=== PATIENT | male | born 1960 | race Caucasian/White ===

== ENCOUNTER 2023-09-13 06:03 | Inpatient (IN) | payer OTHER, SELFPAY ==
[2023-09-03 08:04] VITALS: BMI 27.3
[2023-09-03 08:58] LABS: Hematocrit 42.4 % (39.0-52.0); Hemoglobin 14.2 g/dL (13.0-18.0); Mean Corp Hgb Conc. 33.5 g/dL (33.0-37.0); Mean Corpuscular Hgb 33.9 pg (27.0-31.0); Mean Corpuscular Volume 101.2 fL (80.0-94.0); Mean Platelet Volume 10.7 fL (7.4-10.4); Platelet Count 267 10^3/uL (130-400); Red Blood Cell Count 4.19 10^6/uL (4.70-6.10); Red Cell Dist. Width 15.8 % (11.5-14.5); White Blood Cell Count 8.8 10^3/uL (4.8-10.8)
[2023-09-03 09:13] LABS: INR 0.92; PT 12.6 Sec (11.4-14.6)
[2023-09-03 09:14] LABS: APTT 30.1 Sec (23.4-35.0)
[2023-09-03 09:36] LABS: Glycohemoglobin (HgbA1c) 5.2 % (4.0-5.6)
[2023-09-03 11:23] LABS: ALT (SGPT) 24 U/L (0-50); AST (SGOT) 30 U/L (17-59); Albumin 4.1 g/dl (3.5-5.0); Alkaline Phosphatase 67 U/L (38-126); Blood Urea Nitrogen 16 mg/dl (9-20); Calcium 9.1 mg/dl (8.4-10.2); Carbon Dioxide 30 mmol/L (22-30); Chloride 103 mmol/L (98-107); Estimated Creatinine Clearance 115 ml/min; Glucose 114 mg/dl (70-99); Potassium 4.7 mmol/L (3.5-5.1); Sodium 135 mmol/L (135-145); Total Protein 6.7 g/dl (6.3-8.2); eGFR > 60.00
[2023-09-13] VITALS (31 sets, daily range): BP systolic 0–477; BP diastolic 42–95; BMI 27.3
[2023-09-13] MEDS: NEURONTIN 600 MG PO (06:44)
[2023-09-13] MEDS: NORMOSOL-R 1000 IV ×2 (06:44→17:21)
[2023-09-13] MEDS: TYLENOL 1000 MG PO (06:44)
[2023-09-13] MEDS: ENTEREG 12 MG PO (06:44)
[2023-09-13] MEDS: HEPARIN 5000 UNITS SC (06:44)
--- NOTE | 2023-09-13 15:13 | W.IMMPOSTOP ---
Surgical Immed Post Op Note
-
Primary Surgeon: Patrice Ortiz MD
Assisting Surgeon: YANE Sarabia
Pre-op Diagnosis: colovesical fistula
Post-op Diagnosis: same
Procedure Performed: 1) robotic sigmoidectomy 2) takedown colovesical fistula 3) takedown splenic flexure 4) partial small bowel resection 5) flexible sigmoidoscopy
Anesthesia Type: general plus local
Specimen / Cultures: 1) sigmoid colon to include source of fistula 2) small portion of small bowel
Estimated Blood Loss: 200 cc
Complications: distal left ureteral injury (addressed by urology--Dr. Lorenz--via primary repair)
Operative Findings: 1) chronically inflamed sigmoid colon fused to pelvis/bladder 2) loop of small bowel adherent to bladder
Ricci/ureteral stents and ureteral ICG by urology (Dr. Camarillo)--stents and ricci to be managed by urology
#19 Blaine in pelvis
Will send to IMU.
Will continue antibiotics for a few days as had some intraabdominal spillage.
--- NOTE | 2023-09-13 16:08 | CON.HOSP ---
Consultation
-
Date/Time Consultation Requested: 09/13/23
Date/Time Consultation Performed: 09/13/23
Requesting Provider: Dr Ortiz
Performing Provider:
Reason for Consultation: Medical management
Family Physician
-
Family Physician: Dixon Donaldson
Chief Complaint
-
robotic sigmoidectomy and takedown colovesical fistula
History of Present Illness
62-year-old male with past medical history of essential hypertension, tobacco use, alcohol use, diverticulitis, colovesical fistula, chronic low back pain, rectal polyp came to the hospital for robotic sigmoidectomy with takedown of Colovesicle
fistula. Patient was taken to the surgery today by colorectal. Medicine is consulted for medical management. Patient does report drinking alcohol and also does report history of smoking. Per Spouse he drinks vodka and whiskey everyday. He does
withdraw from alcohol per . Went to the rehab 18years ago but relapsed within couple months later. Last drink was yesterday per . Currently he is post anesthesia and sedated. Denies chest pain
Medical History
Past Medical History
Past Medical History: Reports HTN
Past Surgical History: Reports Bowel Resection
Social History
Tobacco: Smoker
Alcohol: Daily
Family History
Family History: Reviewed & Not Pertinent
Allergies / Home Medications
Allergies reflects when Allergies were last updated in [employer]
Home Medications with original date entered in [employer]
Allergy/Medication List:
Allergies
Allergy/AdvReac Type Severity Reaction Status Date / Time
lisinopril Allergy Swelling/face Verified 09/13/23 06:16
swelling
Home Medications
hydrocodone 5 mg-acetaminophen 325 mg tablet 1 tab PO Q4H PRN moderate pain 04/13/23
oxycodone 5 mg tablet 5 mg PO Q6H PRN pain 09/07/23
Balance Of Nature 2 cap PO DAILY 09/13/23
sodium sul 1.479 gram-potas ch 0.188 gram-magnes sul 0.225 gram tablet (Sutab) 0 tab PO PER PKG DIR 09/13/23
Review of Systems
-
History Source: Patient
A 12 point Review of Systems was completed except as noted: Yes
Physical Exam
Vital Signs
Vital Signs
Temp Pulse Resp BP Pulse Ox
98.8 F 102 35 90/73 96
09/13/23 15:28 09/13/23 15:28 09/13/23 15:28 09/13/23 15:28 09/13/23 15:28
Physical Exam
General: Well Nourished and No Apparent Distress
HEENT: Anicteric and Moist Mucous Membranes
Cardiac: S1/S2 and Regular Rhythm
Breast: Deferred by me
GI: Soft, Non Tender and Non Distended
Genito-urinary: Morgan Catheter
Musculoskeletal: No Edema
Neuro: Awake
Psych: Calm
Laboratory Results
-
PT 12.6 Sec (11.4-14.6) 09/03/23 06:42
INR 0.92 09/03/23 06:42
APTT 30.1 Sec (23.4-35.0) 09/03/23 06:42
Total Bilirubin 1.0 mg/dl (0.2-1.3) 09/03/23 06:42
AST 30 U/L (17-59) 09/03/23 06:42
ALT 24 U/L (0-50) 09/03/23 06:42
Alkaline Phosphatase 67 U/L (38-126) 09/03/23 06:42
Impression / Plan
-
Elective robotic sigmoidectomy with takedown of colovesicular fistula.
Management per colorectal
DVT prophylaxis per colorectal
basic labs pending which are ordered by primary team
pain control
Also with Morgan catheter along with ureteral stent and ureteral ICG by urology
Management per urology
Alcohol use with abuse
MSAS; ativan prn
folic acid,thiamine
IVF
Currently not actively withdrawing, last drink per was yesterday. If does show signs of withdrawal or MSAS high then can be started on phenobarbital or Precedex
hx of smoking
start nicotine patch
DVTppx
per primary team
Full code
[2023-09-13] MEDS: DILAUDID 0.5 MG IV ×2 (16:12→20:01)
[2023-09-13 16:21] LABS: % Basophils 0.3 % (0-2); % Immature Granulocytes 0.3 % (0-0.5); % Lymphocytes 8.7 % (20.5-51.1); % Monocytes 9.5 % (1.7-9.3); % Neutrophils 81.2 % (42.2-75.2); Absolute Lymphocytes 0.6 10^3/uL (1.2-3.4); Absolute Monocytes 0.7 10^3/uL (0.1-0.6); Absolute Neutrophils 5.6 10^3/uL (1.4-6.5); Hematocrit 38.2 % (39.0-52.0); Mean Corpuscular Hgb 33.7 pg (27.0-31.0); Mean Platelet Volume 10.2 fL (7.4-10.4); Nucleated Red Blood Cells % 0 % (-); Platelet Count 248 10^3/uL (130-400); Red Blood Cell Count 3.86 10^6/uL (4.70-6.10); White Blood Cell Count 6.9 10^3/uL (4.8-10.8)
[2023-09-13] MEDS: ATIVAN 1 MG IV (16:39)
[2023-09-13 16:40] LABS: Blood Urea Nitrogen 21 mg/dl (9-20); Carbon Dioxide 18 mmol/L (22-30); Chloride 102 mmol/L (98-107); Estimated Creatinine Clearance > 125 ml/min; Glucose 213 mg/dl (70-99); Magnesium 2.3 mg/dl (1.6-2.3); Potassium 3.9 mmol/L (3.5-5.1); Sodium 133 mmol/L (135-145); eGFR > 60.00
[2023-09-13] MEDS: TORADOL 10 MG IV (17:23)
[2023-09-13] MEDS: TYLENOL PO ×2 (19:06→23:30)
[2023-09-13] MEDS: FOLVITE PO (19:07)
[2023-09-13] MEDS: NICODERM TRANSDERMAL TRANSDERM (19:07)
--- NOTE | 2023-09-13 19:19 | PTCARENOTE ---
pt arrived to imu from [facility] at 1820. pt drowsy but awakens to voice. sinus rythym on monitor. sats 98 on 2 liters occasional moist cough. bwel sounds hypoactive abd soft. maykel to right abd draining large amts bloody drainage. 230 mls emptied since
arrival to floor. dr judge notified via tiger text. spoke with pacu nurse who was able to contact surgeon in the or. will continue to monitor. reported to oncoming shift. ricci with stents in place draining radha urine. incisions approximated with
no drainage. no signs of alcohol withdrawal apparent at this time.
[2023-09-13 19:37] LABS: Hematocrit 35.5 % (39.0-52.0); Hemoglobin 12.6 g/dL (13.0-18.0)
--- NOTE | 2023-09-13 19:49 | W.PN.UPDATE ---
Update Note
Progress Note Update
Updated by nursing in IMU that patient put out a lot of bloody output into IDA. I evaluated patient at bedside recently. HR high 90s. BP 116/81. IDA output is dark blood. Abdomen not obviously distended. Patient groggy but appropriate. Holding
Toradol. Ordered a gram of Tranexemic Acid IV. Repeat Hg 12.6 from 13.0. Will recheck at [facility].
[2023-09-13] MEDS: TRANEXAMIC ACID 100 IV (19:51)
[2023-09-13] MEDS: THIAMINE INJECTION 200 MG IV (19:51)
[2023-09-13] MEDS: TYLENOL 650 MG PO (20:01)
[2023-09-13] MEDS: FLOMAX 0.400000000000000022 MG PO (20:42)
[2023-09-14] VITALS (47 sets, daily range): BP systolic 90–132; BP diastolic 60–87; BMI 26.6
[2023-09-14] MEDS: DILAUDID 0.5 MG IV ×8 (00:12→22:46)
[2023-09-14] MEDS: NORMOSOL-R 1000 IV ×2 (02:07→12:02)
[2023-09-14] MEDS: TYLENOL 650 MG PO ×5 (02:25→20:07)
[2023-09-14 04:03] LABS: % Basophils 0.6 % (0-2); % Immature Granulocytes 0.1 % (0-0.5); % Lymphocytes 10.4 % (20.5-51.1); % Monocytes 9.6 % (1.7-9.3); % Neutrophils 79.3 % (42.2-75.2); Absolute Lymphocytes 0.8 10^3/uL (1.2-3.4); Absolute Monocytes 0.7 10^3/uL (0.1-0.6); Absolute Neutrophils 5.7 10^3/uL (1.4-6.5); Hematocrit 34.2 % (39.0-52.0); Hemoglobin 11.6 g/dL (13.0-18.0); Mean Corp Hgb Conc. 33.9 g/dL (33.0-37.0); Mean Corpuscular Hgb 33.4 pg (27.0-31.0); Mean Corpuscular Volume 98.6 fL (80.0-94.0); Mean Platelet Volume 10.8 fL (7.4-10.4); Nucleated Red Blood Cells % 0 % (-); Platelet Count 226 10^3/uL (130-400); Red Blood Cell Count 3.47 10^6/uL (4.70-6.10); Red Cell Dist. Width 14.9 % (11.5-14.5); White Blood Cell Count 7.2 10^3/uL (4.8-10.8)
[2023-09-14 04:42] LABS: Blood Urea Nitrogen 26 mg/dl (9-20); Calcium 7.7 mg/dl (8.4-10.2); Carbon Dioxide 22 mmol/L (22-30); Chloride 100 mmol/L (98-107); Estimated Creatinine Clearance 115 ml/min; Glucose 197 mg/dl (70-99); Magnesium 2.5 mg/dl (1.6-2.3); Potassium 4.4 mmol/L (3.5-5.1); Sodium 132 mmol/L (135-145); eGFR > 60.00
--- NOTE | 2023-09-14 06:31 | PTCARENOTE ---
Patient with large amount of sanguinous drainage out of the right IDA tube. Surgeon made aware and ordered tranexamic acid. Total output of 470 from IDA drain overnight. Patient OOB to chair per request. Vital signs stable.
--- NOTE | 2023-09-14 06:33 | PTCARENOTE ---
Patient with 8/10 abd pain despite dilaudid being administered at 0445. Patient not due until 845 and requesting another dose. call center specialist provider made aware and ordered 1x dose.
[2023-09-14] MEDS: ENTEREG 12 MG PO ×2 (09:02→20:07)
[2023-09-14] MEDS: PROTONIX 40 MG PO (09:02)
[2023-09-14] MEDS: INVANZ 60 MG IV (09:02)
[2023-09-14] MEDS: NICODERM TRANSDERMAL TRANSDERM (09:03)
[2023-09-14] MEDS: FOLVITE 1 MG PO (09:03)
[2023-09-14] MEDS: THIAMINE INJECTION 200 MG IV ×2 (09:03→20:07)
--- NOTE | 2023-09-14 11:58 | W.PN.URO.CBU ---
Today's Communication / Plan
-
keep ricci and stents
check maykel fluid for cr level
eventual plan for stent exchange in OR next week
Assessment / Plan
-
s/p colectomy with takedown of colo-ves fistula and repair of left ureteral injury
pt has ricci and bilateral open ended stents in place
serum cr normal- with high maykel output will check for cr level
plan is to continue all urologic drains as it- with plan early next week in or to exchange left ureteral stent for internal JJ
Diagnosis
-
Date of Service: September 14, 2023
-
Patient Diagnosis:
s/p colectomy with repair of colo-ves fistula and repair of left ureteral injury
Post Op Day:
09/13/23
Subjective
-
pt awake
some mild abd pain
ricci and both ureteral stents in place
urine bloody but good output
high Maykel output
Objective
-
Vital Signs
Temp Pulse Resp BP Pulse Ox
98.0 F 95 22 103/70 93
09/14/23 11:10 09/14/23 06:00 09/14/23 06:00 09/14/23 06:00 09/14/23 06:00
Intake and Output
09/13/23 09/14/23 09/15/23
06:59 06:59 06:59
Intake Total 1550 / 1550
Output Total 2202 / 2202 90 / 90
Balance -652 / -652 -90 / -90
Intake:
IV fluids (Total) 1550 / 1550
normosol 350 / 350
Output:
Drain Output (Total) 1177 / 1177 90 / 90
Right Lower Abdomen Jose G- 1177 / 1177 90 / 90
Mcdaniel
Right Upper Abdomen Jose G- 0 / 0
Mcdaniel
Urine, Ricci 1025 / 1025
Laboratory Results
09/14/23 03:10
09/14/23 03:10
Physical Exam
-
General - no acute distress
Abdomen - soft, appropriately tender
Genitalia - normal- ricci and bilateral ureteral stents in place
Skin - warm & dry with no rash
Neuro - AOx3, no motor deficits
Extremities - no clubbing, no cyanosis, no edema
Incision - clean, dry
[2023-09-14 13:31] LABS: Body Fluid Creatinine 0.8 mg/dl
--- NOTE | 2023-09-14 13:51 | W.PN.CRS1 ---
Addendum entered and electronically signed by Rui Ortiz MD 09/14/23 17:33:
Of note, I updated the via a voicemail message to her cell phone this afternoon.
Addendum entered and electronically signed by Rui Ortiz MD 09/14/23 17:28:
I saw and examined the patient.
The PA's note was reviewed and I agree with the note.
Comment:
Patient seen with PA in the a.m.
Was sitting up in a chair. Was verbal and appropriate. A bit groggy. Some hiccups. Denied nausea. Admitted to discomfort particular at the drain site. Asked for stronger pain medication.
Afebrile with reasonable vital signs. White count normal at 7.2. Hemoglobin 11.6 from 12.6 preop.
Abdomen a bit distended. Incisions look good. MAYKEL with bloody drainage. Ricci and bilateral stents in place. Urine dark.
Continuing sips and chips for now.
Management of Ricci and stents per urology. Dr. Wu's note noted and appreciated. MAYKEL creatinine was sent off and was consistent with serum at 0.8.
Holding Toradol and Lovenox for now given bloody MAYKEL output.
Appreciate hospitalist help in medical management.
Keep in IMU for now.
Original Note:
Today's Communication / Plan
-
continue maykel drain/abx/imu status
continue ricci/stent per urology
increase dilaudid
Assessment/Plan
-
POD#1 robotic sigmoidectomy, takedown colovesical fistula, takedown splenic flexure, partial small bowel resection, flexible sigmoidoscopy
1. Vitals normal.
2. Hgb 11.6 - continue to trend.
3. OOB to chair as tolerated.
4. Continue ricci and stents per urology.
5. Continue MAYKEL drain.
6. Continue antibiotics for now.
7. OR pathology pending.
8. Increase IV Dilaudid to q2h PRN.
9. Continue NPO for now until bowel function returns.
10. Keep in IMU today.
Subjective Data
Procedure
09/14/2023- 1) robotic sigmoidectomy 2) takedown colovesical fistula 3) takedown splenic flexure 4) partial small bowel resection 5) flexible sigmoidoscopy
Subjective Data
Date of Service: September 14, 2023
Patient states he feels a little bloated. He has pain around his MAYKEL drain site. He has no nausea or vomiting. He has hiccups. He is sitting in a chair.
Objective Data
-
Vital Signs
Temp Pulse Resp BP Pulse Ox
98.0 F 88 20 104/68 95
09/14/23 11:10 09/14/23 12:30 09/14/23 12:30 09/14/23 12:30 09/14/23 12:30
Intake & Output
09/13/23 09/14/23 09/15/23
06:59 06:59 06:59
Intake Total 1550 / 1550
Output Total 2202 / 2202 135 / 135
Balance -652 / -652 -135 / -135
Intake:
IV fluids (Total) 1550 / 1550
normosol 350 / 350
Output:
Drain Output (Total) 1177 / 1177 135 / 135
Right Lower Abdomen Jose G- 1177 / 1177 135 / 135
Mcdaniel
Right Upper Abdomen Jose G- 0 / 0
Mcdaniel
Urine, Ricci 1025 / 1025
Lab Results
09/14/23 03:10
09/14/23 03:10
Physical Exam
-
General: No Acute Distress and AOx3
Abdomen: Soft, Non Distended, Tender (Right lower quadrant around MAYKEL drain site) and Other (MAYKEL drain with bloody output)
Skin: Warm and Dry
Incision: Clear, Dry, Intact
--- NOTE | 2023-09-14 15:06 | PTCARENOTE ---
Pt assisted back to bed. sat out in chair over 8 hours today. anxious to get up and walking. sample from IDA drain was sent to lab earlier for testing per Dr. Segundo orders. PT resting comfortably when undisturbed.
--- NOTE | 2023-09-14 16:53 | CM ---
Patient who is s/p robotic sigmoidectomy and takedown colovesical fistula, Morgan catheter along with ureteral stent and ureteral ICG. IDA drain. Reeiving IV ertapenum. MSAS 1 today. Plan stent exchange in OR next week.
Met with patient who resides with his in a 2 story house.
The patient was Independent for ADLs/ambulation.
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
No DME or prior VN.
PCP - Dixon Donaldson
[facility] - [facility]
CM Consult: Substance Abuse
Offered [facility] for substance abuse resources and patient declined.
CM continuing to follow for d/c needs.
Plan offer VN if patient goes home with IDA drain.
Plan home.
--- NOTE | 2023-09-14 18:34 | PTCARENOTE ---
Pt felt urge to move bowels, sat on bedpan but only passed flatus. PRN Dilaudid administered for 9/10 discomfort to right lower abd quadrant - see MAR for details. Pt's in to visit-updated by this RN and by Dr. Ortiz by phone, questions
answered, will continue to closely monitor.
--- NOTE | 2023-09-14 19:07 | W.PN.HOSP.TC ---
Today's Communication/Plan
-
follow labs
observe for risk of Etoh withdrawal
Assessment / Plan
Assessment / Plan
Elective robotic sigmoidectomy with takedown of colovesicular fistula
Morgan catheter to continue
Hx of alcohol use
Hx of cig smoking
reviewed importance of cessation
full code
Anticipated Discharge: > 48 hours
Subjective/Interval History
-
Date of Service: September 14, 2023
Awake, alert
Objective Data
-
Vital Signs:
Vital Signs
Temp Pulse Resp BP Pulse Ox
98.0 F 99 16 129/87 93
09/14/23 11:10 09/14/23 18:00 09/14/23 18:00 09/14/23 18:00 09/14/23 14:30
I&O
09/13/23 09/14/23 09/15/23
06:59 06:59 06:59
Intake Total 1550 / 1550 2160 / 2160
Output Total 2202 / 2202 765 / 765
Balance -652 / -652 1395 / 1395
Review of Systems
-
History Source: Patient and Family ( at bedside)
Constitutional: Denies Fever
EENT: Reports No Symptoms Reported
Respiratory: Reports No Symptoms; Denies Cough or Trouble Breathing
Cardiac: Reports No Symptoms; Denies Chest Pain
Abdomen/GI: Reports Abdominal Pain; Denies Nausea or Vomiting
Genitourinary: Reports No Symptoms
Neuro: Reports No Symptoms
Physical Exam
-
General: Well Developed, Well Nourished and No Apparent Distress
HEENT: Normocephalic, Atraumatic and Moist Mucous Membranes
Respiratory: Clear to Auscultation; Negative Wheezes, Rales or Rhonchi
Cardiac: Regular Rhythm and S1/S2
GI: Soft; Negative Normal Bowel Sounds (absent BS)
Genito-urinary: Morgan
Musculoskeletal: No Clubbing, No Cyanosis and No Edema
Neuro: Awake, Alert and Oriented
[2023-09-14] MEDS: FLOMAX 0.400000000000000022 MG PO (20:07)
[2023-09-14] MEDS: NORMOSOL-R IV (23:53)
[2023-09-14] MEDS: TYLENOL PO (23:55)
[2023-09-15] VITALS (26 sets, daily range): BP systolic 109–153; BP diastolic 70–94; BMI 27.1
[2023-09-15] MEDS: DILAUDID 0.5 MG IV ×7 (01:05→22:55)
[2023-09-15] MEDS: TYLENOL 650 MG PO ×5 (03:26→19:47)
[2023-09-15 03:50] LABS: Hematocrit 29.1 % (39.0-52.0); Mean Corp Hgb Conc. 34.4 g/dL (33.0-37.0); Mean Platelet Volume 10.3 fL (7.4-10.4); Platelet Count 201 10^3/uL (130-400); Red Blood Cell Count 2.94 10^6/uL (4.70-6.10); Red Cell Dist. Width 14.6 % (11.5-14.5); White Blood Cell Count 10.2 10^3/uL (4.8-10.8)
--- NOTE | 2023-09-15 03:57 | PTCARENOTE ---
Patient requiring prn dilaudid almost every 2 hours overnight. Right IDA drain still with sanguinous drainage, dressing clean dry and intact. Morgan draining blood tinged urine with stents intact.
[2023-09-15 04:13] LABS: Blood Urea Nitrogen 18 mg/dl (9-20); Calcium 7.9 mg/dl (8.4-10.2); Carbon Dioxide 28 mmol/L (22-30); Chloride 96 mmol/L (98-107); Estimated Creatinine Clearance > 125 ml/min; Glucose 125 mg/dl (70-99); Potassium 3.8 mmol/L (3.5-5.1); Sodium 127 mmol/L (135-145); eGFR > 60.00
[2023-09-15] MEDS: INVANZ 60 MG IV (07:28)
--- NOTE | 2023-09-15 07:31 | W.PN.URO.CBU ---
Today's Communication / Plan
-
continue ricci and external stents
Assessment / Plan
-
s/p colectomy with takedown of colo-ves fistula and repair of left ureteral injury
pt has ricci and bilateral open ended stents in place
serum cr normal- with high maykel output but no evid of urine leak
plan is to continue all urologic drains as it- with plan early next week in or (sunday or sun) to exchange left ureteral stent for internal JJ
reviewed plan with patient
Diagnosis
-
Date of Service: September 15, 2023
-
Patient Diagnosis:
s/p colectomy with repair of colo-ves fistula and repair of left ureteral injury
Post Op Day:
09/13/23
Subjective
-
pt somewhat anxious
c/o primaryily of right hip pain
some bloating
urine clearing
good output
maykel still with moderate drainage- cr check yesterday c/w serum
Objective
-
Vital Signs
Temp Pulse Resp BP Pulse Ox
98.4 F 87 19 112/70 97
09/15/23 03:15 09/15/23 06:05 09/15/23 06:05 09/15/23 06:05 09/14/23 20:50
Intake and Output
09/14/23 09/15/23 09/16/23
06:59 06:59 06:59
Intake Total 1550 / 1550 2160 / 2160
Output Total 2202 / 2202 925 / 925 1040 / 1040
Balance -652 / -652 1235 / 1235 -1040 / -1040
Intake:
Oral fluids 960 / 960
IV fluids (Total) 1550 / 1550 1200 / 1200
normosol 350 / 350
Output:
Drain Output (Total) 1177 / 1177 425 / 425 40 / 40
Right Lower Abdomen Jose G- 1177 / 1177 425 / 425 40 / 40
Mcdaniel
Right Upper Abdomen Jose G- 0 / 0
Mcdaniel
Urine, Ricci 1025 / 1025 500 / 500 1000 / 1000
Laboratory Results
09/15/23 03:32
09/15/23 03:32
Review of Systems
-
Constitutional: Fatigue
Respiratory: No Symptoms
Cardiac: No Symptoms
Abdomen/GI: Abdominal Pain
Musculoskeletal: Joint Pain
Physical Exam
-
General -, no acute distress
Abdomen - mild distension
Genitalia - ricci and external stents in place
Skin - warm & dry with no rash
Neuro - AOx3, no motor deficits
Extremities - no clubbing, no cyanosis, no edema
Incision - clean, dry
[2023-09-15] MEDS: ENTEREG 12 MG PO ×2 (08:28→19:47)
[2023-09-15] MEDS: PROTONIX 40 MG PO (08:28)
[2023-09-15] MEDS: NICODERM TRANSDERMAL 14 MG TRANSDERM (08:28)
[2023-09-15] MEDS: FOLVITE 1 MG PO (08:28)
[2023-09-15] MEDS: THIAMINE INJECTION 200 MG IV ×2 (08:29→19:47)
[2023-09-15] MEDS: DILAUDID 0.25 MG IV (11:36)
--- NOTE | 2023-09-15 12:20 | W.PN.CRS1 ---
Today's Communication / Plan
-
Clears.
Lovenox.
Assessment/Plan
-
POD 2.
1. trial clears.
2. vitals and labs reasonable.
3. ricci/stents per urology.
4. OOB.
5. start Lovenox this evening. Continue TEDs/SCDs.
6. continue IMU care.
7. appreciate hospitalist help.
Subjective Data
Procedure
09/14/2023- 1) robotic sigmoidectomy 2) takedown colovesical fistula 3) takedown splenic flexure 4) partial small bowel resection 5) flexible sigmoidoscopy
Subjective Data
Date of Service: September 15, 2023
No hiccoughs this am.
No nausea.
Sitting in chair.
Objective Data
-
Vital Signs
Temp Pulse Resp BP Pulse Ox
98.3 F 99 13 128/84 97
09/15/23 11:08 09/15/23 11:30 09/15/23 11:30 09/15/23 11:30 09/14/23 20:50
Intake & Output
09/14/23 09/15/23 09/16/23
06:59 06:59 06:59
Intake Total 1550 / 1550 2160 / 2160
Output Total 2202 / 2202 925 / 925 1085 / 1085
Balance -652 / -652 1235 / 1235 -1085 / -1085
Intake:
Oral fluids 960 / 960
IV fluids (Total) 1550 / 1550 1200 / 1200
normosol 350 / 350
Output:
Drain Output (Total) 1177 / 1177 425 / 425 85 / 85
Right Lower Abdomen Jose G- 1177 / 1177 425 / 425 85 / 85
Mcdaniel
Right Upper Abdomen Jose G- 0 / 0
Mcdaniel
Urine, Ricci 1025 / 1025 500 / 500 1000 / 1000
Lab Results
09/15/23 03:32
09/15/23 03:32
Physical Exam
-
General: No Acute Distress
Chest: Clear
Cardiovascular: Regular Rate & Rhythm
Abdomen: Distended (mild), Tender (incisional) and Other (IDA with bloody fluid)
Extremities: No Calf Tenderness
Incision: Clear, Dry, Intact and No Skin Erythema
[2023-09-15] MEDS: NORMOSOL-R 1000 IV (12:39)
[2023-09-15] MEDS: FLUSH (NSS) 2 FLUSH IV (14:54)
--- NOTE | 2023-09-15 15:04 | PTCARENOTE ---
Pt was rec'd from environmental field technician and assisted oob to chair, plan of care discussed with Dr. Moran and pt is ok to cautiously ambulate a few steps in room and sit in chair, however not cleared to walk in halls due to stents and ricci. Pt updated and in
agreement. Pt seen by GI and clear liq diet ordered, IVF resumed, pt resting when undisturbed. PRN Dilaudid administered see MAR for details. Pt calm and cooperative all shift, no s/s ETOH w/d, agreeable to Nicotine patch this am. WIll cont to
monitor.
--- NOTE | 2023-09-15 17:27 | W.PN.HOSP.TC ---
Today's Communication/Plan
-
started on clears, as per CRS
Assessment / Plan
Assessment / Plan
Elective robotic sigmoidectomy with takedown of colovesicular fistula
post op ileus slowly resolving
Morgan catheter to continue
Hx of alcohol use
pt states 2 Vodkas per day. Denies withdrawal symptoms, but drank regularly. No tremor or evidence of withdrawal currently
Hx of cig smoking
reviewed importance of cessation
full code
Anticipated Discharge: > 48 hours
Subjective/Interval History
-
Date of Service: September 15, 2023
awake, alert, no stool production, minimal flatus passed
Objective Data
-
Vital Signs:
Vital Signs
Temp Pulse Resp BP Pulse Ox
98.2 F 102 16 122/76 97
09/15/23 15:28 09/15/23 14:00 09/15/23 14:00 09/15/23 12:00 09/15/23 08:56
I&O
09/14/23 09/15/23 09/16/23
06:59 06:59 06:59
Intake Total 1550 / 1550 2160 / 2160 960 / 960
Output Total 2202 / 2202 925 / 925 1085 / 1085
Balance -652 / -652 1235 / 1235 -125 / -125
Review of Systems
-
History Source: Patient and Coordinated Provider
Constitutional: Reports No Symptoms; Denies Fever
EENT: Reports No Symptoms Reported
Respiratory: Reports No Symptoms
Cardiac: Reports No Symptoms; Denies Chest Pain
Abdomen/GI: Reports Abdominal Pain and Constipated
Musculoskeletal: Reports No Symptoms
Physical Exam
-
General: Well Developed, Well Nourished and No Apparent Distress
HEENT: Normocephalic, Atraumatic and Moist Mucous Membranes
Respiratory: Clear to Auscultation and Rhonchi (scattered upper airway rhonchi, clears with coughing); Negative Wheezes or Rales
Cardiac: Regular Rhythm and S1/S2
GI: Soft and Distended; Negative Normal Bowel Sounds (scatter, but reduced BS)
Genito-urinary: Morgan
Musculoskeletal: No Clubbing, No Cyanosis and No Edema
Neuro: Awake, Alert and Oriented
[2023-09-15] MEDS: LOVENOX 40 MG SC (17:45)
[2023-09-15] MEDS: FLOMAX 0.400000000000000022 MG PO (19:47)
[2023-09-16] VITALS (16 sets, daily range): BP systolic 122–173; BP diastolic 77–122; BMI 26.7
[2023-09-16] MEDS: TYLENOL PO ×2 (00:01→03:11)
[2023-09-16] MEDS: NORMOSOL-R 1000 IV ×2 (00:58→14:06)
[2023-09-16] MEDS: DILAUDID 0.5 MG IV ×3 (03:15→10:53)
[2023-09-16 06:24] LABS: % Basophils 0.2 % (0-2); % Eosinophils 0.4 % (0-6); % Immature Granulocytes 0.5 % (0-0.5); % Lymphocytes 7.8 % (20.5-51.1); % Monocytes 8.5 % (1.7-9.3); % Neutrophils 82.6 % (42.2-75.2); Absolute Immature Granulocytes 0.1 10^3/uL (0-0.05); Absolute Lymphocytes 0.8 10^3/uL (1.2-3.4); Absolute Monocytes 0.9 10^3/uL (0.1-0.6); Absolute Neutrophils 8.5 10^3/uL (1.4-6.5); Hematocrit 26.7 % (39.0-52.0); Hemoglobin 9.3 g/dL (13.0-18.0); Mean Corp Hgb Conc. 34.8 g/dL (33.0-37.0); Mean Corpuscular Hgb 33.9 pg (27.0-31.0); Mean Corpuscular Volume 97.4 fL (80.0-94.0); Mean Platelet Volume 10.2 fL (7.4-10.4); Nucleated Red Blood Cells % 0 % (-); Platelet Count 206 10^3/uL (130-400); Red Blood Cell Count 2.74 10^6/uL (4.70-6.10); Red Cell Dist. Width 13.9 % (11.5-14.5); White Blood Cell Count 10.2 10^3/uL (4.8-10.8)
[2023-09-16 06:37] LABS: Blood Urea Nitrogen 7 mg/dl (9-20); Calcium 8.1 mg/dl (8.4-10.2); Carbon Dioxide 26 mmol/L (22-30); Chloride 100 mmol/L (98-107); Estimated Creatinine Clearance > 125 ml/min; Glucose 96 mg/dl (70-99); Magnesium 2.4 mg/dl (1.6-2.3); Potassium 3.8 mmol/L (3.5-5.1); Sodium 131 mmol/L (135-145); eGFR > 60.00
--- NOTE | 2023-09-16 07:45 | W.PN.URO.CBU ---
Today's Communication / Plan
-
continue ricci and stents
OR /sun for internal stent placement
Assessment / Plan
-
s/p colectomy with takedown of colo-ves fistula and repair of left ureteral injury
pt has ricci and bilateral open ended stents in place
serum cr normal
plan is to continue all urologic drains as it- with plan early next week in or (sunday or sun) to exchange left ureteral stent for internal JJ
reviewed plan with patient
Diagnosis
-
Date of Service: September 16, 2023
-
Patient Diagnosis:
s/p colectomy with repair of colo-ves fistula and repair of left ureteral injury
Post Op Day:
09/13/23
Subjective
-
pt looks better
says he is doing better
urine clearing
wbc normal/cr within nl limits
maykel drain output slowing
Objective
-
Vital Signs
Temp Pulse Resp BP Pulse Ox
98.4 F 90 20 125/81 95
09/16/23 07:20 09/16/23 06:00 09/16/23 06:00 09/16/23 02:00 09/15/23 22:20
Intake and Output
09/15/23 09/16/23 09/17/23
06:59 06:59 06:59
Intake Total 2160 / 2160 4200 / 4200
Output Total 925 / 925 4435 / 4435
Balance 1235 / 1235 -235 / -235
Intake:
Oral fluids 960 / 960 3040 / 3040
IV fluids (Total) 1200 / 1200 1160 / 1160
Output:
Drain Output (Total) 425 / 425 210 / 210
Right Lower Abdomen Jose G- 425 / 425 210 / 210
Mcdaniel
Urine, Ricci 500 / 500 4225 / 4225
Laboratory Results
09/16/23 06:15
09/16/23 06:15
Physical Exam
-
General -no acute distress
Abdomen - soft, mild distension
Genitalia - ricci and stens in place and secure
[2023-09-16] MEDS: FOLVITE 1 MG PO (08:59)
[2023-09-16] MEDS: TYLENOL 650 MG PO ×5 (08:59→23:32)
[2023-09-16] MEDS: ENTEREG 12 MG PO ×2 (08:59→20:22)
[2023-09-16] MEDS: THIAMINE INJECTION 200 MG IV (09:00)
[2023-09-16] MEDS: NICODERM TRANSDERMAL 14 MG TRANSDERM (09:00)
[2023-09-16] MEDS: INVANZ 60 MG IV (09:00)
[2023-09-16] MEDS: PROTONIX 40 MG PO (09:00)
[2023-09-16] MEDS: FLUSH (NSS) 2 FLUSH IV (10:53)
--- NOTE | 2023-09-16 12:22 | W.PN.CRS1 ---
Addendum entered and electronically signed by Rui Ortiz MD 09/16/23 14:31:
I saw and examined the patient.
The PA's note was reviewed and I agree with the note.
Comment:
Patient seen in a.m. with PA.
Look good. No hiccups. No nausea. Tolerating clears. Admitted to loose BMs.
Vitals and blood work reasonable.
Abdomen mildly distended. Incisions look good. Drain with sanguinous output.
Stents and Ricci still in place. Management per urology.
Diet advanced to fulls.
Continue IMU today.
Appreciate help of hospitalist/Dr. Tijerina.
Continue empiric Invanz.
Original Note:
Today's Communication / Plan
-
fulls
Assessment/Plan
-
POD #3.
1.� Advance diet to fulls.
2.� vitals and labs reasonable.�
3.� ricci/stents per urology, likely /Sun for OR exchange.
4.� OOB.
5.� Continue Lovenox.� Continue TEDs/SCDs.
6.� continue IMU care today. If doing well, likely downgrade tomorrow.
7.� appreciate hospitalist help.
8. Continue MAYKEL drain for now (bloody output).
Subjective Data
Procedure
09/14/2023- 1) robotic sigmoidectomy 2) takedown colovesical fistula 3) takedown splenic flexure 4) partial small bowel resection 5) flexible sigmoidoscopy
Subjective Data
Date of Service: September 16, 2023
Patient states she has no complaints. He has no nausea or vomiting. He has flatus. He had a dark bloody tinged BM this morning.
Objective Data
-
Vital Signs
Temp Pulse Resp BP Pulse Ox
98.4 F 90 20 125/81 95
09/16/23 07:20 09/16/23 06:00 09/16/23 06:00 09/16/23 02:00 09/15/23 22:20
Intake & Output
09/15/23 09/16/23 09/17/23
06:59 06:59 06:59
Intake Total 2160 / 2160 4200 / 4200
Output Total 925 / 925 4435 / 4435
Balance 1235 / 1235 -235 / -235
Intake:
Oral fluids 960 / 960 3040 / 3040
IV fluids (Total) 1200 / 1200 1160 / 1160
Output:
Drain Output (Total) 425 / 425 210 / 210
Right Lower Abdomen Jose G- 425 / 425 210 / 210
Mcdaniel
Urine, Ricci 500 / 500 4225 / 4225
Lab Results
09/16/23 06:15
09/16/23 06:15
Physical Exam
-
General: No Acute Distress and AOx3
Abdomen: Soft, Distended (mild), Tender (over incision sites) and Other (maykel drain with bloody output)
Skin: Warm and Dry
Incision: Clear, Dry, Intact
--- NOTE | 2023-09-16 13:51 | W.PN.HOSP.TC ---
Today's Communication/Plan
-
continue current Tx
advance diet as per CRS
Assessment / Plan
Assessment / Plan
Elective robotic sigmoidectomy with takedown of colovesicular fistula
post op ileus slowly resolving, ricci continues to drain bloody urine
Ricci catheter to continue
Hx of alcohol use
pt states 2 Vodkas per day. Denies withdrawal symptoms, but drank regularly. No tremor or evidence of withdrawal currently
Hx of cig smoking
reviewed importance of cessation
full code
Anticipated Discharge: > 48 hours
Subjective/Interval History
-
Date of Service: September 16, 2023
In good spirits, appreciative of care
Objective Data
-
Labs:
Laboratory Results
09/16/23
06:15
WBC 10.2
Hgb 9.3 L
Hct 26.7 L
Plt Count 206
Sodium 131 L
Potassium 3.8
Chloride 100
Carbon Dioxide 26
BUN 7 L
Creatinine 0.5 L
Glucose 96
Calcium 8.1 L
Vital Signs:
Vital Signs
Temp Pulse Resp BP Pulse Ox
98.5 F 90 20 125/81 92
09/16/23 11:30 09/16/23 06:00 09/16/23 06:00 09/16/23 02:00 09/16/23 08:45
I&O
09/15/23 09/16/23 09/17/23
06:59 06:59 06:59
Intake Total 2160 / 2160 4200 / 4200
Output Total 925 / 925 4435 / 4435
Balance 1235 / 1235 -235 / -235
Review of Systems
-
History Source: Patient and Coordinated Provider
Constitutional: Reports No Symptoms; Denies Fever
EENT: Reports No Symptoms Reported
Respiratory: Reports No Symptoms
Cardiac: Reports No Symptoms; Denies Chest Pain
Abdomen/GI: Reports Abdominal Pain and Constipated (passing flatus, no stool)
Musculoskeletal: Reports No Symptoms
Physical Exam
-
General: Well Developed, Well Nourished and No Apparent Distress
HEENT: Normocephalic, Atraumatic and Moist Mucous Membranes
Respiratory: Clear to Auscultation and Rhonchi (scattered upper airway rhonchi, clears with coughing); Negative Wheezes or Rales
Cardiac: Regular Rhythm and S1/S2
GI: Soft, Tender (moderately) and Distended; Negative Normal Bowel Sounds (significant increase past 24 hrs)
Genito-urinary: Ricci
Musculoskeletal: No Clubbing, No Cyanosis and No Edema
Neuro: Awake, Alert and Oriented
[2023-09-16] MEDS: ROXICODONE 10 MG PO ×2 (14:57→19:24)
[2023-09-16] MEDS: LOVENOX 40 MG SC (17:47)
--- NOTE | 2023-09-16 18:21 | PTCARENOTE ---
Patient alert and oriented, cooperative and pleasant . Pt pulse ox > 92% throughout out the shift. lungs coarse, pt with loose productive cough for clear sputum. Sinus rhythm sinus/ tachy on monitor. Pt increased to full liquid diet and tolerating
small amounts, pt reports no rectal output nut is passing flatus. NO Hiccups. Abd is slightly distended with active bowel tones. IDA patent for sanguinous output -total of 70ml today. Morgan patent for rust colored urine and sediment. Pain medication
transitioned from IV Dilaudid to p.o Roxicodone.
--- NOTE | 2023-09-16 20:00 | PTCARENOTE ---
Resumed care of pt sitting on side of bed AAOx3. Pt in the process of getting from chair to bed. pt instructed on need for RN assistance in order to prevent any disruption to urinary stents. Pt reports understanding. Pt assisted to bed and self
positioned per comfort. Pt reports pain 8/10 at this time, See MAR. HR in the 80's in NSR on the monitor. POX 95% on RA. Lungs course with scattered rhonchi. Moist cough. + bowel, round dist abd. 4 lap sites assessed and open to air. Morgan cath in
place draining blood tinged urine, urinary stents in place. Right Lower abd IDA drain in place draining serous drainage. Pt refusing Knee high seq at this time. Palpable peripheral pulses preesnt Ecchymotic UE. Right forearm int in place infusing IV
fluid as ordered. No issues to report at this time. Will continue to monitor.
[2023-09-16] MEDS: FLOMAX 0.400000000000000022 MG PO (23:32)
[2023-09-16] MEDS: ROXICODONE 5 MG PO (23:32)
[2023-09-17] VITALS (66 sets, daily range): BP systolic 52–158; BP diastolic 36–137; BMI 26.7
[2023-09-17] MEDS: TYLENOL 650 MG PO ×2 (05:05→08:13)
[2023-09-17] MEDS: ROXICODONE 5 MG PO ×2 (06:13→10:14)
--- NOTE | 2023-09-17 07:30 | W.PN.URO.CBU ---
Today's Communication / Plan
-
plan for stent conversion tomorrow or sun
Assessment / Plan
-
s/p colectomy with takedown of colo-ves fistula and repair of left ureteral injury
pt has ricci and bilateral open ended stents in place
serum cr normal
plan is to continue all urologic drains as it- with plan early next week in or (sunday or sun) to exchange left ureteral stent for internal JJ
reviewed plan with patient
Diagnosis
-
Date of Service: September 17, 2023
-
Patient Diagnosis:
s/p colectomy with repair of colo-ves fistula and repair of left ureteral injury
Post Op Day:
09/13/23
Subjective
-
pt looks good
urine radha
maykel output declining
+ flatus
Objective
-
Vital Signs
Temp Pulse Resp BP Pulse Ox
98.0 F 77 18 136/98 97
09/17/23 03:15 09/17/23 05:00 09/17/23 05:00 09/17/23 05:00 09/17/23 04:00
Intake and Output
09/16/23 09/17/23 09/18/23
06:59 06:59 06:59
Intake Total 4200 / 4200 3080 / 3080
Output Total 4435 / 4435 1940 / 1940
Balance -235 / -235 1140 / 1140
Intake:
Oral fluids 3040 / 3040 1320 / 1320
IV fluids (Total) 1160 / 1160 1760 / 1760
Output:
Drain Output (Total) 210 / 210 90 / 90
Right Lower Abdomen Jose G- 210 / 210 90 / 90
Mcdaniel
Urine, Ricci 4225 / 4225 1850 / 1850
Laboratory Results
09/16/23 06:15
09/16/23 06:15
Physical Exam
-
General - no acute distress
Abdomen - soft, non-tende
Genitalia - ricci and stents in place
[2023-09-17] MEDS: ENTEREG 12 MG PO (08:10)
[2023-09-17] MEDS: FOLVITE 1 MG PO (08:10)
[2023-09-17] MEDS: NICODERM TRANSDERMAL 14 MG TRANSDERM (08:11)
[2023-09-17] MEDS: PROTONIX 40 MG PO (08:12)
[2023-09-17] MEDS: INVANZ 60 MG IV (08:14)
[2023-09-17 09:30] LABS: % Basophils 0.4 % (0-2); % Eosinophils 1.9 % (0-6); % Immature Granulocytes 0.4 % (0-0.5); % Lymphocytes 9.7 % (20.5-51.1); % Monocytes 12.3 % (1.7-9.3); % Neutrophils 75.3 % (42.2-75.2); Absolute Eosinophils 0.2 10^3/uL (0-0.7); Absolute Lymphocytes 0.8 10^3/uL (1.2-3.4); Absolute Neutrophils 6.3 10^3/uL (1.4-6.5); Hematocrit 24.5 % (39.0-52.0); Hemoglobin 8.4 g/dL (13.0-18.0); Mean Corp Hgb Conc. 34.3 g/dL (33.0-37.0); Mean Corpuscular Hgb 34.1 pg (27.0-31.0); Mean Corpuscular Volume 99.6 fL (80.0-94.0); Nucleated Red Blood Cells % 0 % (-); Platelet Count 269 10^3/uL (130-400); Red Blood Cell Count 2.46 10^6/uL (4.70-6.10); Red Cell Dist. Width 13.6 % (11.5-14.5); White Blood Cell Count 8.3 10^3/uL (4.8-10.8)
[2023-09-17 09:51] LABS: Blood Urea Nitrogen 8 mg/dl (9-20); Calcium 7.9 mg/dl (8.4-10.2); Carbon Dioxide 31 mmol/L (22-30); Chloride 99 mmol/L (98-107); Estimated Creatinine Clearance > 125 ml/min; Glucose 146 mg/dl (70-99); Potassium 3.1 mmol/L (3.5-5.1); Sodium 129 mmol/L (135-145); eGFR > 60.00
[2023-09-17] MEDS: TYLENOL PO ×4 (11:32→23:39)
--- NOTE | 2023-09-17 12:40 | W.PN.CRS1 ---
Today's Communication / Plan
-
fulls
stent/ricci exchange tues or wed per urology
Assessment/Plan
-
POD #4 �1) robotic sigmoidectomy 2) takedown colovesical fistula 3) takedown splenic flexure 4) partial small bowel resection 5) flexible sigmoidoscopy
1.� Advance diet to low residue.
2.� Vitals normal.
3.� Ricci/stents per urology, likely Tues/Wed for OR exchange.
4.� OOB to chair. Okay for showering.
5.� Continue Lovenox.� Continue TEDs/SCDs.
6.� Downgrade to med surg.
7.� Appreciate hospitalist help.
8.� Continue IDA drain for now (bloody output).
Subjective Data
Procedure
09/14/2023- 1) robotic sigmoidectomy 2) takedown colovesical fistula 3) takedown splenic flexure 4) partial small bowel resection 5) flexible sigmoidoscopy
Subjective Data
Date of Service: September 17, 2023
Patient states he feels 'not bad'. He does have some right-sided pain in his abdomen which is unchanged. He is having bowel movements and flatus.
Objective Data
-
Vital Signs
Temp Pulse Resp BP Pulse Ox
98.3 F 77 18 126/85 95
09/17/23 09:23 09/17/23 10:00 09/17/23 10:00 09/17/23 10:00 09/17/23 09:24
Intake & Output
09/16/23 09/17/23 09/18/23
06:59 06:59 06:59
Intake Total 4200 / 4200 3080 / 3080 120 / 120
Output Total 4435 / 4435 1940 / 1940 400 / 400
Balance -235 / -235 1140 / 1140 -280 / -280
Intake:
Oral fluids 3040 / 3040 1320 / 1320 120 / 120
IV fluids (Total) 1160 / 1160 1760 / 1760
Output:
Drain Output (Total)
Right Lower Abdomen Jose G-
Mcdaniel
Urine, Ricci 4225 / 4225 1850 / 1850 400 / 400
Lab Results
09/17/23 09:15
09/17/23 09:15
Physical Exam
-
General: No Acute Distress and AOx3
Abdomen: Soft, Non Distended, Tender (Right lower quadrant near drain site) and Other (IDA drain bloody)
--- NOTE | 2023-09-17 12:54 | PTCARENOTE ---
Patient out of bed to chair, bathed by RN while in chair. Urology said no showers at this time due to Ricci and stents. Patients right lower quadrant pain is relieved by Oxycodone 5mg. Good appetite. Patients urine is blood tinged, ricci care
provided. Patient in good spirits compliant with plan of care.
--- NOTE | 2023-09-17 12:57 | PN.CDI ---
CDI
- -
CDI:
Physician Documentation Request
Admit Date: 09/13/23 06:03
Dear Colorectal,
Please review the following and provide your response in the progress notes.
Clinical Indicators:
- 09/17 Colorectal POD#4
- 09/13 OP report EBL 200ml
- 09/13 RN note 'maykel to right abd draining large amts bloody drainage. 230 mls emptied '
- 09/14 RN note 'Total output of 470 from MAYKEL drain overnight'
- No PMH anemia documented
Laboratory Tests
09/13/23 09/14/23 09/14/23
19:18 00:10 03:10
Hgb 12.6 L 12.0 L 11.6 L
09/15/23 09/16/23 09/17/23
03:32 06:15 09:15
Hgb 10.0 L 9.3 L 8.4 L
Please clarify in the progress notes, the appropriate diagnosis, that supports the above lab abnormalities and additional evaluation, monitoring and/or treatment rendered:
Anemia, due to acute blood loss and hemodilution
Anemia due to hemodilution only
Abnormal lab values, clinically insignificant
Other
Use of terms such as suspected, likely, concern for, or probable (associated with a specific diagnosis that is being evaluated, monitored, or treated as if it exists) are acceptable and can be coded in the inpatient setting, when documented at the
time of discharge.
Thank you,
Sagar Gleason RN
CDI Specialist
Please use your independent medical judgment in providing your response.
--- NOTE | 2023-09-17 13:07 | PN.CDI ---
CDI
- -
CDI:
Physician Documentation Request
Admit Date: 09/13/23 06:03
Dear Colorectal,
Please review the following and provide your response in the progress notes.
Clinical Indicators:
- 09/17 Colorectal POD#4
- 09/13-09/16 7L IVF
- Sodium levels as follows:
Laboratory Tests
09/03/23 09/13/23 09/14/23
06:42 16:13 03:10
Sodium 135 133 L 132 L
09/15/23 09/16/23 09/17/23
03:32 06:15 09:15
Sodium 127 L 131 L 129 L
Please provide a diagnosis for the above lab values that were monitored and treatment rendered:
Hyponatremia
Clinically insignificant abnormal lab value
Other
Use of terms such as suspected, likely, concern for, or probable (associated with a specific diagnosis that is being evaluated, monitored, or treated as if it exists) are acceptable and can be coded in the inpatient setting, when documented at the
time of discharge.
Thank you,
Sagar Gleason RN
CDI Specialist
Please use your independent medical judgment in providing your response.
--- NOTE | 2023-09-17 13:12 | W.PN.HOSP.TC ---
Today's Communication/Plan
-
Monitor vitals
See plan
Nicotine patch
Ativan as needed
Monitor hemoglobin
Replete potassium
Assessment / Plan
Assessment / Plan
Elective robotic sigmoidectomy with takedown of colovesicular fistula
post op ileus slowly resolving, ricci continues to drain bloody urine; plan for stent conversion tomorrow or Sunday
now on LRD
Ricci catheter to continue
Hyponatremia
Monitor
Anemia, suspect acute blood loss anemia from surgery
Monitor
Hypokalemia
Replete
Hx of alcohol use
pt states 2 Vodkas per day. Denies withdrawal symptoms, but drank regularly. No tremor or evidence of withdrawal currently
cw MSAS
Hx of cig smoking
reviewed importance of cessation
nicotine patch
full code
General: Well Developed, Well Nourished and No Apparent Distress
HEENT: Normocephalic, Atraumatic and Moist Mucous Membranes
Respiratory: Clear to Auscultation and Rhonchi (scattered upper airway rhonchi, clears with coughing); Negative Wheezes or Rales
Cardiac: Regular Rhythm and S1/S2
GI: Soft and Distended; Negative Normal Bowel Sounds (significant increase past 24 hrs)
Genito-urinary: Ricci
Musculoskeletal: No Clubbing, No Cyanosis and No Edema
Neuro: Awake, Alert and Oriented
Anticipated Discharge: 24 - 48 hours
Subjective/Interval History
-
Date of Service: September 17, 2023
denies pain
Objective Data
-
Labs:
Laboratory Results
09/17/23
09:15
WBC 8.3
Hgb 8.4 L
Hct 24.5 L
Plt Count 269 D
Sodium 129 L
Potassium 3.1 L
Chloride 99
Carbon Dioxide 31 H
BUN 8 L
Creatinine 0.5 L
Glucose 146 H
Calcium 7.9 L
Vital Signs:
Vital Signs
Temp Pulse Resp BP Pulse Ox
99.2 F 77 18 126/85 95
09/17/23 11:30 09/17/23 10:00 09/17/23 10:00 09/17/23 10:00 09/17/23 09:24
I&O
09/16/23 09/17/23 09/18/23
06:59 06:59 06:59
Intake Total 4200 / 4200 3080 / 3080 120 / 120
Output Total 4435 / 4435 1940 / 1940 400 / 400
Balance -235 / -235 1140 / 1140 -280 / -280
[2023-09-17] MEDS: KCL 40 MEQ PO (13:25)
--- NOTE | 2023-09-17 14:41 | PTCARENOTE ---
Report given to SARAVANAN PLASCENCIA for transfer to room 2100. Report included maykel drain, ricci with external stents. No shower allowed. Pain management. Patient made aware of plan of care. Belongings to be sent with patient.
--- NOTE | 2023-09-17 15:07 | CON.CAR ---
Addendum entered and electronically signed by Navjot Cárdenas MD 09/17/23 16:25:
Attending addendum: A code 9 was called after the patient was found lying backward with eyes rolled back in his head. He was unresponsive. He was found to be profoundly hypotensive. When cardiology arrived at the bedside the patient was found to
be awake but complaining of abdominal discomfort. He was found to have a systolic blood pressure in the low 60s. A pulse was present throughout the evaluation and the patient was awake and interactive even when complaining of abdominal discomfort.
He received a IV bolus of 500 mL of normal saline with gradual improvement in his blood pressures. He continued to complain of abdominal discomfort and asked to sit forward to take pressure off of his belly.
ECG: Sinus tachycardia with no acute ST or T-segment changes
Bedside echocardiogram: Hyperdynamic LV with no regional wall motion abnormalities obvious on the limited views obtained
GEN: Frail gentleman who is seen lying in bed complaining of abdominal discomfort. He appears ill but is interactive and never lost his pulse
HEENT: NC/AT, sclera are anicteric. Hearing is normal
LUNGS: Clear in the anterior lateral lung yoder bilaterally
CV: Tachycardic RRR No murmur noted
ABD : Post op laparoscopic incisions. Healing. No erythema. The belly is mildly tender to palpation. No guarding. Bowel sounds are absent. (he reported passing flatus earlier in the day)
EXT: No CCE
NEURO: No focal neurologic deficits
IMPRESSION:
-Post op hypotension / unresponsive episode
-s/p robotic sigmoidectomy and partial small bowel resection for colovesical fistula 09/13/23
-Post-op ileus
-Blood loss anemia
-h/o abnormal ECG
-Hyponatremia
-
RECOMMENDATIONS:
-Awaiting Code 9 blood work
-I personally reviewed ECG and Echocardiographic images
-I saw and examined patient during evaluation and treatment of hypotensive episode
-Currently, pressures seem to be improving with IV hydration with a hyperdynamic LV. Seems to be responding to fluids
-Repeat H/H in a few hours. His blood work was obtained before we started IV hydration
-Potentially may need pressor support
-Primary service should be made aware of events
-Critial Care Time 75 minutes
Original Note:
Consultation
Consultation Request
Date/Time Consultation Requested: 09/17/23
Date/Time Consultation Performed: 09/17/23
Requesting Provider:
Performing Provider: Dr. Gill
Reason for Consultation: Loss of consciousness
Medical History
-
History of Present Illness:
Patient found by nursing slumped over the side of his bed unresponsive, he was hypotensive and diaphoretic. No CPR was performed. Patient was returned to supine position in bed and regained consciousness. Patient was given IVFs for hypotension.
Patient was not on tele at the time of this event as he had been transitioned to med/surg level of care and was moments away from being transferred off of IMU when this happened. No h/o similar previous episodes. Patient was seen by cardiology for
preadmission cardiovascular risk stratification for an abnormal ECG 09/06/23. Patient was ordered an echo that was completed 09/07/23 and showed a normal EF. 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
chest pain or SOB.
PMH:
h/o abnormal ECG
Hyponatremia
Past Medical History
Past Medical History: Other (in HPI)
Past Surgical History: Bowel Resection (robotic sigmoidectomy 09/14/23)
Social History
Tobacco: Smoker
Alcohol: Other (2-3 times a week)
Drug: None
Family History
Family History: Reviewed & Not Pertinent
Allergies / Home Medications
Allergy/AdvReac Type Severity Reaction Status Date / Time
lisinopril Allergy Swelling/face Verified 09/13/23 06:16
swelling
Medication Instructions Recorded Confirmed Type
hydrocodone 5 mg-acetaminophen 325 1 tab PO Q4H PRN moderate pain 04/13/23 09/13/23 History
mg tablet
oxycodone 5 mg tablet 5 mg PO Q6H PRN pain 09/07/23 09/13/23 History
Balance Of Nature 2 cap PO DAILY Supplement 09/13/23 09/13/23 History
sodium sul 1.479 gram-potas ch 0 tab PO PER PKG DIR Supplement 09/13/23 09/13/23 History
0.188 gram-magnes sul 0.225 gram
tablet (Sutab)
Review of Systems
-
History Source: Patient
All other systems: Negative unless noted
Physical Exam
Vital Signs
Temp Pulse Resp BP Pulse Ox
99.2 F 77 18 126/85 95
09/17/23 11:30 09/17/23 10:00 09/17/23 10:00 09/17/23 10:00 09/17/23 09:24
GEN: NAD. AAOx3
HEENT: EOMI, MMM
LUNGS: Clear anterolaterally without wheeze
CV: Reg, S1/S2, no murmur
ABD: soft, BS+, NT, ND
EXT: No clubbing, cyanosis, lesions or edema B/L
NEURO: Gross non-focal
SKIN: Warm, dry and pink. No rash
Lab Results
09/17/23 09:15
09/17/23 09:15
Impression / Plan
-
PCP: Dr. Donaldson
Cardiology: Dr. Gill, seen pre-op 09/06/23
Impression:
Episode of unresponsiveness
s/p robotic sigmoidectomy and partial small bowel resection for colovesical fistula 09/13/23
Post-op ileus
Blood loss anemia
h/o abnormal ECG
Hyponatremia
Echo 09/07/23: EF 60-65%, trace MR
Echo 09/17/23: EF 70%, normal wall motion
Plan:
-Patient found by nursing slumped over the side of his bed unresponsive, he was hypotensive and diaphoretic. No CPR was performed. Patient was returned to supine position in bed and regained consciousness. Patient was given IVFs for hypotension.
Patient was not on tele at the time of this event as he had been transitioned to med/surg level of care and was moments away from being transferred off of IMU when this happened. No h/o similar previous episodes. Patient was seen by cardiology for
preadmission cardiovascular risk stratification for an abnormal ECG 09/06/23. Patient was ordered an echo that was completed 09/07/23 and showed a normal EF. 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
chest pain or SOB.
-Urgent bedside echo ordered and completed during this acute event. Echo reviewed bedside and showed preserved EF without obvious WMA.
-Urgent bedside ECG reviewed by me showed NSR without acute ischemic changes.
-Agree with IVFs.
-Patient was not on tele at the time and by report he had a pulse throughout this event. Recommend tele monitoring. No CPR performed.
-Repeat labs pending and patient is being considered for transfusion
--- NOTE | 2023-09-17 15:13 | PTCARENOTE ---
Patient found laying sideways in bed with eyes rolled back, diaphoretic. Code called. Blood pressure 60/48, IV bolus administered , ACU CHECK 169. Patient woke up during the code response and was able to communicate how he feels. Labs completed,
stat echo done. Blood pressure is now 91/60.
[2023-09-17 15:16] LABS: Glucose - Point of Care 169 mg/dl (70-99)
[2023-09-17 15:35] LABS: Hematocrit 24.7 % (39.0-52.0); Hemoglobin 8.6 g/dL (13.0-18.0); Mean Corp Hgb Conc. 34.8 g/dL (33.0-37.0); Mean Corpuscular Hgb 34.1 pg (27.0-31.0); Platelet Count 302 10^3/uL (130-400); Red Blood Cell Count 2.52 10^6/uL (4.70-6.10); Red Cell Dist. Width 13.4 % (11.5-14.5); White Blood Cell Count 6.2 10^3/uL (4.8-10.8)
[2023-09-17 15:39] LABS: INR 0.98; PT 13.2 Sec (11.4-14.6)
[2023-09-17 15:40] LABS: APTT 32.1 Sec (23.4-35.0)
[2023-09-17 16:00] LABS: ALT (SGPT) 17 U/L (0-50); AST (SGOT) 27 U/L (17-59); Albumin 2.8 g/dl (3.5-5.0); Alkaline Phosphatase 45 U/L (38-126); Blood Urea Nitrogen 8 mg/dl (9-20); Calcium 8.3 mg/dl (8.4-10.2); Carbon Dioxide 28 mmol/L (22-30); Chloride 99 mmol/L (98-107); Estimated Creatinine Clearance > 125 ml/min; Glucose 128 mg/dl (70-99); Lactic Acid 2.6 mmol/L (0.7-2.0); Potassium 3.2 mmol/L (3.5-5.1); Sodium 129 mmol/L (135-145); Total Bilirubin 1.2 mg/dl (0.2-1.3); Total Protein 5.1 g/dl (6.3-8.2); eGFR > 60.00
--- NOTE | 2023-09-17 16:10 | W.PN.UPDATE ---
Update Note
Progress Note Update
Patient found by nursing slumped over the side of his bed unresponsive, he was hypotensive and diaphoretic. Initially fluids was started. Urgent bedside echo with preserved EF. Patient initially responded to fluids however was hypotensive again.
Later on patient had a black bowel movement. Colorectal surgery was notified. NPO. IV PPI. Given persistent hypotension and black bowel movement, will start the patient on Levophed and will transfer to ICU. colorectal surgery aware and at
bedside. Further imaging per colo rectal. trend lactate
[2023-09-17 16:11] LABS: Troponin I < 0.012 ng/ml
[2023-09-17] MEDS: NSS 1000 IV (16:11)
--- NOTE | 2023-09-17 16:11 | CON.INTV ---
Consultation
Consultation Request
Date/Time Consultation Requested: 09-17-23
Date/Time Consultation Performed: 09-17-23
Requesting Provider: Hospitalist
Performing Provider: Dr Andujar
Reason for Consultation: hypotension
Medical History
-
Chief Complaint: hypotension
History of Present Illness:
Mr Hipolito Martínez is a 62/M adm 09-13 after planned robotic sigmoidectomy with take down of colovesical fistula with reported distal L ureteral injury (received intraop primary repair by Urology).
Doing well postop, seen earlier today by CRS, advancing to low residue, urology also following and planning exchange of L ureteral stent for internal JJ.
On afternoon 09-17 he was found slumped over side of bed, unresponsive, hypotensive, diaphoretic, regained consciousness upon being returned to supine position, as was about to be transferred to [facility] he did not have telemetry monitoring on,
started on IVFs, Cards consulted, TTE with normal LVEF and NWMAs (had normal TTE 09-07)
Labs noted progressive drop of Hgb from 13 to 8.6, mild progressive hyponatremia, mild hypokalemia, mildly elevated LA
Seen at ICU, awake, in no resp distress, reports mild postop pain which is improving. Reports dark bloody stool on 09-16 and melenotic stools 09-17. Reports past out while sitting in bed at time of events
Past Medical History
Past Medical History: Other (see A& for PMH/PSH)
Social History
Tobacco: Smoker
Alcohol: Daily
Drug: None
Family History
Family History: Reviewed & Not Pertinent
Allergies / Home Medications
Allergies
Allergy/AdvReac Type Severity Reaction Status Date / Time
lisinopril Allergy Swelling/face Verified 09/13/23 06:16
swelling
Home Medications
Medication Instructions Recorded Confirmed Last Taken Type
hydrocodone 5 mg-acetaminophen 325 1 tab PO Q4H PRN moderate pain 04/13/23 09/13/23 09/12/23 03:00 History
mg tablet
oxycodone 5 mg tablet 5 mg PO Q6H PRN pain 09/07/23 09/13/23 09/11/23 History
Balance Of Nature 2 cap PO DAILY Supplement 09/13/23 09/13/23 09/12/23 History
sodium sul 1.479 gram-potas ch 0 tab PO PER PKG DIR Supplement 09/13/23 09/13/23 09/12/23 22:00 History
0.188 gram-magnes sul 0.225 gram
tablet (Sutab)
Review of Systems
-
History Source: Patient
All other systems: Negative unless noted
Constitutional: Fatigue
Abdomen/GI: Abdominal Pain, Bloody Stools and Black Stools
Vitals / Labs / Diagnostic Testing
Vital Signs
Temp Pulse Resp BP Pulse Ox
99.2 F 108 20 69/49 95
09/17/23 11:30 09/17/23 15:35 09/17/23 15:35 09/17/23 15:35 09/17/23 15:32
Lab Data
09/17/23 15:05
09/17/23 15:05
Laboratory Results
09/17/23
15:05
PT 13.2
INR 0.98
APTT 32.1
Diagnostic Testing:
Physical Exam
-
HEENT: Normocephalic and Moist Mucous Membranes
Cardiovascular: Regular Rhythm, Murmur (n), Peripheral Edema (n) and JVD
Respiratory: Clear
GI: Distended and Tender
Neurology: Awake, Oriented and No Motor Deficits
Skin: Dry
General: Respiratory Distress (n)
Assessment
-
Assessment:
Mr Hipolito Martínez is a 62/M adm 09-13 after planned robotic sigmoidectomy with take down of colovesical fistula with reported distal L ureteral injury (received intraop primary repair by Urology). Doing well postop, seen earlier today by CRS,
advancing to low residue, urology also following and planning exchange of L ureteral stent for internal JJ.
On afternoon 09-17 he was found slumped over side of bed, unresponsive, hypotensive, diaphoretic, regained consciousness upon being returned to supine position, as was about to be transferred to [facility] he did not have telemetry monitoring on,
started on IVFs, Cards consulted, TTE with normal LVEF and NWMAs (had normal TTE 09-07)
Labs noted progressive drop of Hgb from 13 to 8.6, mild progressive hyponatremia, mild hypokalemia, mildly elevated LA
Seen at ICU, awake, in no resp distress, reports mild postop pain which is improving. Reports dark bloody stool on 09-16 and melenotic stools 09-17. Reports past out while sitting in bed at time of events
Impression:
Transient unresponsiveness
Suspected syncope secondary to acute moderate anemia
Progressive drop in Hgb from 13 on adm to 8.6
Dark bloody stools 09-16
Melenotic stools 09-17
Hypotension, tachycardia
Requiring new onset NE and IVF resuscitation
Hyperdynamic LV on TTE 09-17
Mild progressive hyponatremia
Mild hypokalemia
Mildly elevated LA
Planned robotic sigmoidectomy with take down of colovesical fistula with reported distal L ureteral injury (received intraop primary repair by Urology): 09-13
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
Smoker
ETOH use
Plan:
O2 protocol as needed
Currently on RA, POx 95%, in no resp distress
Transient unresponsiveness 09-17
Suspected syncope secondary to acute moderate anemia
Progressive drop in Hgb from 13 on adm to 8.6
Dark bloody stools 09-16
Melenotic stools 09-17
Hypotension, tachycardia
Requiring new onset NE and IVF resuscitation
Hyperdynamic LV on TTE 09-17
Continue IVF resuscitation
Continue low dose NE, change to neosynephrine if tachycardia continues
2U PBRCs and CT abd/p c/c this afternoon as d/c surgery
CRS following case closely
Keep NPO x meds for now
Continue ertapenem, postop atb
SCDs
PPI IV bid
Monitor for DTs
NRT
D/w Mr Lange at ICU
Critical care time: 40 min
Diagnostic tests:
TTE 09-17-23
CONCLUSIONS
Limited 2D echo for eval of EF.
Normal left ventricular chamber size. Hyperdynamic left ventricular systolic function. Left ventricular ejection fraction is 70-75%. Normal regional wall motion.
Normal pericardium without effusion. No pleural effusion present.
Compared to the previous echo from Sep 07 2023, EF was 60-65% at that time.
--- NOTE | 2023-09-17 16:24 | PTCARENOTE ---
Levophed started due to hypotension, 1000ml bolus administered. Patient had a large maroon/ dark green, heme positive stool during this event. Patient transferred to ICU, report given to Ines PLASCENCIA. Paige at bedside and was educated about plan of
care.
--- NOTE | 2023-09-17 17:00 | CM ---
Patient who is s/p robotic sigmoidectomy and takedown colovesical fistula, Morgan catheter along with ureteral stent and ureteral ICG. Plan stent exchange in OR. IDA drain. Receiving IV Ertapenum.
Code called by nurse for episode unresponsiveness, hypotension, diaphoresis, heme positive stool. Patient transferred to ICU. Levophed gtt started. updated by nurse.
CM continuing to follow for d/c needs.
Plan offer VN if patient goes home with IDA drain.
Plan probable home.
--- NOTE | 2023-09-17 18:23 | W.PN.UPDATE ---
Update Note
Progress Note Update
Events of today noted. Patient was apparently doing well until this afternoon when he became acutely nonresponsive, tachycardic, and hypotensive. A code was called. My partner, Dr. Duron evaluated the patient soon thereafter. By that point the
patient was alert. Blood work drawn at that time revealed a normal white count and a somewhat diminished hemoglobin of 8.6. His lactate was elevated at 2.6. He has been afebrile. He has subsequently been transferred to the ICU and is undergoing
IV fluid resuscitation and a blood transfusion. He is on pressors. On my own evaluation at 5:30 PM he was alert and verbal. Abdominal exam revealed moderate distention with mild tenderness. Incisions look okay. IDA with sanguinous fluid but not
much in the bulb. He has been passing dark-colored liquid stool transanally. Etiology of his circumstances unclear. This may be hemorrhagic shock although septic shock possible. He is already empirically on Invanz. A CT angio of the chest
abdomen pelvis has been ordered to rule out PE and evaluate for active bleeding. I updated the patient's , Paige, via telephone.
--- NOTE | 2023-09-17 18:34 | PTCARENOTE ---
1620-Received pt from IMU via bed.Pt is awake,alert.oriented x 3.+CERNA Pt assists with repositioning.Denies pain at this time.ST noted.PRBC transfusing at this time.Levo at 6 mcg.Decreased breath sounds throughout.+tachypnea,denies SOB.NPO.No nausea
or emesis.Large liquid green,black stool x 3.FIB applied.Morgan intact with external stents,draining radha blood tinged urine.Right abdominal incision intact with glue.CT abdomen ordered as per MD.Plan of care discussed with pt.
--- NOTE | 2023-09-17 19:08 | W.PN.UPDATE ---
Update Note
Progress Note Update
Patient checked on again. Nursing brought it to my attention that the liquid stool the patient is producing although dark is actually bilious rather than melanotic. On my own inspection, I agree and there is no odor of melena. Also patient is not
dyspneic or hypoxic making PE less likely. Given these findings, I am more concerned about anastomotic or bowel leak. CT order modified to (water soluble) po, rectal, and IV contrast. Patient and nursing aware.
--- NOTE | 2023-09-17 20:00 | PTCARENOTE ---
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 RA IV x 2, LA IV x 2- WNL, Levo gtt infusing per work list, 2nd unit PRBC continues to infuse. Morgan catheter w/external stents draining radha urine. POC discussed with pt- awaiting
po contrast for CT abd. call cohn with patient.
[2023-09-17] MEDS: OMNIPAQUE 50 ML PO (20:18)
[2023-09-17 20:47] LABS: Hematocrit 22.4 % (39.0-52.0); Hemoglobin 7.8 g/dL (13.0-18.0)
[2023-09-17] MEDS: ENTEREG PO (20:49)
[2023-09-17 20:59] LABS: Lactic Acid 1.2 mmol/L (0.7-2.0)
[2023-09-17] MEDS: PROTONIX IV 40 MG IV (21:49)
[2023-09-17] MEDS: NSS (PRESERVATIVE FREE) 10 ML IV (21:49)
[2023-09-17] MEDS: FLOMAX PO (21:49)
--- NOTE | 2023-09-17 22:30 | PTCARENOTE ---
pt to CT abd after po contrast, to receive IV and rectal contrast in CT scan prior to study.
[2023-09-17] MEDS: DILAUDID 0.5 MG IV (23:50)
[2023-09-18] VITALS (27 sets, daily range): BP systolic 107–158; BP diastolic 69–112; BMI 27.1
--- NOTE | 2023-09-18 00:19 | W.PN.UPDATE ---
Update Note
Progress Note Update
CT scan images reviewed and received assessment of Kyaw. No evidence for anastomotic leak or bowel leak. Moderate hemoperitoneum noted--acuity unclear. Most recent Hg down to 7.8 after a unit of PRBCs. I conclude that the
hypotension/tachycardia was due to intraperitoneal bleeding. Now on his second unit of blood and a third unit ordered in addition. Patient assessed now at bedside and discussed with nursing. Abdominal exam unchanged. Still moderate distension
and minimally tender. Weaning off Levophed. HR low 100s. BP 120s systolic. Hopefully bleeding has quelled. Patient's main complaint is thirst. Ice chips and small sips H20. For now will continue supportive care. Updated patient's via
message.
--- NOTE | 2023-09-18 01:00 | PTCARENOTE ---
Dr Ortiz recently at bedside to discuss CT scan results with pt, ordered 3rd unit of PRBC. blood bank called asking if H&H could be sent first due to only 2u O neg blood available in hospital. Dr Duron innovation manager for Colorectal sx-- tiger texted-
says ok to send H&H first, transfuse if hgb < 8 per MD.
[2023-09-18 01:23] LABS: Hematocrit 23.7 % (39.0-52.0); Hemoglobin 8.6 g/dL (13.0-18.0)
[2023-09-18] MEDS: TYLENOL PO ×4 (03:35→23:56)
[2023-09-18] MEDS: DILAUDID 0.5 MG IV ×3 (04:02→19:39)
[2023-09-18 04:24] LABS: % Basophils 0.3 % (0-2); % Eosinophils 2.4 % (0-6); % Immature Granulocytes 1.2 % (0-0.5); % Lymphocytes 6.1 % (20.5-51.1); % Monocytes 14.6 % (1.7-9.3); % Neutrophils 75.4 % (42.2-75.2); Absolute Eosinophils 0.3 10^3/uL (0-0.7); Absolute Immature Granulocytes 0.2 10^3/uL (0-0.05); Absolute Lymphocytes 0.8 10^3/uL (1.2-3.4); Absolute Monocytes 1.8 10^3/uL (0.1-0.6); Absolute Neutrophils 9.3 10^3/uL (1.4-6.5); Hematocrit 23.2 % (39.0-52.0); Hemoglobin 8.4 g/dL (13.0-18.0); Mean Corp Hgb Conc. 36.2 g/dL (33.0-37.0); Mean Corpuscular Hgb 33.1 pg (27.0-31.0); Mean Corpuscular Volume 91.3 fL (80.0-94.0); Mean Platelet Volume 9.8 fL (7.4-10.4); Nucleated Red Blood Cells % 0 % (-); Platelet Count 271 10^3/uL (130-400); Red Blood Cell Count 2.54 10^6/uL (4.70-6.10); Red Cell Dist. Width 15.8 % (11.5-14.5); White Blood Cell Count 12.3 10^3/uL (4.8-10.8)
[2023-09-18 04:30] LABS: PT 13.4 Sec (11.4-14.6)
[2023-09-18] MEDS: LR 1000 IV (04:33)
--- NOTE | 2023-09-18 04:35 | PTCARENOTE ---
UO 25cc/hr x 4 hrs- BDougherty aware, LR @ 50cc/hr ordered. pt continues to be fidgety, c/o R hip pain, prn dilaudid per OCT. no further changes in assessment.
[2023-09-18 04:49] LABS: Blood Urea Nitrogen 16 mg/dl (9-20); Calcium 7.8 mg/dl (8.4-10.2); Carbon Dioxide 22 mmol/L (22-30); Chloride 97 mmol/L (98-107); Estimated Creatinine Clearance 115 ml/min; Glucose 159 mg/dl (70-99); Sodium 129 mmol/L (135-145); eGFR > 60.00
--- NOTE | 2023-09-18 07:30 | W.PN.INTV ---
Today's Communication / Plan
Recommendations
H/H
Pain mgmt
Atb
CRS follow up
Assessment
-
Assessment:
Mr Hipolito Martínez is a 62/M adm 09-13 after planned robotic sigmoidectomy with take down of colovesical fistula with reported distal L ureteral injury (received intraop primary repair by Urology). Doing well postop, seen earlier today by CRS,
advancing to low residue, urology also following and planning exchange of L ureteral stent for internal JJ.
On afternoon 09-17 he was found slumped over side of bed, unresponsive, hypotensive, diaphoretic, regained consciousness upon being returned to supine position, as was about to be transferred to [facility] he did not have telemetry monitoring on,
started on IVFs, Cards consulted, TTE with normal LVEF and NWMAs (had normal TTE 09-07)
Labs noted progressive drop of Hgb from 13 to 8.6, mild progressive hyponatremia, mild hypokalemia, mildly elevated LA
Seen at ICU, awake, in no resp distress, reports mild postop pain which is improving. Reports dark bloody stool on 09-16 and melenotic stools 09-17. Reports past out while sitting in bed at time of events
Impression:
Transient unresponsiveness
Suspected syncope secondary to acute moderate anemia
Progressive drop in Hgb from 13 on adm to 8.6
Dark bloody stools 09-16
CT abd/p 09-17: hemoperitoneum
Hypotension, tachycardia
Requiring new onset NE and IVF resuscitation
Hyperdynamic LV on TTE 09-17
Mild progressive hyponatremia
Mild hypokalemia
Mildly elevated LA
Planned robotic sigmoidectomy with take down of colovesical fistula with reported distal L ureteral injury (received intraop primary repair by Urology): 09-13
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
Smoker
ETOH use
R hip replacement
Plan:
O2 protocol as needed
Currently on RA, POx 95%, in no resp distress
Transient unresponsiveness 09-17
Suspected syncope secondary to acute moderate anemia
Progressive drop in Hgb from 13 on adm to 8.6-7.8 on 09-17
Dark bloody stools 09-16
CT abd/p 09-17: hemoperitoneum
Hypotension, tachycardia
Required new onset NE (low dose, then off as of 11 pm last night), and IVF resuscitation (LR 2L)
Hyperdynamic LV on TTE 09-17
2U PBRCs transfused: hgb 8.4 on 09-18 early am, monitor
CT abd/p c/c showed moderate hemoperitoneum
CRS following case closely
Keep NPO
Pain mgmt
Demand related ^trop, seen by Cards, no intervention currently warranted
Continue ertapenem, postop atb
For internalization of L ureteral stent once stable, urology following
SCDs
PPI IV bid
Monitor for DTs
NRT
D/w MDT
D/w Mr Lange
Critical care time: 35 min
Diagnostic tests:
TTE 09-17-23
CONCLUSIONS
Limited 2D echo for eval of EF.
Normal left ventricular chamber size. Hyperdynamic left ventricular systolic function. Left ventricular ejection fraction is 70-75%. Normal regional wall motion.
Normal pericardium without effusion. No pleural effusion present.
Compared to the previous echo from Sep 07 2023, EF was 60-65% at that time.
Subjective Dataa
Subjective Data
Date of Service:
Date of Service: September 18, 2023
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
Subjective:
Events noted, CT of the abdomen showed hemoperitoneum
Received 2 units of packed red blood cells yesterday, hemoglobin dropped down to 7.8 improved at 8.4 this morning
Sitting in chair, denies major complaints except for mild abdominal pain
Review of Systems
General: Fever (n), Sweats (n) and Chills (n)
HEENT: Epistaxis (n)
Cardiopulmonary: Dyspnea, Cough (n) and Chest Pain
GI: Abdominal Pain (mild), Nausea (n) and Vomiting (n)
Neuro: Weakness
Objective Data
Data Reviewed
Vital Signs / I&O / Oxygen:
Vital Signs
Temp Pulse Resp BP Pulse Ox
98.3 F 108 17 152/98 97
09/18/23 04:10 09/18/23 06:15 09/18/23 06:15 09/18/23 05:18 09/18/23 05:45
Intake and Output
09/17/23 09/18/23 09/19/23
06:59 06:59 06:59
Intake Total 3080 / 3080 3931.5 / 3931.5
Output Total 1940 / 1940 1360 / 1360
Balance 1140 / 1140 2571.5 / 2571.5
SaO2 97
Nasal Cannula flow liters per 2
minute
Physical Exam
General: Comfortable
HEENT: Normocephalic and Moist Mucous Membranes
Cardiovascular: Regular Rhythm, Murmur (n), Peripheral Edema (n) and Calf Tenderness (n)
Respiratory: Clear, Non-Labored Respirations and Stridor (n)
GI: Soft, Distended and Tender (mild )
Neurology: Awake, AO x 3 and No Motor Deficits
Skin: Dry
Labs/Micro/Reports
Lab Data
09/18/23 04:03
09/18/23 04:03
Laboratory Results
09/17/23 09/18/23
15:05 04:03
PT 13.2 13.4
INR 0.98 1.00
APTT 32.1 30.0
--- NOTE | 2023-09-18 08:00 | W.PN.URO.CBU ---
Today's Communication / Plan
-
though patient is currently on tomorrow's OR schedule to internalize left ureteral stent, he currently appears too unstable; therefore, trip to OR likely will be deferred to or Sunday
Assessment / Plan
-
s/p colectomy with takedown of colo-ves fistula and repair of left ureteral injury
pt has ricci and bilateral open ended stents in place
clinically unstable
Diagnosis
-
Date of Service: September 18, 2023
-
Patient Diagnosis:
s/p colectomy with repair of colo-ves fistula and repair of left ureteral injury
Post Op Day:
09/13/23
Subjective
-
tired
Objective
-
Vital Signs
Temp Pulse Resp BP Pulse Ox
98.3 F 88 21 152/98 94
09/18/23 04:10 09/18/23 07:30 09/18/23 07:30 09/18/23 05:18 09/18/23 06:45
Intake and Output
09/17/23 09/18/23 09/19/23
06:59 06:59 06:59
Intake Total 3080 / 3080 3931.5 / 3981.5 50 / 50
Output Total 1940 / 1940 1360 / 1360
Balance 1140 / 1140 2571.5 / 2621.5 50 / 50
Intake:
Oral fluids 1320 / 1320 1200 / 1200
IV fluids (Total) 1760 / 1760 1231.5 / 1281.5 50 / 50
Levophed 106.5 / 106.5
Lr 1,000 ml @ 50 mls/hr IV . 125 / 175 50 / 50
Q20H KARELY Rx#:[id number]
NSS 1000 / 1000
IV piggybacks 1000 / 1000
Blood Product Amount Infused ( 500 / 500
mL)
Packed Rbc Leukoreduced Unit 250 / 250
[id number]
Packed Rbc Leukoreduced Unit 250 / 250
[id number]
Output:
Drain Output (Total) 50 / 50
Right Lower Abdomen Jose G- 50 / 50
Mcdaniel
Urine, Ricci 1850 / 1850 1310 / 1310
Laboratory Results
09/18/23 04:03
09/18/23 04:03
Physical Exam
-
Ricci with bilateral ureteral catheters to common drainage
[2023-09-18] MEDS: NSS (PRESERVATIVE FREE) 10 ML IV ×2 (08:08→19:38)
[2023-09-18] MEDS: ENTEREG PO (08:08)
[2023-09-18] MEDS: FOLVITE PO (08:08)
[2023-09-18] MEDS: INVANZ 60 MG IV (08:08)
[2023-09-18] MEDS: PROTONIX IV 40 MG IV ×2 (08:09→19:38)
[2023-09-18] MEDS: NICODERM TRANSDERMAL 14 MG TRANSDERM (08:09)
--- NOTE | 2023-09-18 08:44 | W.PN.CARDCBS ---
Today's Communication / Plan
-
Stable cardiac status
Start aspirin 81 mg a day
We will arrange for cardiac follow-up given troponin of 0.1 and coronary artery calcification on CT scan
We will sign off, please call if questions
Impression / Plan
-
PCP: Dr. Donaldson
Cardiology: Dr. Gill, seen pre-op 09/06/23
Impression:
Episode of unresponsiveness, probably hypotensive related to recent surgery/possible intra peritoneal bleed.
s/p robotic sigmoidectomy and partial small bowel resection for colovesical fistula 09/13/23
Post-op ileus
Blood loss anemia
h/o abnormal ECG
Hyponatremia
Echo 09/07/23: EF 60-65%, trace MR
Echo 09/17/23: EF 70%, normal wall motion
Plan:
From a cardiac standpoint he is doing well despite the fact that he has a detectable troponin of approximately 0.1 following his episode yesterday, which was likely hypotensive with intra-abdominal bleeding per colorectal surgery.
His EKG is normal.
Given troponin of 0.1 and coronary artery calcification seen on CT scan, for the present I would favor starting aspirin 81 mg a day when acceptable from a surgical standpoint.
Defer to hospitalist regarding hyponatremia.
Of interest, he has fairly dense LAD and circumflex coronary artery calcifications seen on his abdominal and pelvic CT scan. He also has aortic atherosclerosis. None of this is terribly surprising given his history. However, when he is clinically
stable he should probably have an elective stress test given the density of his calcification, and should be on statin therapy with smoking cessation, antihypertensive therapy if needed, etc.
We would arrange cardiac follow-up
Otherwise, we will sign off. Please call if questions.
Clinical summary: 62-year-old man with robotic sigmoidectomy and partial small bowel was suction for colovesicular fistula 09/13/2023, on 129/24 patient found by nursing slumped over the side of his bed unresponsive, he was hypotensive and
diaphoretic. No CPR was performed. Patient was returned to supine position in bed and regained consciousness. Patient was given IVFs for hypotension. Patient was not on tele at the time of this event as he had been transitioned to med/surg level of
care and was moments away from being transferred off of IMU when this happened. No h/o similar previous episodes. Patient was seen by cardiology for preadmission cardiovascular risk stratification for an abnormal ECG 09/06/23. Patient was ordered an
echo that was completed 09/07/23 and showed a normal EF. 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
Subjective
Date of Service: September 18, 2023:
He now feels well. Ambulating in bathroom.
Medications: ertapenem, Entereg, tamsulosin 0.4 mg a day, nicotine patch, pantoprazole
PMH/PSH/SH/FH: Reviewed
Allergies: Lisinopril, angioedema
Outpatient meds reviewed
Review of systems negative except as above
152/98, 128/79, pulse 80s, respiratory 21, afebrile, sats 94%, intake and output +2.6 L
Weight is 89.3 kg, up 1.[address] 09/17/2023: Moderate hemoperitoneum, 8 cm, no extravasation, bilateral ureteral stents, small effusions, atherosclerosis
Hemoglobin 8.4, had been 9.3 on the , otherwise stable
Sodium 129, potassium 4, BUN and creatinine 16 and 0.7
Troponin undetectable yesterday ECG sinus tachycardia
Objective
Labs:
09/18/23 04:03
09/18/23 04:03
Labs
Hgb 8.4 g/dL (13.0-18.0) L 09/18/23 04:03
Hgb Cancelled 09/18/23 04:03
Hct 23.2 % (39.0-52.0) L 09/18/23 04:03
Hct Cancelled 09/18/23 04:03
Plt Count 271 10^3/uL (130-400) 09/18/23 04:03
PT 13.4 Sec (11.4-14.6) 09/18/23 04:03
INR 1.00 09/18/23 04:03
APTT 30.0 Sec (23.4-35.0) 09/18/23 04:03
Sodium 129 mmol/L (135-145) L 09/18/23 04:03
Potassium 4.0 mmol/L (3.5-5.1) 09/18/23 04:03
BUN 16 mg/dl (9-20) 09/18/23 04:03
Creatinine 0.7 mg/dL (0.7-1.3) 09/18/23 04:03
Glucose 159 mg/dl (70-99) H 09/18/23 04:03
Troponins
09/17/23
15:05
Troponin I < 0.012
Vital Signs and I&O:
Vital Signs
Temp Pulse Resp BP Pulse Ox
36.8 C 88 21 152/98 94
09/18/23 08:11 09/18/23 07:30 09/18/23 07:30 09/18/23 05:18 09/18/23 06:45
Vital Signs
Temp Pulse Resp BP Pulse Ox
36.8 C 88 21 152/98 94
09/18/23 08:11 09/18/23 07:30 09/18/23 07:30 09/18/23 05:18 09/18/23 06:45
Intake & Output
09/16/23 09/17/23 09/18/23 09/19/23
07:59 07:59 07:59 07:59
Intake Total 4200 / 4200 3080 / 3080 3981.5 / 3981.5
Output Total 3395 / 3395 1940 / 1940 1360 / 1360
Balance 805 / 805 1140 / 1140 2621.5 / 2621.5
Physical Exam
Physical Exam
No distress, walking to bathroom
Head neck exam unremarkable
Lungs are clear
Cardiac regular rate and rhythm without murmurs JVD okay
Abdomen dressing intact, mildly distended and tender
Extremities without clubbing cyanosis or edema
Neuro nonfocal
Musculoskeletal intact
[2023-09-18 09:53] LABS: Troponin I 0.104 ng/ml
--- NOTE | 2023-09-18 12:29 | W.PN.CRS1 ---
Addendum entered and electronically signed by Rui Ortiz MD 09/18/23 16:44:
Also of note, will continue empiric Invanz.
Addendum entered and electronically signed by Rui Ortiz MD 09/18/23 16:43:
I saw and examined the patient.
The PA's note was reviewed and I agree with the note.
Comment:
Patient seen in a.m. with PA.
Awake verbal and communicative. A few hiccups. Denies nausea.
Received 2 units of blood overnight.
Afebrile with borderline tachycardia and normotensive off pressors. Hemoglobin 8.4 this a.m. from 8.6 last evening.
Abdomen moderately distended with mild incisional tenderness.
Ricci catheter with reasonable amount of urine in it. Stent still in place. Urology input noted and appreciated.
Ice chips and sips for now.
Will check lower extremity ultrasound for DVT as he is at increased risk.
Continue ICU care.
Will recheck hemoglobin at 5 PM.
Patient's , Paige, updated via phone conversation.
Appreciate help of other services.
Original Note:
Today's Communication / Plan
-
continue npo
hold lovenox
LE U/S
continue invanz
trend hgb
Assessment/Plan
-
POD #5 �1) robotic sigmoidectomy 2) takedown colovesical fistula 3) takedown splenic flexure 4) partial small bowel resection 5) flexible sigmoidoscopy
Code called yesterday for hypotension and tachycardia with unresponsiveness, transferred to ICU on Levophed (now off) s/p [address] shows moderate hemoperitoneum including an 8 cm intermediate density (53 Hounsfield units) fluid collection
in the pelvic mesentery and moderate intermediate density fluid throughout the pelvis and left subdiaphragmatic region.
1.� Continue NPO with sips and chips today.
2.� Tachycardia resolved. Off of cindy gtt. BP maintaining.
3.� Ricci/stents per urology - will wait on stent/ricci exchange today given events from yesterday.
4.� OOB to chair.
5.� Hold Lovenox given anemia.� Continue TEDs/SCDs for DVT prophylaxis.
6.� Trend hemoglobin. 8.4 today s/p 2 units. No further transfusions at this time.
7.� Continue ICU level of care today.
8.� Continue IDA drain for now (bloody output).
9. Pain control: Tylenol standing, oxycodone po and Dilaudid IV for breakthrough pain.
10. Continue IV Invanz due to intraabdominal spillage.
11. U/S LEs to rule out dvt.
Subjective Data
Procedure
09/14/2023- 1) robotic sigmoidectomy 2) takedown colovesical fistula 3) takedown splenic flexure 4) partial small bowel resection 5) flexible sigmoidoscopy
Subjective Data
Date of Service: September 18, 2023
Patient states today he feels a little bloated. He has some hiccuping. He denies nausea or vomiting. He has no abdominal pain. He feels much better since the events of yesterday afternoon.
Objective Data
-
Vital Signs
Temp Pulse Resp BP Pulse Ox
98.4 F 108 16 133/81 94
09/18/23 11:22 09/18/23 09:46 09/18/23 09:46 09/18/23 09:00 09/18/23 06:45
Intake & Output
09/17/23 09/18/23 09/19/23
06:59 06:59 06:59
Intake Total 3080 / 3080 3931.5 / 3981.5 150 / 150
Output Total 1940 / 1940 1360 / 1360 110 / 110
Balance 1140 / 1140 2571.5 / 2621.5 40 / 40
Intake:
Oral fluids 1320 / 1320 1200 / 1200
IV fluids (Total) 1760 / 1760 1231.5 / 1281.5 150 / 150
Levophed 106.5 / 106.5
Lr 1,000 ml @ 50 mls/hr IV . 125 / 175 150 / 150
Q20H KARELY Rx#:[id number]
NSS 1000 / 1000
IV piggybacks 1000 / 1000
Blood Product Amount Infused ( 500 / 500
mL)
Packed Rbc Leukoreduced Unit 250 / 250
[id number]
Packed Rbc Leukoreduced Unit 250 / 250
[id number]
Output:
Drain Output (Total) 50 / 50
Right Lower Abdomen Jose G- 50 / 50
Mcdaniel
Urine, Ricci 1850 / 1850 1310 / 1310 110 / 110
Lab Results
09/18/23 04:03
09/18/23 04:03
Physical Exam
-
General: No Acute Distress and AOx3
Abdomen: Soft, Distended (slightly) and Non Tender
Skin: Warm and Dry
Incision: Clear, Dry, Intact
[2023-09-18] MEDS: TYLENOL 650 MG PO ×2 (12:35→19:38)
--- NOTE | 2023-09-18 12:41 | PTCARENOTE ---
One loose brown stool today. Incisions C/D/I. Minimal drainage from IDA. Pt reports pain is improved today. All other assessments unchanged.
--- NOTE | 2023-09-18 14:03 | W.PN.HOSP.TC ---
Today's Communication/Plan
-
monitor vitals
see plan
monitor hgb
PPI
NPO per CRS
cw IVF
monitor sodium; check urine and serum studies
Assessment / Plan
Assessment / Plan
Elective robotic sigmoidectomy with takedown of colovesicular fistula
Hemorrhagic shock
post op ileus slowly resolving, ricci continues to drain bloody urine; plan for stent conversion when ok with urology
09/17 Patient found by nursing slumped over the side of his bed unresponsive, he was hypotensive and diaphoretic.� Initially fluids was started.� Urgent bedside echo with preserved EF.� Patient initially responded to fluids however was hypotensive
again.� Later on patient had a black bowel movement.� Started on Levophed and was transferred to ICU.
CT scan consistent with moderate hemoperitoneum. s/p blood transfusion; monitor hgb
Ricci catheter to continue
now NPO
cw PPI
Hyponatremia
Monitor
hx of alcohol use
Check urine and serum studies
Anemia, suspect acute blood loss
CT scan with moderate hemoperitoneum
Colorectal surgery following
Monitor hemoglobin
Status post blood transfusion 09/17
Elevated troponin, likely non-[place] related to monitor
Cardiology follow
Hypokalemia
improved
Hx of alcohol use
pt states 2 Vodkas per day. Denies withdrawal symptoms, but drank regularly. No tremor or evidence of withdrawal currently
cw MSAS
Hx of cig smoking
reviewed importance of cessation
nicotine patch
full code
General: Well Developed, Well Nourished and No Apparent Distress
HEENT: Normocephalic, Atraumatic and Moist Mucous Membranes
Respiratory: Clear to Auscultation, no wheezing
Cardiac: Regular Rhythm and S1/S2
GI: Soft and Distended
Genito-urinary: Ricci
Musculoskeletal: No Clubbing, No Cyanosis and No Edema
Neuro: Awake, Alert and Oriented
I spent a total of 53 minutes with the patient or on the floor. More than 50% of this time involved counseling and coordination of care.
Anticipated Discharge: > 48 hours
Subjective/Interval History
-
Date of Service: September 18, 2023
denies pain
Objective Data
-
Labs:
Laboratory Results
09/18/23 09/18/23 09/18/23
04:03 04:03 04:03
WBC 12.3 H
Hgb 8.4 L Cancelled
Hct 23.2 L Cancelled
Plt Count 271
PT 13.4
INR 1.00
APTT 30.0
Sodium 129 L
Potassium 4.0
Chloride 97 L
Carbon Dioxide 22
BUN 16
Creatinine 0.7
Glucose 159 H
Calcium 7.8 L
Vital Signs:
Vital Signs
Temp Pulse Resp BP Pulse Ox
98.4 F 102 25 127/88 94
09/18/23 11:22 09/18/23 12:45 09/18/23 12:45 09/18/23 12:21 09/18/23 06:45
I&O
09/17/23 09/18/23 09/19/23
06:59 06:59 06:59
Intake Total 3080 / 3080 3931.5 / 3981.5 400 / 400
Output Total 1940 / 1940 1360 / 1360 110 / 110
Balance 1140 / 1140 2571.5 / 2621.5 290 / 290
--- NOTE | 2023-09-18 14:31 | CM ---
CM following re: discharge planning.
Discussed in rounds, reviewed pt's chart, met with pt. Per rounds meeting, pt is POD #5 �1) robotic sigmoidectomy with takedown of colovesicular fistula , continue supportive care. Per chart review, minimal drainage from IDA. Colorectal surgery
following.
Pt stated he feels that his admission tiana the hospital related to his significant h/o alcohol abuse. Pt reports he has gayla drinking for years, drink of choice - vodka and he has been drinking 2 big glasses of vodka daily. Pt reports he has never
been in an inpatient D&A rehab and per pt he actually always declined it. CM provided pt with [facility] information, pt expressed his agreement to meet with [facility] team. Pt reports he needs help. A referral to [facility] made, spoke to ISRAEL Mcdaniel and she
will meet with pt shortly. Pt expressed his great appreciation to offer meeting with [facility]
Pt reports he lives alone in a 2SH and was able to ambulate without any assistive devices. Pt reports his spouse lives separately and they are . Pt reports here he ambulates with a walker.
D/C plan: Home with VN for IDA drain. [facility] following.
CM will follow with discharge plan updates as hospitalization progresses
--- NOTE | 2023-09-18 17:34 | PTCARENOTE ---
5mg bloody drainage from IDA drain. Multiple small loose stools today. PRN Dilaudid given x 1 this shift. Urine output radha with some small blood clots and sediment noted. All other assessments unchanged.
[2023-09-18 18:21] LABS: Osmolality Serum 275 mOsm/kg (275-300)
[2023-09-18 18:51] LABS: Hemoglobin 7.5 g/dL (13.0-18.0)
[2023-09-18 18:54] LABS: Osmolality Urine 689 mOsm/kg (300-900)
[2023-09-18 19:23] LABS: Urine Sodium 16 mmol/L (30-90)
[2023-09-18] MEDS: ENTEREG 12 MG PO (19:38)
--- NOTE | 2023-09-18 20:44 | PTCARENOTE ---
Rec'd care of patient at 1920. Patient alert and oriented. Assisted oob to chair x1. NSR/ST on tele monitor. Rate in the 90-100's. Lung sounds shallow/diminished on RA. POX 96-97%. +BS x4 quadrants. Abdomen soft/distended/tender. Right IDA drain with
small amount of serosanguineous drainage. Lap sites x3 closed with surgical glue. Morgan draining radha urine. Stents in place. Vitals stable. Hgb level at 1830 resulted at 7.5. Discussed with Dr. Lance. Repeat Hgb to be checked at 0000. If lower,
transfuse.
[2023-09-18] MEDS: FLOMAX 0.400000000000000022 MG PO (21:00)
--- NOTE | 2023-09-18 23:53 | PTCARENOTE ---
No changes in assessment. Vitals stable. Repeat H&H pending.
[2023-09-19] VITALS (36 sets, daily range): BP systolic 106–157; BP diastolic 60–99; BMI 27.5
[2023-09-19] LABS: Hematocrit 18.9 % (39.0-52.0); Hemoglobin 6.7 g/dL (13.0-18.0)
--- NOTE | 2023-09-19 00:01 | PTCARENOTE ---
Hgb 6.7, Hct 18.9. [employer] notified. Order for 1 unit PRBCs placed.
[2023-09-19] MEDS: ROXICODONE 10 MG PO ×2 (00:26→21:49)
[2023-09-19] MEDS: LR 1000 IV ×2 (00:27→21:46)
--- NOTE | 2023-09-19 01:22 | PTCARENOTE ---
PRBCs transfusing. Patient resting comfortably. No s/s transfusion reaction. VSS.
[2023-09-19] MEDS: TYLENOL 650 MG PO ×2 (04:11→08:49)
--- NOTE | 2023-09-19 04:14 | PTCARENOTE ---
Assessment unchanged. VSS.
[2023-09-19 06:21] LABS: % Basophils 0.3 % (0-2); % Eosinophils 2.3 % (0-6); % Immature Granulocytes 1.9 % (0-0.5); % Lymphocytes 9.7 % (20.5-51.1); % Monocytes 16.5 % (1.7-9.3); % Neutrophils 69.3 % (42.2-75.2); Absolute Eosinophils 0.2 10^3/uL (0-0.7); Absolute Immature Granulocytes 0.2 10^3/uL (0-0.05); Absolute Lymphocytes 0.9 10^3/uL (1.2-3.4); Absolute Monocytes 1.6 10^3/uL (0.1-0.6); Absolute Neutrophils 6.6 10^3/uL (1.4-6.5); Hemoglobin 7.7 g/dL (13.0-18.0); Mean Corpuscular Hgb 32.4 pg (27.0-31.0); Mean Corpuscular Volume 92.4 fL (80.0-94.0); Mean Platelet Volume 9.5 fL (7.4-10.4); Nucleated Red Blood Cells % 0 % (-); Platelet Count 323 10^3/uL (130-400); Red Blood Cell Count 2.38 10^6/uL (4.70-6.10); Red Cell Dist. Width 15.8 % (11.5-14.5); White Blood Cell Count 9.6 10^3/uL (4.8-10.8)
[2023-09-19 06:34] LABS: Blood Urea Nitrogen 17 mg/dl (9-20); Carbon Dioxide 24 mmol/L (22-30); Chloride 98 mmol/L (98-107); Estimated Creatinine Clearance > 125 ml/min; Glucose 100 mg/dl (70-99); Magnesium 2.1 mg/dl (1.6-2.3); Potassium 3.6 mmol/L (3.5-5.1); Sodium 131 mmol/L (135-145); eGFR > 60.00
--- NOTE | 2023-09-19 07:39 | W.PN.INTV ---
Today's Communication / Plan
Recommendations
H/H
Transfusion if Hgb<7
CRS following
Assessment
-
Assessment:
Mr Hipolito Martínez is a 62/M adm 09-13 after planned robotic sigmoidectomy with take down of colovesical fistula with reported distal L ureteral injury (received intraop primary repair by Urology). Doing well postop, seen earlier today by CRS,
advancing to low residue, urology also following and planning exchange of L ureteral stent for internal JJ.
On afternoon 09-17 he was found slumped over side of bed, unresponsive, hypotensive, diaphoretic, regained consciousness upon being returned to supine position, as was about to be transferred to [facility] he did not have telemetry monitoring on,
started on IVFs, Cards consulted, TTE with normal LVEF and NWMAs (had normal TTE 09-07)
Labs noted progressive drop of Hgb from 13 to 8.6, mild progressive hyponatremia, mild hypokalemia, mildly elevated LA
Seen at ICU upon transfer 09-17, awake, in no resp distress, reports mild postop pain which is improving. Reported dark bloody stool on 09-16 and dark stools 09-17. Reports past out while sitting in bed at time of events
Impression:
Transient unresponsiveness
Suspected syncope secondary to acute moderate anemia
Progressive drop in Hgb from 13 on adm to 8.6
Dark bloody stools 09-16 (dark bilious color)
CT abd/p 09-17: hemoperitoneum
Hypotension, tachycardia
Requiring new onset NE and IVF resuscitation
Hyperdynamic LV on TTE 09-17
Mild progressive hyponatremia
Mild hypokalemia
Mildly elevated LA
Planned robotic sigmoidectomy with take down of colovesical fistula with reported distal L ureteral injury (received intraop primary repair by Urology): 09-13
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
Smoker
ETOH use
R hip replacement
Plan:
O2 protocol as needed
Currently on RA, POx 95%, in no resp distress
Transient unresponsiveness 09-17
Suspected syncope secondary to acute moderate anemia
Progressive drop in Hgb from 13 on adm to 8.6-7.8 on 09-17
Dark bloody stools 09-16
CT abd/p 09-17: hemoperitoneum, moderate
Hypotension, tachycardia
Required new onset NE (low dose for few hrs, then off as of 11 pm 09-17), and IVF resuscitation (LR 2L)
Hyperdynamic LV on TTE 09-17
2U PBRCs transfused: hgb 8.4 on 09-[address] abd/p c/c showed moderate hemoperitoneum
Keep NPO
Pain mgmt
Interim drop in Hgb late 09-18 (6.7), received 1 U PRBCs, f/u Hgb 7.7
Continue H/H monitoring
D/w surgery, medical mgmt for now but following closely for potential surgical exploration
Demand related ^trop, seen by Cards, no intervention currently warranted
Continue ertapenem per surgery, postop atb since 09-14
For internalization of L ureteral stent once stable, urology following
SCDs
PPI IV bid
Monitor for DTs
Per patient last ETOH drink one week ago as of 09-19
Has not scored MSAS
NRT
D/w MDT
D/w Mr Lange on a daily basis
Can downgrade to IMU or telem if no evidence of further bleeding
Diagnostic tests:
TTE 09-17-23
CONCLUSIONS
Limited 2D echo for eval of EF.
Normal left ventricular chamber size. Hyperdynamic left ventricular systolic function. Left ventricular ejection fraction is 70-75%. Normal regional wall motion.
Normal pericardium without effusion. No pleural effusion present.
Compared to the previous echo from Sep 07 2023, EF was 60-65% at that time.
SARAH doppler 09-18-23: negative
Subjective Dataa
Subjective Data
Date of Service:
Date of Service: September 19, 2023
Chief Complaint: Right Of Way Clearer Follow Up
Subjective:
No major events reported overnight
Denies major complaints
Hemoglobin drop noted last evening, received 1 unit of packed red blood cells
Discussed with surgery, following hemoglobin, continue medical management for now, unsure if he will need surgical intervention
Review of Systems
General: Fever (n), Sweats (n), Chills (n) and Satisfactory Appetite (n)
HEENT: Epistaxis (n) and Dysphagia (n)
Cardiopulmonary: Dyspnea (n), Cough and Chest Pain (n)
GI: Abdominal Pain (mild postop), Nausea (n) and Vomiting (n)
Neuro: Weakness (n)
Objective Data
Data Reviewed
Vital Signs / I&O / Oxygen:
Vital Signs
Temp Pulse Resp BP Pulse Ox
98.7 F 92 24 119/78 96
09/19/23 04:25 09/19/23 06:00 09/19/23 06:00 09/19/23 06:00 09/19/23 06:00
Intake and Output
09/18/23 09/19/23 09/20/23
06:59 06:59 06:59
Intake Total 3931.5 / 3981.5 1550 / 1550
Output Total 1360 / 1360 995 / 995
Balance 2571.5 / 2621.5 555 / 555
SaO2 96
Nasal Cannula flow liters per 2
minute
Physical Exam
General: Comfortable
HEENT: Normocephalic and Moist Mucous Membranes
Cardiovascular: Regular Rhythm, Murmur (n), Peripheral Edema (n) and Calf Tenderness (n)
Respiratory: Clear, Non-Labored Respirations and Stridor (n)
GI: Soft, Distended and Tender (mild )
Neurology: Awake, AO x 3 and No Motor Deficits
Skin: Dry
Labs/Micro/Reports
Lab Data
09/19/23 05:28
09/19/23 05:28
[2023-09-19] MEDS: NICODERM TRANSDERMAL 14 MG TRANSDERM (08:46)
[2023-09-19] MEDS: ROXICODONE 5 MG PO ×3 (08:47→17:49)
[2023-09-19] MEDS: PROTONIX IV 40 MG IV (08:48)
[2023-09-19] MEDS: NSS (PRESERVATIVE FREE) 10 ML IV (08:48)
[2023-09-19] MEDS: ENTEREG 12 MG PO ×2 (08:48→19:28)
[2023-09-19] MEDS: FOLVITE 1 MG PO (08:49)
[2023-09-19] MEDS: INVANZ 60 MG IV (08:49)
[2023-09-19] MEDS: FLUSH (NSS) 2 FLUSH IV (08:55)
--- NOTE | 2023-09-19 09:00 | PTCARENOTE ---
Rec'd pt at 0730 awake alert and oriented resting in bed. Overall admits to being frustrated at post op issues but understands that he needs to be in the hospital. Speech is clear. Denies dizziness or headache. Skin is pink wm and dry. Respirs are
unlabored on RA with sats of 97%. BS are sl decreased at the bases otherwise clear. Denies shortness of breath. Monitor SR with isolated PVC's. VS as documented. + pulses. No edema. Abd is round and sl distended with currently hypoactive BS. Has
been on the bedpan x2 this morning for loose/liquid greenish/brown stool. Rachel care given. Denies nausea. Abd 3 stab incisions approximated. Open to air. Surgical adhesive present. RLQ IDA in place to bulb suction. Draining sanginous drainage. Took
am meds with sips of water. Morgan intact for radha/yellow urine attached to catheter are 2 stents. IV LR infusing via R forearm at 50 ml/hr. Capped ints inact x2 L arm. Sites wnl. Assisted with repositioning in bed. Call cohn in reach. Plan of care
reviewed with pt.
--- NOTE | 2023-09-19 11:19 | PTCARENOTE ---
Remains resting oob in the chair. Back on bedpan but no results.
--- NOTE | 2023-09-19 11:34 | PTCARENOTE ---
Colorectal surgery in to see pt. Will check HH at 1200. C/O some R lower quad discomfort and mostly R hip pain from previous accident. Medicated at 0850 with Roxicodone 5 mg po for 03/29 pain (pt just wanted the 5 mg dose). Pt currently assisted oob
to the chair - states standing and moving helps the pain as well as the pain med. Currently resting oob in the chair. Gait steady with no c/o dizziness. Will monitor.
--- NOTE | 2023-09-19 11:59 | W.PN.CRS1 ---
Today's Communication / Plan
-
oob
rpt hgb at noon
clears
Assessment/Plan
-
POD #6 �1) robotic sigmoidectomy 2) takedown colovesical fistula 3) takedown splenic flexure 4) partial small bowel resection 5) flexible sigmoidoscopy
Code called 09/17 for hypotension and tachycardia with unresponsiveness, transferred to ICU on Levophed (now off) s/p [address] shows moderate hemoperitoneum including an 8 cm intermediate density (53 Hounsfield units) fluid collection in the
pelvic mesentery and moderate intermediate density fluid throughout the pelvis and left subdiaphragmatic region.
Plan:
1.� Advance diet to clears.
2.� Tachycardia resolved. Off of cindy gtt. BP maintaining.
3.� Ricci/stents per urology - will wait on stent/ricci exchange today given events from yesterday.
4.� OOB as tolerated.
5.� Hold Lovenox given anemia.� Continue TEDs/SCDs for DVT prophylaxis.
6.� Trend hemoglobin. Hgb 6.7 overnight and required 1 unit transfusion. Now 7.7 this AM. Repeat at noon.
7.� Continue ICU level of care today.
8.� Continue MAYKEL drain for now (bloody output).
9.� Pain control: Tylenol standing, oxycodone po and Dilaudid IV for breakthrough pain.
10. Continue IV Invanz due to intraabdominal spillage.
11. U/S LEs performed yesterday is negative.
Subjective Data
Procedure
09/14/2023- 1) robotic sigmoidectomy 2) takedown colovesical fistula 3) takedown splenic flexure 4) partial small bowel resection 5) flexible sigmoidoscopy
Subjective Data
Date of Service: September 19, 2023
Patient states he has hip and back pain. His abdominal pain is controlled. He had diarrhea overnight which was brown and green in color. He has no nausea or vomiting.
Objective Data
-
Vital Signs
Temp Pulse Resp BP Pulse Ox
98.5 F 88 20 106/60 100
09/19/23 11:46 09/19/23 11:00 09/19/23 11:00 09/19/23 11:00 09/19/23 11:00
Intake & Output
09/18/23 09/19/23 09/20/23
06:59 06:59 06:59
Intake Total 3931.5 / 3981.5 1550 / 1600 200 / 200
Output Total 1360 / 1360 995 / 995 100 / 100
Balance 2571.5 / 2621.5 555 / 605 100 / 100
Intake:
Oral fluids 1200 / 1200 100 / 100
IV fluids (Total) 1231.5 / 1281.5 1200 / 1250 200 / 200
Levophed 106.5 / 106.5
Lr 1,000 ml @ 50 mls/hr IV . 125 / 175 1200 / 1250 200 / 200
Q20H KARELY Rx#:[id number]
NSS 1000 / 1000
IV piggybacks 1000 / 1000
Blood Product Amount Infused ( 500 / 500 250 / 250
mL)
Packed Rbc Leukoreduced Unit 250 / 250
[id number]
Packed Rbc Leukoreduced Unit 250 / 250
[id number]
Packed Rbc Leukoreduced Unit 250 / 250
[id number]
Output:
Drain Output (Total) 50 / 50 10 / 10
Right Lower Abdomen Jose G- 50 / 50 10 / 10
Mcdaniel
Urine, Ricci 1310 / 1310 985 / 985 100 / 100
Other:
Number of unmeasured liquid
stools
Rectum 2
Lab Results
09/19/23 05:28
Physical Exam
-
General: No Acute Distress and AOx3
Abdomen: Soft, Distended (moderate, unchanged), Non Tender and Other (maykel bloody)
Incision: Clear, Dry, Intact
--- NOTE | 2023-09-19 12:00 | PTCARENOTE ---
Complete CHG bath given. HH sent. Pt remains resting oob in the chair. States he feels much better sitting up. No dizziness. 1 ureteral stent appears to be more looped outside will update surgery and urology. Pt initally did not have a leg strap on
with the catheter but one placed as he tends to cross and uncross his legs and stand up to get on to the commode. Urine is yellow. Will monitor
[2023-09-19 12:32] LABS: Hemoglobin 7.2 g/dL (13.0-18.0)
--- NOTE | 2023-09-19 12:32 | W.PN.HOSP.TC ---
Today's Communication/Plan
-
Monitor vital signs and see plan
Monitor hemoglobin
Transfuse as necessary
Started on clears by colorectal
Assessment / Plan
Assessment / Plan
Elective robotic sigmoidectomy with takedown of colovesicular fistula
Hemorrhagic shock
post op ileus slowly resolving, ricci continues to drain bloody urine; plan for stent conversion when ok with urology
09/17 Patient found by nursing slumped over the side of his bed unresponsive, he was hypotensive and diaphoretic.� Initially fluids was started.� Urgent bedside echo with preserved EF.� Patient initially responded to fluids however was hypotensive
again.� Later on patient had a black bowel movement.� was started on levophed; now off
monitor H/H; transfuse as necessary
CT scan consistent with moderate hemoperitoneum. s/p blood transfusion; monitor hgb
Ricci catheter to continue, management per urology
Now started on clears
cw PPI
Hyponatremia
Monitor
hx of alcohol use
Anemia, suspect acute blood loss
CT scan with moderate hemoperitoneum
Colorectal surgery following
Monitor hemoglobin
Status post blood transfusion 09/17
Elevated troponin, likely non-[place] related to monitor
Cardiology following
Hypokalemia
improved
Hx of alcohol use
pt states 2 Vodkas per day. Denies withdrawal symptoms, but drank regularly. No tremor or evidence of withdrawal currently
cw MSAS
Hx of cig smoking
reviewed importance of cessation
nicotine patch
full code
General: Well Developed, Well Nourished and No Apparent Distress
HEENT: Normocephalic, Atraumatic and Moist Mucous Membranes
Respiratory: Clear to Auscultation, no wheezing
Cardiac: Regular Rhythm and S1/S2
GI: Soft and Distended
Genito-urinary: Ricci
Musculoskeletal: No Clubbing, No Cyanosis and No Edema
Neuro: Awake, Alert and Oriented
Anticipated Discharge: > 48 hours
Subjective/Interval History
-
Date of Service: September 19, 2023
denies pain
Objective Data
-
Labs:
Laboratory Results
09/19/23 09/19/23
05:28 12:18
WBC 9.6
Hgb 7.7 L Pending
Hct 22.0 L Pending
Plt Count 323
Sodium 131 L
Potassium 3.6
Chloride 98
Carbon Dioxide 24
BUN 17
Creatinine 0.6 L
Glucose 100 H
Calcium 8.0 L
Vital Signs:
Vital Signs
Temp Pulse Resp BP Pulse Ox
98.5 F 88 20 106/60 100
09/19/23 11:46 09/19/23 11:00 09/19/23 11:00 09/19/23 11:00 09/19/23 11:00
I&O
09/18/23 09/19/23 09/20/23
06:59 06:59 06:59
Intake Total 3931.5 / 3981.5 1550 / 1600 200 / 200
Output Total 1360 / 1360 995 / 995 100 / 100
Balance 2571.5 / 2621.5 555 / 605 100 / 100
[2023-09-19 12:41] LABS: Hematocrit 20.3 % (39.0-52.0)
[2023-09-19] MEDS: TYLENOL PO ×4 (13:14→23:23)
[2023-09-19] MEDS: TRANEXAMIC ACID 100 IV (13:15)
--- NOTE | 2023-09-19 13:20 | PTCARENOTE ---
Dr. Ortiz in to see pt and updated. Dr. Lorenz updated about stent. Tranexamic Acid 1000 mg Hung via R forearm IV site per md order. Pt taking few sips of clear liquids. No c/o nausea but states he has little appetite. Remedicated with
Roxicodone 5 mg po for R hip and R lower abd soreness. Will hang 1 unit PRBC when available
--- NOTE | 2023-09-19 14:08 | W.PN.URO.CBU ---
Today's Communication / Plan
-
if patient is clinically stable, will bring him to OR on Sunday to exchange left ureteral catheter for an internal, JJ ureteral stents which would remain in place for ~ 6 weeks
Assessment / Plan
-
s/p colectomy with takedown of colo-ves fistula and repair of left ureteral injury
Right ureteral catheter inadvertently extracted; left ureteral catheter and Morgan remain
clinically improved, but still anemic
Diagnosis
-
Date of Service: September 19, 2023
-
Patient Diagnosis:
s/p colectomy with repair of colo-ves fistula and repair of left ureteral injury
Post Op Day:
09/13/23
Subjective
-
feeling better
Objective
-
Vital Signs
Temp Pulse Resp BP Pulse Ox
98.5 F 96 14 122/83 100
09/19/23 11:46 09/19/23 13:05 09/19/23 13:05 09/19/23 13:05 09/19/23 11:00
Intake and Output
09/18/23 09/19/23 09/20/23
06:59 06:59 06:59
Intake Total 3931.5 / 3981.5 1550 / 1600 750 / 750
Output Total 1360 / 1360 995 / 995 250 / 250
Balance 2571.5 / 2621.5 555 / 605 500 / 500
Intake:
Oral fluids 1200 / 1200 100 / 100 300 / 300
IV fluids (Total) 1231.5 / 1281.5 1200 / 1250 350 / 350
Levophed 106.5 / 106.5
Lr 1,000 ml @ 50 mls/hr IV . 125 / 175 1200 / 1250 350 / 350
Q20H KARELY Rx#:[id number]
NSS 1000 / 1000
IV piggybacks 1000 / 1000 100 / 100
Blood Product Amount Infused ( 500 / 500 250 / 250
mL)
Packed Rbc Leukoreduced Unit 250 / 250
[id number]
Packed Rbc Leukoreduced Unit 250 / 250
[id number]
Packed Rbc Leukoreduced Unit 250 / 250
[id number]
Output:
Drain Output (Total)
Right Lower Abdomen Jose G-
Mcdaniel
Urine, Morgan 1310 / 1310 985 / 985 250 / 250
Other:
Number of unmeasured liquid
stools
Rectum 2
Laboratory Results
09/19/23 12:18
09/19/23 05:28
Physical Exam
-
General -seated in lounger; NAD
Genitalia - Morgan + bilateral ureteral stents: right ureteral stent is entirely distracted from patient; Left ureteral catheter and Morgan amended to common drainage via Holguin adapter.
--- NOTE | 2023-09-19 14:20 | PTCARENOTE ---
Dr. Lorenz in and removed R ureteral stent as it had become dislodged. #1 unit PRBC hung via R forearm . LR infusing via L hand currently. Pt remains resting oob in the chair.
--- NOTE | 2023-09-19 14:34 | W.PN.UPDATE ---
Update Note
Progress Note Update
Patient seen at bedside by me recently. Sitting up in chair. On clears. Repeat Hg dropped 1/2 a gram to 7.2 from 7.7. Afebrile with HR in 90s and reasonable blood pressure. Abdomen moderately distended (unchanged) with typical incisional
tenderness. Unclear if he is bleeding still albeit at a slower rate or if he's stopped and the Hg represents hemodilution/equilibration. Either way, 1 gram IV TXA ordered and will give another of PRBCs. Will continue to follow Hgs. Patient
updated by me. Patient's , Paige, updated via VM message.
--- NOTE | 2023-09-19 15:30 | PTCARENOTE ---
States earlier Roxicodone helps the R lower abd and mostly hip pain greatly. Remains oob in the chair. Blood infusing. No other changes
--- NOTE | 2023-09-19 17:40 | PTCARENOTE ---
#1 unit PRBC completed at 1720- noticed when ready to take blood down that blanket and gown had a mod to large amt of blood on them. IDA drain dressing was saturated and IDA site oozing. 50 mls of Sanguinous drainage out of IDA. Site cleansed and
redressed. Pt on commode for small amt of loose brown/green stool. Remains resting oob. HH sent. Will update colorectal surgery when HH back
[2023-09-19 18:20] LABS: Hemoglobin 8.6 g/dL (13.0-18.0)
[2023-09-19] MEDS: PROTONIX 40 MG PO (19:28)
--- NOTE | 2023-09-19 20:36 | PTCARENOTE ---
Assumed care of patient at 1920. AAOx3. Resting comfortably in chair. VSS. NSR/ST on tele monitor with rate in the 80-100's. Lung sounds diminished throughout on RA. POX 96-97%. Abdomen distended. Firm and tender in RLQ. Right IDA drain dressing
c/d/i. Sanguineous drainage in bulb. Lap site approximated, surgical glue. Morgan draining radha urine. Left stent in place. LR infusing as ordered through right forearm INT. H&H due at 0000.
--- NOTE | 2023-09-19 21:04 | PTCARENOTE ---
Dressing around IDA drain saturated with blood. Dressing changes. 70 cc's of sanguineous output in IDA drain.
[2023-09-19] MEDS: FLOMAX 0.400000000000000022 MG PO (21:47)
[2023-09-19 22:00] LABS: Hematocrit 21.1 % (39.0-52.0); Hemoglobin 7.7 g/dL (13.0-18.0)
--- NOTE | 2023-09-19 23:15 | PTCARENOTE ---
Patient continuing to drain large amounts of sanguineous drainage from IDA. From [id number], 385 cc's emptied. Dressing around IDA also saturated x2. Discussed with DIALS SUPERVISOR and H&H drawn at 0. Hgb 7.7 , Hct 21.1. VSS.
[2023-09-20] VITALS (36 sets, daily range): BP systolic 103–144; BP diastolic 64–99; BMI 27.4
[2023-09-20] MEDS: ROXICODONE 5 MG PO ×4 (02:46→16:47)
--- NOTE | 2023-09-20 02:51 | PTCARENOTE ---
Patient taken for CTA due to large amount of sanguinous output from IDA drain. Total output since 1899: 720 cc's + 2 saturated dressings and 1 small from around site.
[2023-09-20] MEDS: TYLENOL PO ×2 (04:03→07:58)
[2023-09-20 04:13] LABS: % Basophils 0.4 % (0-2); % Eosinophils 3.7 % (0-6); % Immature Granulocytes 1.9 % (0-0.5); % Lymphocytes 9.8 % (20.5-51.1); % Monocytes 12.7 % (1.7-9.3); % Neutrophils 71.5 % (42.2-75.2); Absolute Eosinophils 0.4 10^3/uL (0-0.7); Absolute Immature Granulocytes 0.2 10^3/uL (0-0.05); Absolute Lymphocytes 0.9 10^3/uL (1.2-3.4); Absolute Monocytes 1.2 10^3/uL (0.1-0.6); Absolute Neutrophils 6.7 10^3/uL (1.4-6.5); Hemoglobin 7.2 g/dL (13.0-18.0); Mean Corpuscular Hgb 32.7 pg (27.0-31.0); Mean Corpuscular Volume 93.6 fL (80.0-94.0); Mean Platelet Volume 9.1 fL (7.4-10.4); Nucleated Red Blood Cells % 0 % (-); Platelet Count 355 10^3/uL (130-400); Red Cell Dist. Width 15.4 % (11.5-14.5); White Blood Cell Count 9.4 10^3/uL (4.8-10.8)
[2023-09-20 04:23] LABS: Blood Urea Nitrogen 11 mg/dl (9-20); Calcium 7.6 mg/dl (8.4-10.2); Carbon Dioxide 25 mmol/L (22-30); Chloride 100 mmol/L (98-107); Estimated Creatinine Clearance > 125 ml/min; Glucose 93 mg/dl (70-99); Potassium 3.5 mmol/L (3.5-5.1); Sodium 127 mmol/L (135-145); eGFR > 60.00
[2023-09-20 04:35] LABS: Hematocrit 20.6 % (39.0-52.0)
--- NOTE | 2023-09-20 04:39 | PTCARENOTE ---
Critical results communicated with PERRY Wilson. Hgb 7.2, Hct 20.6.
[2023-09-20] MEDS: KCL 160 MEQ IV (06:36)
--- NOTE | 2023-09-20 07:52 | W.PN.INTV ---
Today's Communication / Plan
Recommendations
H/H
Urology to OR 09-21 if stable
Assessment
-
Assessment:
Mr Hipolito Martínez is a 62/M adm 09-13 after planned robotic sigmoidectomy with take down of colovesical fistula with reported distal L ureteral injury (received intraop primary repair by Urology). Doing well postop, seen earlier today by CRS,
advancing to low residue, urology also following and planning exchange of L ureteral stent for internal JJ.
On afternoon 09-17 he was found slumped over side of bed, unresponsive, hypotensive, diaphoretic, regained consciousness upon being returned to supine position, as was about to be transferred to [facility] he did not have telemetry monitoring on,
started on IVFs, Cards consulted, TTE with normal LVEF and NWMAs (had normal TTE 09-07)
Labs noted progressive drop of Hgb from 13 to 8.6, mild progressive hyponatremia, mild hypokalemia, mildly elevated LA
Seen at ICU upon transfer 09-17, awake, in no resp distress, reports mild postop pain which is improving. Reported dark bloody stool on 09-16 and dark stools 09-17. Reports past out while sitting in bed at time of events
Impression:
Transient unresponsiveness
Suspected syncope secondary to acute moderate anemia
Progressive drop in Hgb from 13 on adm to 8.6
Dark bloody stools 09-16 (dark bilious color)
CT abd/p 09-17: hemoperitoneum
Hypotension, tachycardia
Requiring new onset NE and IVF resuscitation
Hyperdynamic LV on TTE 09-17
Mild progressive hyponatremia
Mild hypokalemia
Mildly elevated LA
Planned robotic sigmoidectomy with take down of colovesical fistula with reported distal L ureteral injury (received intraop primary repair by Urology): 09-13
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
Smoker
ETOH use
R hip replacement
Plan:
O2 protocol as needed
Currently on RA, POx 95%, in no resp distress
Transient unresponsiveness 09-17
Suspected syncope secondary to acute moderate anemia
Progressive drop in Hgb from 13 on adm to 8.6-7.8 on 09-17
Dark bloody stools 09-16
CT abd/p 09-17: hemoperitoneum, moderate
Hypotension, tachycardia
Required new onset NE (low dose for few hrs, then off as of 11 pm 09-17), and IVF resuscitation (LR 2L)
Hyperdynamic LV on TTE 09-17
2U PBRCs transfused: hgb 8.4 on 09-[address] abd/p c/c showed moderate hemoperitoneum
Keep NPO
Pain mgmt
Interim drop in Hgb late 09-18 (6.7), received 1 U PRBCs, f/u Hgb 7.7, now down to 7.2 on 09-20
Continue H/H monitoring, transfusing as needed, 1 extra unit of red blood cells on September 20
D/w surgery, medical mgmt for now
Interim increase on drainage from IDA, repeat abdomen CT on September 20 showed decrease in hemoperitoneum
Demand related ^trop, seen by Cards, no intervention currently warranted
Continue ertapenem per surgery, postop atb since 09-14
For internalization of L ureteral stent, likely on September 21 if remains stable, urology following
SCDs
PPI IV bid
Monitor for DTs
Per patient last ETOH drink one week ago as of 09-19
Has not scored MSAS
NRT
D/w MDT
D/w Mr Lange on a daily basis
Can downgrade to IMU or telem if no evidence of further bleeding
Diagnostic tests:
TTE 09-17-23
CONCLUSIONS
Limited 2D echo for eval of EF.
Normal left ventricular chamber size. Hyperdynamic left ventricular systolic function. Left ventricular ejection fraction is 70-75%. Normal regional wall motion.
Normal pericardium without effusion. No pleural effusion present.
Compared to the previous echo from Sep 07 2023, EF was 60-65% at that time.
SARAH doppler 09-18-23: negative
Subjective Dataa
Subjective Data
Date of Service:
Date of Service: September 20, 2023
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
Subjective:
No major events reported overnight
Further drop in hemoglobin down to 7.2 today, receiving 1 unit of packed red blood cells
Repeat CT abdomen with decreased hemoperitoneum, reportedly IDA drain has continue showing increasing levels of drainage of dark blood
Review of Systems
General: Fever (n), Sweats (n), Chills (n) and Satisfactory Appetite (n)
HEENT: Epistaxis (n) and Dysphagia (n)
Cardiopulmonary: Dyspnea, Cough (n), Wheezing and Chest Pain
GI: Abdominal Pain, Nausea (n) and Vomiting
Neuro: Weakness
Objective Data
Data Reviewed
Vital Signs / I&O / Oxygen:
Vital Signs
Temp Pulse Resp BP Pulse Ox
98.3 F 107 23 105/64 93
09/20/23 03:23 09/20/23 06:00 09/20/23 06:00 09/20/23 06:00 09/20/23 06:00
Intake and Output
09/19/23 09/20/23 09/21/23
06:59 06:59 06:59
Intake Total 1550 / 1600 2120 / 2170 50 / 50
Output Total 995 / 995 1944 / 2044 100 / 100
Balance 555 / 605 175 / 125 -50 / -50
SaO2 93
Nasal Cannula flow liters per 2
minute
Physical Exam
General: Comfortable
HEENT: Normocephalic and Moist Mucous Membranes
Cardiovascular: Regular Rhythm, Murmur (n), Peripheral Edema (n) and Calf Tenderness (n)
Respiratory: Clear, Non-Labored Respirations and Stridor (n)
GI: Soft, Distended, Tender (mild ) and Other (IDA)
Neurology: Awake, AO x 3 and No Motor Deficits
Skin: Dry
Labs/Micro/Reports
Lab Data
09/20/23 03:20
[2023-09-20] MEDS: NICODERM TRANSDERMAL 14 MG TRANSDERM (07:55)
[2023-09-20] MEDS: ENTEREG 12 MG PO ×2 (07:56→19:58)
[2023-09-20] MEDS: PROTONIX 40 MG PO ×2 (07:56→19:58)
[2023-09-20] MEDS: FOLVITE 1 MG PO (07:58)
[2023-09-20] MEDS: INVANZ 60 MG IV (08:17)
--- NOTE | 2023-09-20 09:00 | PTCARENOTE ---
Rec'd pt at 0730 awake alert and oriented sitting oob in the chair. States it feels more comfortable sitting up. Overall states he feels better. States while he still has 6/10 discomfort in his RLQ and R hip soreness overall he feels better.
Remedicated at 0800 with Roxicodone 5 mg po for the pain. Denies dizziness or headache. Speech is clear. Skin is pink wm and dry. Bruising on arms noted. Respirs are unlabored on RA with sats of 98%. BS are decreased at the bases. Encouraged to use
IS and getting 1500 mls. Monitor SR.+ pulses. No edema. VS as documented. Abd is distended but soft with + BS. Denies nausea. 4 stab wounds approximated with surg adhesive present. RLQ IDA drain with sang drainage. Dressing over is D+I. Emptied as
documented. On BSC for loose liquid green/brown stool. Small to mod amt. Dr. Lance in to see pt and updated. Ricci intact for yellow urine- ureteral stent present attached to ricci. KCL rider almost finishing via R forearm site. LR infusing via R
upper arm site at 50 ml/hr. Capped int intact L arm. Pt able to reposition himself. Ready to eat clear liquid breakfast. Call cohn in reach. Plan of care reviewed with pt. Pt to get 1 unit PRBC's today.
--- NOTE | 2023-09-20 09:50 | PTCARENOTE ---
#1 unit PRBC's hung per MD order via R forearm IV site. IV fluids capped. . Working on some clear liquds, no nausea.. Remains resting oob in the chair visiting with visitor.
--- NOTE | 2023-09-20 10:32 | W.PN.URO.CBU ---
Today's Communication / Plan
-
if clinically stable tomorrow, will bring to OR during AM to convert left open-ended left ureteral catheter to an internal JJ ureteral stent
Assessment / Plan
-
s/p colectomy with takedown of colo-ves fistula and repair of left ureteral injury
Right ureteral catheter inadvertently extracted; left ureteral catheter and Morgan remain
clinically improved, but still anemic
Diagnosis
-
Date of Service: September 20, 2023
-
Patient Diagnosis:
s/p colectomy with repair of colo-ves fistula and repair of left ureteral injury
Post Op Day:
09/13/23
Objective
-
Vital Signs
Temp Pulse Resp BP Pulse Ox
98 F 91 18 120/83 97
09/20/23 10:05 09/20/23 10:15 09/20/23 10:15 09/20/23 10:15 09/20/23 10:15
Intake and Output
09/19/23 09/20/23 09/21/23
06:59 06:59 06:59
Intake Total 1550 / 1600 2120 / 2170 310 / 310
Output Total 995 / 995 1945 / 2045 370 / 370
Balance 555 / 605 175 / 125 -60 / -60
Intake:
Oral fluids 100 / 100 400 / 400
IV fluids (Total) 1200 / 1250 1150 / 1200 310 / 310
Lr 1,000 ml @ 50 mls/hr IV . 1200 / 1250 1150 / 1200 150 / 150
Q20H KARELY Rx#:[id number]
kcl 160 / 160
IV piggybacks 320 / 320
Blood Products 250 / 250
Packed red blood cells 250 / 250
Blood Product Amount Infused ( 250 / 250 0 / 0
mL)
Packed Rbc Leukoreduced Unit 0 / 0
[id number]
Packed Rbc Leukoreduced Unit 250 / 250
[id number]
Output:
Drain Output (Total) 945 / 5 170 / 170
Right Lower Abdomen Joseg - 94 / 5 170 / 170
Mcdaniel
Urine, Morgan 985 / 985 1000 / 1000 200 / 200
Other:
Number of unmeasured liquid
stools
Rectum 2
Laboratory Results
09/20/23 03:20
Physical Exam
-
General - well developed, well nourished, no acute distress
Chest - clear bilaterally
Abdomen - soft, non-tender, positive bowel sounds, no CVAT, no incisional pain or distention
Genitalia - normal
Rectal - normal
Skin - warm & dry with no rash
Neuro - AOx3, no motor deficits
Extremities - no clubbing, no cyanosis, no edema
Incision - clean, dry
Dressing - clean, dry, intact
--- NOTE | 2023-09-20 11:11 | CON.MD ---
Consultation - Medical
-
IMP:
Elective robotic sigmoidectomy with takedown of colovesicular fistula and repair of left ureteral injury
Hemorrhagic shock
post op ileus slowly resolving,
Hyponatremia
hx of alcohol use
Anemia, suspect acute blood loss
Elevated troponin, likely non-NC related to monitor
Hx of cig smoking
CHr pain on narcs
PLan:
A/w elective robotic sigmoidectomy and take down of colovesical fistula
Hypoantremia-worsening slowly despite IVF with high ADH state , U osmo 689 and U na low
Multifactorial in etiology -post op, decreased po intake, pain, anemia
he seem euvolemic and stable BP
will try samsca today, noted he is plan for OR tomorrow per to internalize JJ catheter
FR 48 ounces/day
check TSH in am
d/w nursing
[id number]
--- NOTE | 2023-09-20 11:48 | W.PN.HOSP.TC ---
Today's Communication/Plan
-
monitor vitals
see plan
transfuse another unit today
[facility] today
Assessment / Plan
Assessment / Plan
Elective robotic sigmoidectomy with takedown of colovesicular fistula
Hemorrhagic shock
post op ileus slowly resolving, ricci continues to drain bloody urine; plan for stent conversion 09/21
09/17 Patient found by nursing slumped over the side of his bed unresponsive, he was hypotensive and diaphoretic.� Initially fluids was started.� Urgent bedside echo with preserved EF.� Patient initially responded to fluids however was hypotensive
again.� Later on patient had a black bowel movement.� was started on levophed; now off
monitor H/H; transfuse as necessary
CT scan consistent with moderate hemoperitoneum. s/p blood transfusion; monitor hgb
Ricci catheter to continue, management per urology
cw fulls; npo past midnight
cw PPI
Hyponatremia
Monitor
suspect SIADH; [facility] [place]; nephrology following
hx of alcohol use
Anemia, suspect acute blood loss
CT scan with moderate hemoperitoneum
Colorectal surgery following
Monitor hemoglobin
Status post blood transfusion 09/17; another unit 09/20
Elevated troponin, likely non-DC related to monitor
Cardiology following
Hypokalemia
improved
Hx of alcohol use
pt states 2 Vodkas per day. Denies withdrawal symptoms, but drank regularly. No tremor or evidence of withdrawal currently
cw MSAS
Hx of cig smoking
reviewed importance of cessation
nicotine patch
full code
General: Well Developed, Well Nourished and No Apparent Distress
HEENT: Normocephalic, Atraumatic and Moist Mucous Membranes
Respiratory: Clear to Auscultation, no wheezing
Cardiac: Regular Rhythm and S1/S2
GI: Soft and Distended
Genito-urinary: Ricci
Musculoskeletal: No Clubbing, No Cyanosis and No Edema
Neuro: Awake, Alert and Oriented
Anticipated Discharge: > 48 hours
Subjective/Interval History
-
Date of Service: September 20, 2023
denies pain
Objective Data
-
Labs:
Laboratory Results
09/20/23 09/20/23
03:20 18:00
WBC 9.4
Hgb 7.2 L Pending
Hct 20.6 L* Pending
Plt Count 355
Sodium 127 L
Potassium 3.5
Chloride 100
Carbon Dioxide 25
BUN 11
Creatinine 0.5 L
Glucose 93
Calcium 7.6 L
Vital Signs:
Vital Signs
Temp Pulse Resp BP Pulse Ox
98 F 91 18 120/83 97
09/20/23 10:05 09/20/23 10:15 09/20/23 10:15 09/20/23 10:15 09/20/23 10:15
I&O
09/19/23 09/20/23 09/21/23
06:59 06:59 06:59
Intake Total 1550 / 1600 2120 / 2170 510 / 510
Output Total 995 / 995 1945 / 2045 370 / 370
Balance 555 / 605 175 / 125 140 / 140
--- NOTE | 2023-09-20 12:01 | W.PN.CRS1 ---
Today's Communication / Plan
-
transfuse 1 unit
fulls with ensure
hold ASA
Assessment/Plan
-
POD #7 �1) robotic sigmoidectomy 2) takedown colovesical fistula 3) takedown splenic flexure 4) partial small bowel resection 5) flexible sigmoidoscopy
Code called 09/17 for hypotension and tachycardia with unresponsiveness, transferred to ICU on Levophed (now off) s/p [address] shows moderate hemoperitoneum including an 8 cm intermediate density (53 Hounsfield units) fluid collection in the
pelvic mesentery and moderate intermediate density fluid throughout the pelvis and left subdiaphragmatic region.
Plan:
1.� Advance diet to fulls with Ensure.
2.� Tachycardia resolved. Off of cindy gtt. BP maintaining.
3.� Morgan/stents per urology - likely exchange tomorrow. R stent dislodged overnight.
4.� OOB as tolerated.
5.� Hold Lovenox given anemia.�Hold ASA 81mg for now. Continue TEDs/SCDs for DVT prophylaxis.
6.� Trend hemoglobin. Hgb 7.2 this AM. Will transfuse with another 1unit PRBCs. Recheck q6h.
7.� Continue ICU level of care today.
8.� Continue IDA drain for now (bloody output).
9.� Pain control: Tylenol standing, oxycodone po and Dilaudid IV for breakthrough pain.
10. Continue IV Invanz due to intraabdominal spillage.
11. CT A/P with no findings to confirm active large or small bowel bleeding. Discussed with patient.
12. I updated his , Paige, via phone.
Subjective Data
Procedure
09/14/2023- 1) robotic sigmoidectomy 2) takedown colovesical fistula 3) takedown splenic flexure 4) partial small bowel resection 5) flexible sigmoidoscopy
Subjective Data
Date of Service: September 20, 2023
Patient states that he feels 'good'. He has an appetite. He has no nausea or vomiting. He has flatus. He has green/brown liquid bowel movements. He is sitting in a chair.
Objective Data
-
Vital Signs
Temp Pulse Resp BP Pulse Ox
98 F 91 18 120/83 97
09/20/23 10:05 09/20/23 10:15 09/20/23 10:15 09/20/23 10:15 09/20/23 10:15
Intake & Output
09/19/23 09/20/23 09/21/23
06:59 06:59 06:59
Intake Total 1550 / 1600 2120 / 2170 510 / 510
Output Total 995 / 995 1945 / 2045 370 / 370
Balance 555 / 605 175 / 125 140 / 140
Intake:
Oral fluids 100 / 100 400 / 400 200 / 200
IV fluids (Total) 1200 / 1250 1150 / 1200 310 / 310
Lr 1,000 ml @ 50 mls/hr IV . 1200 / 1250 1150 / 1200 150 / 150
Q20H KARELY Rx#:[id number]
kcl 160 / 160
IV piggybacks 320 / 320
Blood Products 250 / 250
Packed red blood cells 250 / 250
Blood Product Amount Infused ( 250 / 250 0 / 0
mL)
Packed Rbc Leukoreduced Unit 0 / 0
[id number]
Packed Rbc Leukoreduced Unit 250 / 250
[id number]
Output:
Drain Output (Total) 945 / 1045 170 / 170
Right Lower Abdomen Jose G- 945 / 1045 170 / 170
Mcdaniel
Urine, Morgan 985 / 985 1000 / 1000 200 / 200
Other:
Number of unmeasured liquid
stools
Rectum 2
Lab Results
09/20/23 03:20
Physical Exam
-
General: No Acute Distress and AOx3
Abdomen: Soft, Distended (moderate (a little less than yesterday)) and Non Tender
Skin: Warm and Dry
Incision: Clear, Dry, Intact
[2023-09-20] MEDS: SAMSCA 7.5 MG PO (12:05)
--- NOTE | 2023-09-20 12:05 | PTCARENOTE ---
Samsca 7.5 mg po given
[2023-09-20] MEDS: TYLENOL 650 MG PO ×3 (12:06→19:58)
[2023-09-20] MEDS: FLUSH (NSS) 1 FLUSH IV (12:43)
--- NOTE | 2023-09-20 12:43 | PTCARENOTE ---
Medicated with Roxicodone 5 mg poat 1205 for RLQ and R hips discomfort 03/29- just wanted 5 mg dose. Blood finished infusing
[2023-09-20 13:28] LABS: Hematocrit 23.6 % (39.0-52.0); Hemoglobin 8.4 g/dL (13.0-18.0)
--- NOTE | 2023-09-20 14:00 | PTCARENOTE ---
Blood finished infusing at 1225. HH sent. AM care given- pt stood at the sink and shaved and did own mouth care. CHG bath given. Morgan care done earlier. Pt tolerated standing at the sink- no dizziness. Gait is sl slow but steady. Pt then ambulated
one loop around the ICU with the use of the rolling walker. Currently resting back in the chair. States that just moving around more has made him feel better than he has in a week. Morgan draining yellow urine. IDA still with bloody drainage- amts as
documented. Dressing is D+I. Colorectal surgery updated on . Call suki in reach.
--- NOTE | 2023-09-20 14:07 | CM ---
CM following re: discharge planning.
Discussed in rounds, reviewed pt's chart, met with pt. Per rounds meeting, pt is POD #7 � robotic sigmoidectomy with takedown of colovesicular fistula , continue supportive care. Per chart review, continue IDA drain. Colorectal surgery following.
Pt reports he lives alone in a 2SH and was able to ambulate without any assistive devices. Pt reports his spouse lives separately and they are . Pt reports here he ambulates with a walker.
Per [facility] CRS, pt declined inpatient and/or outpatient D&A treatment program and agrees with online AA meetings and sponsor support.
D/C plan: Home with anticipated no needs. Will arrange VN if IDA drain remains. [facility] following.
CM will follow with discharge plan updates as hospitalization progresses
--- NOTE | 2023-09-20 16:50 | PTCARENOTE ---
Assisted back to bed after using the commode for small amt of loose liquid green/brown stool. SCD's applied. Morgan draining increased amts of urine. Remains with exterior stent present. Remedicated with Roxicodone 5 mg po for 6/10 RLQ abd and R hip
discomfort. IDA draining bloody drainage. Call cohn in reach.
--- NOTE | 2023-09-20 18:30 | PTCARENOTE ---
HH sent. Pt slept for a while post Roxicodone. and currently assisted back oob to the BSC then to the chair. No other changes. Will continue to monitor.
[2023-09-20 18:40] LABS: Hematocrit 24.1 % (39.0-52.0); Hemoglobin 8.5 g/dL (13.0-18.0)
[2023-09-20] MEDS: FLOMAX 0.400000000000000022 MG PO (21:00)
[2023-09-20] MEDS: ROXICODONE 10 MG PO (21:00)
--- NOTE | 2023-09-20 21:30 | PTCARENOTE ---
Assumed care of patient at 1930. Patient oob in chair. AAOx3. NSR on tele monitor. VSS. Lung sounds diminished in b/l bases. POX 97% on RA. +BS. Abdomen distended and tender. RLQ firm. IDA drain with sanguineous drainage. Dressing with moderate
drainage. Redressed. 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 Morgan draining yellow urine. Left stent in place. Patient aware of NPO at midnight for OR in am.
[2023-09-21] VITALS (41 sets, daily range): BP systolic 96–145; BP diastolic 62–99; PULSE 90; BMI 26.5
[2023-09-21] MEDS: TYLENOL PO ×3 (00:47→08:00)
--- NOTE | 2023-09-21 00:49 | PTCARENOTE ---
Patient resting comfortably. No complaints. Output from right IDA drain slowing down. Dressing c/d/i. VSS.
[2023-09-21] MEDS: ROXICODONE 5 MG PO ×4 (03:59→20:38)
--- NOTE | 2023-09-21 04:09 | PTCARENOTE ---
No changes in assessment. CHG bath performed and linens changed for OR. AM labs drawn. VSS.
[2023-09-21 04:26] LABS: % Basophils 0.4 % (0-2); % Eosinophils 3.9 % (0-6); % Immature Granulocytes 1.9 % (0-0.5); % Lymphocytes 9.2 % (20.5-51.1); % Monocytes 10.9 % (1.7-9.3); % Neutrophils 73.7 % (42.2-75.2); Absolute Eosinophils 0.4 10^3/uL (0-0.7); Absolute Immature Granulocytes 0.2 10^3/uL (0-0.05); Absolute Lymphocytes 0.9 10^3/uL (1.2-3.4); Hematocrit 25.5 % (39.0-52.0); Hemoglobin 8.7 g/dL (13.0-18.0); Mean Corp Hgb Conc. 34.1 g/dL (33.0-37.0); Mean Corpuscular Hgb 32.2 pg (27.0-31.0); Mean Corpuscular Volume 94.4 fL (80.0-94.0); Mean Platelet Volume 8.8 fL (7.4-10.4); Nucleated Red Blood Cells % 0 % (-); Platelet Count 452 10^3/uL (130-400); Red Cell Dist. Width 15.5 % (11.5-14.5); White Blood Cell Count 9.4 10^3/uL (4.8-10.8)
[2023-09-21 04:59] LABS: Blood Urea Nitrogen 6 mg/dl (9-20); Calcium 8.4 mg/dl (8.4-10.2); Carbon Dioxide 26 mmol/L (22-30); Chloride 100 mmol/L (98-107); Estimated Creatinine Clearance > 125 ml/min; Glucose 113 mg/dl (70-99); Potassium 3.6 mmol/L (3.5-5.1); Sodium 134 mmol/L (135-145); eGFR > 60.00
[2023-09-21 05:23] LABS: TSH Reflex To Free T4 3.46 uIU/ml (0.47-4.68)
--- NOTE | 2023-09-21 07:54 | W.SUR.PREOP ---
Pre-Operative Surgical Note
-
I have examined this patient prior to the performance of the scheduled procedure.
The patient's condition is unchanged from the time of the current History and
Physical and the patient is able to undergo the scheduled procedure.
--- NOTE | 2023-09-21 07:54 | W.IMMPOSTOP ---
Surgical Immed Post Op Note
-
Primary Surgeon: Kelechi
Pre-op Diagnosis: s/p repair of left ureter
Post-op Diagnosis: same
Procedure Performed: cystoscopy with exchange of left ureteral catheter for an indwelling JJ left ureteral stent [6 Fr, 24 cm]
Anesthesia Type: LMA
Specimen / Cultures: none
Estimated Blood Loss: none
Complications: none
Morgan removed
case d/w Dr Ortiz
[2023-09-21] MEDS: INVANZ 60 MG IV (08:33)
--- NOTE | 2023-09-21 08:50 | W.PN.INTV ---
Today's Communication / Plan
Recommendations
Follow H&H
Advancing diet
Atb
IMU versus telemetry if stable hemoglobin and clinical status
Assessment
-
Assessment:
Mr Hipolito Martínez is a 62/M adm 09-13 after planned robotic sigmoidectomy with take down of colovesical fistula with reported distal L ureteral injury (received intraop primary repair by Urology). Doing well postop, seen earlier today by CRS,
advancing to low residue, urology also following and planning exchange of L ureteral stent for internal JJ.
On afternoon 09-17 he was found slumped over side of bed, unresponsive, hypotensive, diaphoretic, regained consciousness upon being returned to supine position, as was about to be transferred to [facility] he did not have telemetry monitoring on,
started on IVFs, Cards consulted, TTE with normal LVEF and NWMAs (had normal TTE 09-07)
Labs noted progressive drop of Hgb from 13 to 8.6, mild progressive hyponatremia, mild hypokalemia, mildly elevated LA
Seen at ICU upon transfer 09-17, awake, in no resp distress, reports mild postop pain which is improving. Reported dark bloody stool on 09-16 and dark stools 09-17. Reports past out while sitting in bed at time of events
Impression:
Transient unresponsiveness
Suspected syncope secondary to acute moderate anemia
Progressive drop in Hgb from 13 on adm to 8.6
Dark bloody stools 09-16 (dark bilious color)
CT abd/p 09-17: hemoperitoneum
Hypotension, tachycardia
Requiring new onset NE and IVF resuscitation
Hyperdynamic LV on TTE 09-17
Mild progressive hyponatremia
Mild hypokalemia
Mildly elevated LA
Planned robotic sigmoidectomy with take down of colovesical fistula with reported distal L ureteral injury (received intraop primary repair by Urology): 09-13
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
Smoker
ETOH use
R hip replacement
Plan:
O2 protocol as needed
Currently on RA, POx 95%, in no resp distress
Transient unresponsiveness 09-17
Suspected syncope secondary to acute moderate anemia
Progressive drop in Hgb from 13 on adm to 8.6-7.8 on 09-17
Dark bloody stools 09-16
CT abd/p 09-17: hemoperitoneum, moderate
Hypotension, tachycardia
Required new onset NE (low dose for few hrs, then off as of 11 pm 09-17), and IVF resuscitation (LR 2L)
Hyperdynamic LV on TTE 09-17
2U PBRCs transfused: hgb 8.4 on 09-[address] abd/p c/c showed moderate hemoperitoneum
Pain mgmt
Interim drop in Hgb late 09-18 (6.7), received 1 U PRBCs, f/u Hgb 7.7, now down to 7.2 on 09-20
Continue H/H monitoring, transfusing as needed, 1 extra unit of red blood cells on September 20, since then hemoglobin slowly rising, currently at 8.7
IDA drain continues with bloody output
As of now no need for surgical intervention
Per surgery, will recheck H&H at 6 PM, if stable can transfer out of ICU
Starting low-dose to diet 09-21
Interim increase on drainage from IDA, repeat abdomen CT on September 20 showed decrease in hemoperitoneum
Demand related ^trop, seen by Cards, no intervention currently warranted
Continue ertapenem per surgery, postop atb since 09-14
Urology following for distal L ureteral injury during abd surgery 09-13
09-21: cystoscopy with exchange of left ureteral catheter for an indwelling JJ left ureteral stent
SCDs
PPI IV to po bid, d/c 09-21
Monitor for DTs
Per patient last ETOH drink one week ago as of 09-19
Has not scored MSAS
NRT
D/w MDT
D/w Mr Lange on a daily basis
Can downgrade to IMU or telem if no evidence of further bleeding, will sign off when
Diagnostic tests:
TTE 09-17-23
CONCLUSIONS
Limited 2D echo for eval of EF.
Normal left ventricular chamber size. Hyperdynamic left ventricular systolic function. Left ventricular ejection fraction is 70-75%. Normal regional wall motion.
Normal pericardium without effusion. No pleural effusion present.
Compared to the previous echo from Sep 07 2023, EF was 60-65% at that time.
SARAH doppler 09-18-23: negative
Subjective Dataa
Subjective Data
Date of Service:
Date of Service: September 21, 2023
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
Subjective:
No major events reported overnight
Remains respiratory and hemodynamically stable
Has not required more blood transfusions since yesterday
Abdominal IDA drain continues draining well
Received exchange of ureteral stents with no issue today
Review of Systems
General: Fever (n), Sweats (n), Chills (n) and Satisfactory Appetite
HEENT: Epistaxis (n)
Cardiopulmonary: Dyspnea (n), Cough (n) and Edema (n)
GI: Abdominal Pain, Nausea (n) and Vomiting
Neuro: Weakness
Objective Data
Data Reviewed
Vital Signs / I&O / Oxygen:
Vital Signs
Temp Pulse Resp BP Pulse Ox
100 F 93 18 108/77 100
09/21/23 08:30 09/21/23 08:45 09/21/23 08:45 09/21/23 08:45 09/21/23 08:45
Intake and Output
09/20/23 09/21/23 09/22/23
06:59 06:59 06:59
Intake Total 2119 100 / 100
Output Total 1944 4545 / 4545
Balance 175 / 125 -2505 / -2505 100 / 100
SaO2 100
Nasal Cannula flow liters per 2
minute
Physical Exam
General: Comfortable
HEENT: Normocephalic and Moist Mucous Membranes
Cardiovascular: Regular Rhythm, Murmur (n), Peripheral Edema (n) and Calf Tenderness (n)
Respiratory: Clear, Non-Labored Respirations and Stridor (n)
GI: Soft, Distended, Tender (mild ) and Other (IDA)
Neurology: Awake, AO x 3 and No Motor Deficits
Skin: Dry
Labs/Micro/Reports
Lab Data
09/21/23 04:06
09/21/23 04:06
[2023-09-21] MEDS: FOLVITE 1 MG PO (09:35)
--- NOTE | 2023-09-21 09:35 | PTCARENOTE ---
Pt received to room from PACU at 0915 awake and talkative. Only c/o Rt lower back discomfort. IDA drain remains intact, compressed w/ small amount of blood drainage noted. Pt received on O2 at 3l/min via NC w/ POx 97%. Pt requesting to have O2
removed, denies SOB. Pox 93-95% on RA. Will monitor. Physical assessment completed as documented. Full liquid diet order noted. Pt provided w/ water to drink at his request. Call suki w/in pt reach and safe environment maintained.
[2023-09-21] MEDS: NICODERM TRANSDERMAL 14 MG TRANSDERM (09:36)
[2023-09-21] MEDS: PROTONIX 40 MG PO (09:36)
--- NOTE | 2023-09-21 09:54 | W.PN.NEPH.PH ---
Today's Communication / Plan
-
follow BMP
Assessment/Plan
-
IMP:
Elective robotic sigmoidectomy with takedown of colovesicular fistula and repair of left ureteral injury
Hemorrhagic shock
post op ileus slowly resolving,
Hyponatremia
hx of alcohol use
Anemia, suspect acute blood loss
Elevated troponin, likely non-MT related to monitor
Hx of cig smoking
CHr pain on narcs
PLan:
-follow BMP
-continue FR
-
-
Date of Service: September 21, 2023
CC / HPI / ROS
-
Chief Complaint:
hyponatremia
History of Present Illness:
Na up to 134 after samsca
internalized ureteral stents
BPs stable
Review of Systems:
no CP/SOB
Labs
-
Labs:
WBC 9.4 10^3/uL (4.8-10.8) 09/21/23 04:06
RBC 2.70 10^6/uL (4.70-6.10) L 09/21/23 04:06
Hgb 8.7 g/dL (13.0-18.0) L 09/21/23 04:06
Hct 25.5 % (39.0-52.0) L 09/21/23 04:06
Plt Count 452 10^3/uL (130-400) H D 09/21/23 04:06
Sodium 134 mmol/L (135-145) L 09/21/23 04:06
Potassium 3.6 mmol/L (3.5-5.1) 09/21/23 04:06
Chloride 100 mmol/L (98-107) 09/21/23 04:06
Carbon Dioxide 26 mmol/L (22-30) 09/21/23 04:06
BUN 6 mg/dl (9-20) L 09/21/23 04:06
Creatinine 0.5 mg/dL (0.7-1.3) L 09/21/23 04:06
eGFR > 60.00 09/21/23 04:06
Glucose 113 mg/dl (70-99) H 09/21/23 04:06
Calcium 8.4 mg/dl (8.4-10.2) 09/21/23 04:06
Albumin 2.8 g/dl (3.5-5.0) L 09/17/23 15:05
Physical Exam
-
Vital Signs:
Vital Signs
Temp Pulse Resp BP Pulse Ox
99 F 67 12 108/70 100
09/21/23 08:45 09/21/23 08:45 09/21/23 08:45 09/21/23 08:45 09/21/23 08:45
Cardiovascular:: Regular rate and rhythm
Respiratory:: Bilateral: CTA
Lung Excursion:: Normal
Abdomen:: Nontender and Soft
Bowel Sounds:: Normal
Extremity Edema:: None: Bilateral:
--- NOTE | 2023-09-21 10:13 | W.PN.CRS1 ---
Addendum entered and electronically signed by Rui Ortiz MD 09/21/23 13:04:
Patient's , Paige, updated via phone conversation.
Addendum entered and electronically signed by Rui Ortiz MD 09/21/23 12:58:
I saw and examined the patient.
The PA's note was reviewed and I agree with the note.
Comment:
Seen in a.m. with PA in recovery room after stent changed by urology.
Patient awake and comfortable. No complaints. Tolerated fulls.
Afebrile and nontachycardic. White count normal at 9.4. Most recent hemoglobin stable a 8.7.
Abdomen moderately distended but nontender. Incisions look good. IDA with sanguinous output.
Diet advanced to low residue.
Will continue to follow hemoglobins.
Morgan is now out.
Continue empiric Invanz.
Continue to hold Lovenox with potential for resumption tomorrow.
Original Note:
Today's Communication / Plan
-
low residue
OOB with PT
recheck h/h at 18:00
Assessment/Plan
-
POD #8 �1) robotic sigmoidectomy 2) takedown colovesical fistula 3) takedown splenic flexure 4) partial small bowel resection 5) flexible sigmoidoscopy
Code called 09/17 for hypotension and tachycardia with unresponsiveness, transferred to ICU on Levophed (now off) s/p [address] shows moderate hemoperitoneum including an 8 cm intermediate density (53 Hounsfield units) fluid collection in the
pelvic mesentery and moderate intermediate density fluid throughout the pelvis and left subdiaphragmatic region.
Plan:
1.� Advance diet to low residue with Ensure.
2.� Vitals normal.
3.� Stent to remain in place until mid October, patient will f/u with urology in the office for removal.
4.� OOB as tolerated. PT ordered.
5.� Hold Lovenox given anemia.�Hold ASA 81mg for now. Anticipate restarting both tomorrow. Continue TEDs/SCDs for DVT prophylaxis.
6.� Trend hemoglobin BID.
7.� Okay for transfer out of ICU if next hemoglobin check at 18:00 is stable.
8.� Continue IDA drain for now (bloody output).
9.� Pain control: Tylenol standing, oxycodone po and Dilaudid IV for breakthrough pain.
10. Continue IV Invanz due to intraabdominal spillage. Anticipate a few more days.
11. I updated his Paige by phone.
Subjective Data
Procedure
09/14/2023- 1) robotic sigmoidectomy 2) takedown colovesical fistula 3) takedown splenic flexure 4) partial small bowel resection 5) flexible sigmoidoscopy
Subjective Data
Date of Service: September 21, 2023
Patient states he is less distended today. He has no pain. He denies nausea or vomiting. He is hungry.
Objective Data
-
Vital Signs
Temp Pulse Resp BP Pulse Ox
99 F 67 12 108/70 100
09/21/23 08:45 09/21/23 08:45 09/21/23 08:45 09/21/23 08:45 09/21/23 08:45
Intake & Output
09/20/23 09/21/23 09/22/23
06:59 06:59 06:59
Intake Total 2119 / 2169 100 / 100
Output Total 1944 4545 / 4545
Balance 175 / 125 -2505 / -2505 100 / 100
Intake:
Oral fluids 400 / 400 1230 / 1230
IV fluids (Total) 1150 / 1200 310 / 310 100 / 100
Lr 1,000 ml @ 50 mls/hr IV . 1150 / 1200 150 / 150
Q20H KARELY Rx#:[id number]
kcl 160 / 160
normosol 100 / 100
IV piggybacks 320 / 320
Blood Products 250 / 250 250 / 250
Packed red blood cells 250 / 250 250 / 250
Blood Product Amount Infused ( 250 / 250
mL)
Packed Rbc Leukoreduced Unit 250 / 250
[id number]
Output:
Drain Output (Total) 945 / 1045 520 / 520
Right Lower Abdomen Jose G- 945 / 1045 520 / 520
Mcdaniel
Urine, Morgan 1000 / 1000 4025 / 4025
Lab Results
09/21/23 04:06
Physical Exam
-
General: No Acute Distress and AOx3
Abdomen: Soft, Distended (mild, improving) and Non Tender
Skin: Warm and Dry
Incision: Clear, Dry, Intact
--- NOTE | 2023-09-21 10:30 | PTCARENOTE ---
Per Dr Ortiz- pt OK to get OOB and diet advanced to low residue. Pt assisted OOB and ambulated to BR w/ use of walker to void and complete AM hygiene. Tolerated increased activity w/o complaint or complication. Pt remains OOB in chair and provided
phone and menu and encouraged to order breakfast. Call cohn w/in pt reach and pt instructed to call and wait for staff assistance prior to getting out of chair. Pt verbalized understanding. Pt reports improvement in Rt lower back discomfort since
Oxycodone administered (see MAR for time)
--- NOTE | 2023-09-21 11:24 | W.PN.HOSP.TC ---
Today's Communication/Plan
-
Monitor vital signs and see plan
H&H later today
Consider transferring patient if okay with primary team
Monitor sodium
Assessment / Plan
Assessment / Plan
Elective robotic sigmoidectomy with takedown of colovesicular fistula
Hemorrhagic shock
post op ileus slowly resolving, ricci continues to drain bloody urine;s/p stent conversion 09/21
09/17 Patient found by nursing slumped over the side of his bed unresponsive, he was hypotensive and diaphoretic.� Initially fluids was started.� Urgent bedside echo with preserved EF.� Patient initially responded to fluids however was hypotensive
again.� Later on patient had a black bowel movement.� was started on levophed; now off
monitor H/H; transfuse as necessary
CT scan consistent with moderate hemoperitoneum. s/p blood transfusion; monitor hgb
Ricci catheter to continue, management per urology
now on LRD
cw PPI
Hyponatremia
Monitor
suspect SIADH; samsca 09/20; nephrology following
hx of alcohol use
Continue with fluid restriction
Anemia, suspect acute blood loss
CT scan with moderate hemoperitoneum
Colorectal surgery following
Monitor hemoglobin
Status post blood transfusion 09/17; another unit 09/20
H/H later today
Elevated troponin, likely non-IA related to monitor
Cardiology following
Hypokalemia
improved
Hx of alcohol use
pt states 2 Vodkas per day. Denies withdrawal symptoms, but drank regularly. No tremor or evidence of withdrawal currently
cw MSAS
Hx of cig smoking
reviewed importance of cessation
nicotine patch
full code
General: Well Developed, Well Nourished and No Apparent Distress
HEENT: Normocephalic, Atraumatic and Moist Mucous Membranes
Respiratory: Clear to Auscultation, no wheezing
Cardiac: Regular Rhythm and S1/S2
GI: Soft and Distended
Genito-urinary: Ricci
Musculoskeletal: No Clubbing, No Cyanosis and No Edema
Neuro: Awake, Alert and Oriented
Anticipated Discharge: 24 - 48 hours
Subjective/Interval History
-
Date of Service: September 21, 2023
denies pain
Objective Data
-
Labs:
Laboratory Results
09/21/23 09/21/23
04:06 18:00
WBC 9.4
Hgb 8.7 L Pending
Hct 25.5 L Pending
Plt Count 452 H D
Sodium 134 L
Potassium 3.6
Chloride 100
Carbon Dioxide 26
BUN 6 L
Creatinine 0.5 L
Glucose 113 H
Calcium 8.4
Vital Signs:
Vital Signs
Temp Pulse Resp BP Pulse Ox
99 F 67 12 108/70 100
09/21/23 08:45 09/21/23 08:45 09/21/23 08:45 09/21/23 08:45 09/21/23 08:45
I&O
09/20/23 09/21/23 09/22/23
06:59 06:59 06:59
Intake Total 2119 630 / 630
Output Total 1944 4545 / 4545 175 / 175
Balance 175 / 125 -2505 / -2505 455 / 455
[2023-09-21] MEDS: TYLENOL 650 MG PO ×4 (12:05→23:19)
--- NOTE | 2023-09-21 13:45 | PTCARENOTE ---
Patient rang call cohn for nurse, patient was holding the tube of his IDA drain pinched with his fingers and IDA bulp was on his bedside table. Stated it got stuck in his chair and he was standing up to stretch his legs. Drained IDA bulb, 20cc of
sanguinous drainage into toilet and reattached to cleansed tube. Notified Arlyn VILLAREAL. no further instructions given.
--- NOTE | 2023-09-21 14:00 | CM ---
CM following re: discharge planning.
Discussed in rounds, reviewed pt's chart, met with pt. Per rounds meeting, pt is POD #8 � robotic sigmoidectomy with takedown of colovesicular fistula, continue supportive care. Per chart review, continue IDA drain, Morgan is out. Colorectal surgery
following.
Pt reports he lives alone in a 2SH and was able to ambulate without any assistive devices. Pt reports his spouse lives separately and they are . Pt reports here he ambulates with a walker.
Pt stated he was told by he will not have IDA drain ad discharge.
Per [facility] CRS, pt declined inpatient and/or outpatient D&A treatment program and agrees with online AA meetings and sponsor support.
PT and OT evaluations noted - home PT recommended. Pt is aware and pt strongly declined home PT. CM explained the benefits of VN services and pt insisted no to have them.
D/C plan: Home with anticipated no needs. [facility] following.
CM will follow with discharge plan updates as hospitalization progresses
--- NOTE | 2023-09-21 14:55 | PTCARENOTE ---
Pt ambulated in halls with use of walker and supervision by this RN for distance of entire ICU/IMU unit. Tolerated well. No changes noted or new complaints received.
[2023-09-21 18:18] LABS: Hematocrit 24.7 % (39.0-52.0); Hemoglobin 8.6 g/dL (13.0-18.0)
--- NOTE | 2023-09-21 19:15 | PTCARENOTE ---
Assumed care of patient at 1900. Pt. currently OOB in chair. Awake, alert, and oriented. No complaints of pain at this time. Afebrile. Heart rhythm sinus. Blood pressure normotensive. Currently on room air. Lungs sound diminished. Low residue diet.
IDA drain RLQ of abdomen sanguineous drainage. Pt. voiding without issue. Skin as documented. Discussed plan of care. Vital signs stable at this time.
[2023-09-21] MEDS: FLOMAX 0.400000000000000022 MG PO (20:39)
[2023-09-21] MEDS: ROXICODONE 10 MG PO (23:20)
[2023-09-22] VITALS (13 sets, daily range): BP systolic 96–130; BP diastolic 63–86; BMI 26.5
--- NOTE | 2023-09-22 00:30 | PTCARENOTE ---
Pt. assessment unchanged. Currently in bed. PRN medication given for pain, see MAR. Pt. states pain is at a comfortable level now. Vital signs stable at this time.
[2023-09-22] MEDS: TYLENOL 650 MG PO ×5 (04:12→19:59)
[2023-09-22 04:42] LABS: % Basophils 0.2 % (0-2); % Eosinophils 0.6 % (0-6); % Lymphocytes 8.8 % (20.5-51.1); % Monocytes 10.9 % (1.7-9.3); % Neutrophils 78.5 % (42.2-75.2); Absolute Eosinophils 0.1 10^3/uL (0-0.7); Absolute Immature Granulocytes 0.1 10^3/uL (0-0.05); Absolute Lymphocytes 0.9 10^3/uL (1.2-3.4); Absolute Monocytes 1.2 10^3/uL (0.1-0.6); Absolute Neutrophils 8.3 10^3/uL (1.4-6.5); Hematocrit 23.3 % (39.0-52.0); Mean Corp Hgb Conc. 34.3 g/dL (33.0-37.0); Mean Corpuscular Hgb 32.3 pg (27.0-31.0); Mean Platelet Volume 8.7 fL (7.4-10.4); Nucleated Red Blood Cells % 0 % (-); Platelet Count 478 10^3/uL (130-400); Red Blood Cell Count 2.48 10^6/uL (4.70-6.10); White Blood Cell Count 10.6 10^3/uL (4.8-10.8)
[2023-09-22 05:09] LABS: Blood Urea Nitrogen 10 mg/dl (9-20); Carbon Dioxide 29 mmol/L (22-30); Chloride 100 mmol/L (98-107); Estimated Creatinine Clearance > 125 ml/min; Glucose 125 mg/dl (70-99); Potassium 3.7 mmol/L (3.5-5.1); Sodium 134 mmol/L (135-145); eGFR > 60.00
[2023-09-22] MEDS: ROXICODONE 5 MG PO ×3 (07:20→17:49)
[2023-09-22] MEDS: FOLVITE 1 MG PO (07:20)
[2023-09-22] MEDS: NICODERM TRANSDERMAL 14 MG TRANSDERM (07:20)
[2023-09-22] MEDS: INVANZ 60 MG IV (08:19)
--- NOTE | 2023-09-22 08:54 | W.PN.INTV ---
Today's Communication / Plan
Recommendations
Reconsult prn
Assessment
-
Assessment:
Mr Hipolito Martínez is a 62/M adm 09-13 after planned robotic sigmoidectomy with take down of colovesical fistula with reported distal L ureteral injury (received intraop primary repair by Urology). Doing well postop, seen earlier today by CRS,
advancing to low residue, urology also following and planning exchange of L ureteral stent for internal JJ.
On afternoon 09-17 he was found slumped over side of bed, unresponsive, hypotensive, diaphoretic, regained consciousness upon being returned to supine position, as was about to be transferred to [facility] he did not have telemetry monitoring on,
started on IVFs, Cards consulted, TTE with normal LVEF and NWMAs (had normal TTE 09-07)
Labs noted progressive drop of Hgb from 13 to 8.6, mild progressive hyponatremia, mild hypokalemia, mildly elevated LA
Seen at ICU upon transfer 09-17, awake, in no resp distress, reports mild postop pain which is improving. Reported dark bloody stool on 09-16 and dark stools 09-17. Reports past out while sitting in bed at time of events
Impression:
Transient unresponsiveness
Suspected syncope secondary to acute moderate anemia
Progressive drop in Hgb from 13 on adm to 8.6
Dark bloody stools 09-16 (dark bilious color)
CT abd/p 09-17: hemoperitoneum
Hypotension, tachycardia
Requiring new onset NE and IVF resuscitation
Hyperdynamic LV on TTE 09-17
Mild progressive hyponatremia
Mild hypokalemia
Mildly elevated LA
Planned robotic sigmoidectomy with take down of colovesical fistula with reported distal L ureteral injury (received intraop primary repair by Urology): 09-13
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
Smoker
ETOH use
R hip replacement
Plan:
O2 protocol as needed
Currently on RA, POx 95%, in no resp distress
Transient unresponsiveness 09-17
Suspected syncope secondary to acute moderate anemia
Progressive drop in Hgb from 13 on adm to 8.6-7.8 on 09-17
Dark bloody stools 09-16
CT abd/p 09-17: hemoperitoneum, moderate
Hypotension, tachycardia
Required new onset NE (low dose for few hrs, then off as of 11 pm 09-17), and IVF resuscitation (LR 2L)
Hyperdynamic LV on TTE 09-17
2U PBRCs transfused: hgb 8.4 on 09-[address] abd/p c/c showed moderate hemoperitoneum
Pain mgmt
Interim drop in Hgb late 09-18 (6.7), received 1 U PRBCs, f/u Hgb 7.7, now down to 7.2 on 09-20
Continue H/H monitoring, transfusing as needed, 1 extra unit of red blood cells on September 20, since then hemoglobin slowly rising, currently at 8.7
So far up to 5 U PRBCs transfused until 09-20
IDA drain continues with bloody output
As of now no need for surgical intervention
Per surgery, will recheck H&H at 6 PM, if stable can transfer out of ICU
Starting low-residue diet 09-21
Interim increase on drainage from IDA, repeat abdomen CT on September 20 showed decrease in hemoperitoneum
Demand related ^trop, seen by Cards, no intervention currently warranted
Continue ertapenem per surgery, postop atb since 09-14
Urology following for distal L ureteral injury during abd surgery 09-13
09-21: cystoscopy with exchange of left ureteral catheter for an indwelling JJ left ureteral stent
Plan to remove L ureteral stent in mid October, signed off 09-22
SCDs
PPI IV to po bid, d/c 09-21
Monitor for DTs
Per patient last ETOH drink one week ago as of 09-19
Has not scored MSAS
NRT
D/w MDT
D/w Mr Lange on a daily basis
Can downgrade to IMU or telem
Reconsult as needed
Diagnostic tests:
TTE 09-17-23
CONCLUSIONS
Limited 2D echo for eval of EF.
Normal left ventricular chamber size. Hyperdynamic left ventricular systolic function. Left ventricular ejection fraction is 70-75%. Normal regional wall motion.
Normal pericardium without effusion. No pleural effusion present.
Compared to the previous echo from Sep 07 2023, EF was 60-65% at that time.
SARAH doppler 09-18-23: negative
Subjective Dataa
Subjective Data
Date of Service:
Date of Service: September 22, 2023
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
Subjective:
No major events reported overnight
Tolerating oral diet
Denies complaints
Review of Systems
General: Fever (n), Sweats (n), Chills and Satisfactory Appetite
HEENT: Epistaxis and Dysphagia (n)
Cardiopulmonary: Dyspnea (n), Cough and Chest Pain
GI: Abdominal Pain, Nausea (n) and Vomiting (n)
Neuro: Weakness (n)
Objective Data
Data Reviewed
Vital Signs / I&O / Oxygen:
Vital Signs
Temp Pulse Resp BP Pulse Ox
98.6 F 81 15 109/63 95
09/22/23 07:27 09/22/23 06:07 09/22/23 06:07 09/22/23 06:07 09/22/23 08:27
Intake and Output
09/21/23 09/22/23 09/23/23
06:59 06:59 06:59
Intake Total 2039 / 185
Output Total 4545 / 4545 715 / 715
Balance -2505 / -2505 1135 / 1135
SaO2 95
Nasal Cannula flow liters per 3
minute
Physical Exam
General: Comfortable
HEENT: Normocephalic and Moist Mucous Membranes
Cardiovascular: Regular Rhythm, Murmur (n), Peripheral Edema (n) and Calf Tenderness (n)
Respiratory: Clear, Non-Labored Respirations and Stridor (n)
GI: Soft, Distended, Tender (mild ) and Other (IDA)
Neurology: Awake, AO x 3 and No Motor Deficits
Skin: Dry
Labs/Micro/Reports
Lab Data
09/22/23 04:11
--- NOTE | 2023-09-22 08:59 | PTCARENOTE ---
Addendum entered by Jimenez Booth RN 09/22/23 09:01:
Small sanguinous output from RLQ IDA drain.
Original Note:
Pt received oon in chair @ 0700 from previous shift. AAOx3. PRN Roxicodone 5mg PO administered for chronic (R) hip pain. Ambulating with minimal assistance, walks halls with rolling walker. SaO2 94% on room air. Coarse rhonchi auscultated
throughout. Nicotine patch applied to (R) upper arm. 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 MAP > 65 without pressors. Peripheral pulses palpable. No edema observed. Abdomen round. Bowel sounds present. Pt with (+) appetite. Voiding into urinal.
--- NOTE | 2023-09-22 09:38 | W.PN.NEPH.PH ---
Today's Communication / Plan
-
follow BMP
Assessment/Plan
-
IMP:
Elective robotic sigmoidectomy with takedown of colovesicular fistula and repair of left ureteral injury
Hemorrhagic shock
post op ileus slowly resolving,
Hyponatremia
hx of alcohol use
Anemia, suspect acute blood loss
Elevated troponin, likely non-NJ related to monitor
Hx of cig smoking
CHr pain on narcs
Plan:
-follow BMP
-continue modest FR
-will sign off
-
-
Date of Service: September 22, 2023
CC / HPI / ROS
-
Chief Complaint:
hyponatremia
History of Present Illness:
Na up to 134 stable
internalized ureteral stents
BPs stable
Review of Systems:
no CP/SOB
Labs
-
Labs:
WBC 10.6 10^3/uL (4.8-10.8) 09/22/23 04:11
RBC 2.48 10^6/uL (4.70-6.10) L 09/22/23 04:11
Plt Count 478 10^3/uL (130-400) H 09/22/23 04:11
Sodium 134 mmol/L (135-145) L 09/22/23 04:11
Potassium 3.7 mmol/L (3.5-5.1) 09/22/23 04:11
Chloride 100 mmol/L (98-107) 09/22/23 04:11
Carbon Dioxide 29 mmol/L (22-30) 09/22/23 04:11
BUN 10 mg/dl (9-20) 09/22/23 04:11
Creatinine 0.5 mg/dL (0.7-1.3) L 09/22/23 04:11
eGFR > 60.00 09/22/23 04:11
Glucose 125 mg/dl (70-99) H 09/22/23 04:11
Calcium 8.0 mg/dl (8.4-10.2) L 09/22/23 04:11
Albumin 2.8 g/dl (3.5-5.0) L 09/17/23 15:05
Physical Exam
-
Vital Signs:
Vital Signs
Temp Pulse Resp BP Pulse Ox
98.6 F 81 15 109/63 95
09/22/23 07:27 09/22/23 06:07 09/22/23 06:07 09/22/23 06:07 09/22/23 08:27
Cardiovascular:: Regular rate and rhythm
Respiratory:: Bilateral: Coarse
Lung Excursion:: Normal
Abdomen:: Nontender and Soft
Bowel Sounds:: Normal
Extremity Edema:: None: Bilateral:
--- NOTE | 2023-09-22 09:47 | W.PN.CRS1 ---
Today's Communication / Plan
-
Okay to transfer
Continue low residue diet
trend hgb
possible d/c tomorrow
Assessment/Plan
-
POD #9�1) robotic sigmoidectomy 2) takedown colovesical fistula 3) takedown splenic flexure 4) partial small bowel resection 5) flexible sigmoidoscopy
Code called 09/17 for hypotension and tachycardia with unresponsiveness, transferred to ICU on Levophed (now off) s/p [address] shows moderate hemoperitoneum including an 8 cm intermediate density (53 Hounsfield units) fluid collection in the
pelvic mesentery and moderate intermediate density fluid throughout the pelvis and left subdiaphragmatic region.
Plan:
1.� Continue low residue with Ensure.
2.� Vitals normal.
3.� Stent to remain in place until mid October, patient will f/u with urology in the office for removal.
4.� OOB as tolerated. PT ordered.
5.� Hold Lovenox given anemia and asa 81mg. Continue TEDs/SCDs for DVT prophylaxis.
6.� Trend hemoglobin BID. Hemoglobin this morning is 8.0.
7.� Okay for transfer out of ICU .
8.� Continue IDA drain for now (bloody output).
9.� Pain control: Tylenol standing, oxycodone po and Dilaudid IV for breakthrough pain.
10. Continue IV Invanz due to intraabdominal spillage. Anticipate a few more days.
11. Possible d/c tomorrow if hemoglobin remains improved.
Subjective Data
Procedure
09/14/2023- 1) robotic sigmoidectomy 2) takedown colovesical fistula 3) takedown splenic flexure 4) partial small bowel resection 5) flexible sigmoidoscopy
Subjective Data
Date of Service: September 22, 2023
Patient states he is eating well. He has no nausea or vomiting. He has not had a bowel movement in two days. He has flatus. He feels less distended. He has no pain.
Objective Data
-
Vital Signs
Temp Pulse Resp BP Pulse Ox
98.6 F 81 15 109/63 95
09/22/23 07:27 09/22/23 06:07 09/22/23 06:07 09/22/23 06:07 09/22/23 08:27
Intake & Output
09/21/23 09/22/23 09/23/23
06:59 06:59 06:59
Intake Total 204 / 2040 1850 / 1850
Output Total 4545 / 4545 715 / 715
Balance -2505 / -2505 1135 / 1135
Intake:
Oral fluids 1230 / 1230 1700 / 1700
IV fluids (Total) 310 / 310 100 / 100
Lr 1,000 ml @ 50 mls/hr IV . 150 / 150
Q20H KARELY Rx#:[id number]
kcl 160 / 160
normosol 100 / 100
IV piggybacks 50 / 50
Blood Products 250 / 250
Packed red blood cells 250 / 250
Blood Product Amount Infused ( 250 / 250
mL)
Packed Rbc Leukoreduced Unit 250 / 250
[id number]
Output:
Drain Output (Total) 520 / 520 40 / 40
Right Lower Abdomen Jose G- 520 / 520 40 / 40
Mcdaniel
Urine, Morgan 4025 / 4025
Urine, Voided 675 / 675
Other:
Number of approximated SMALL 2
amounts of urine
Number of approximated MODERATE 2
amounts of urine
Lab Results
09/22/23 04:11
Physical Exam
-
General: No Acute Distress and AOx3
Abdomen: Soft, Distended (Mild, improving) and Non Tender
Skin: Warm and Dry
--- NOTE | 2023-09-22 09:52 | W.PN.URO.CBU ---
Today's Communication / Plan
-
left ureteral stent will be removed mid-October
will sign off
Assessment / Plan
-
s/p colectomy with takedown of colo-ves fistula and repair of left ureteral injury
left ureteral catheter exchanged for internal JJ ureteral stent
Diagnosis
-
Date of Service: September 22, 2023
-
Patient Diagnosis:
Post Op Day:
Patient Diagnosis:
s/p colectomy with repair of colo-ves fistula and repair of left ureteral injury 09/12/23
s/p internalization of left ureteral stent 09/21/23
Subjective
-
Morgan removed in OR: 'I've gone several time since no problem.'
Objective
-
Vital Signs
Temp Pulse Resp BP Pulse Ox
98.6 F 81 15 109/63 95
09/22/23 07:27 09/22/23 06:07 09/22/23 06:07 09/22/23 06:07 09/22/23 08:27
Intake and Output
09/21/23 09/22/23 09/23/23
06:59 06:59 06:59
Intake Total 2039 / 2040 1850 / 1850
Output Total 4545 / 4545 715 / 715
Balance -2505 / -2505 1135 / 1135
Intake:
Oral fluids 1230 / 1230 1700 / 1700
IV fluids (Total) 310 / 310 100 / 100
Lr 1,000 ml @ 50 mls/hr IV . 150 / 150
Q20H KARELY Rx#:[id number]
kcl 160 / 160
normosol 100 / 100
IV piggybacks 50 / 50
Blood Products 250 / 250
Packed red blood cells 250 / 250
Blood Product Amount Infused ( 250 / 250
mL)
Packed Rbc Leukoreduced Unit 250 / 250
[id number]
Output:
Drain Output (Total) / 40 /
Right Lower Abdomen Jose G- / /
Mcdaniel
Urine, Morgan 4025 / 4025
Urine, Voided 675 / 675
Other:
Number of approximated SMALL 2
amounts of urine
Number of approximated MODERATE 2
amounts of urine
Laboratory Results
09/22/23 04:11
Physical Exam
-
General - well developed, well nourished, no acute distress
--- NOTE | 2023-09-22 11:10 | PTCARENOTE ---
Pt successfully ambulated length of ICU and IMU with a rolling walker. Denying dizziness. Sitting in chair at bedside.
--- NOTE | 2023-09-22 11:42 | W.PN.HOSP.TC ---
Today's Communication/Plan
-
Monitor vital signs and see plan
Monitor hemoglobin per colorectal
Consider downgrading if okay with colorectal surgery
Continue with fluid restriction
Assessment / Plan
Assessment / Plan
Elective robotic sigmoidectomy with takedown of colovesicular fistula
Hemorrhagic shock
post op ileus slowly resolving, ricci continues to drain bloody urine;s/p stent conversion 09/21
09/17 Patient found by nursing slumped over the side of his bed unresponsive, he was hypotensive and diaphoretic.� Initially fluids was started.� Urgent bedside echo with preserved EF.� Patient initially responded to fluids however was hypotensive
again.� Later on patient had a black bowel movement.� was started on levophed; now off
monitor H/H; transfuse as necessary
CT scan consistent with moderate hemoperitoneum. s/p blood transfusion; monitor hgb
left ureteral catheter exchanged for internal JJ ureteral stent 09/21
now on LRD
cw PPI
Hyponatremia
Monitor
suspect SIADH; samsca 09/20; nephrology following
hx of alcohol use
Continue with fluid restriction
Anemia, suspect acute blood loss
CT scan with moderate hemoperitoneum
Colorectal surgery following
Monitor hemoglobin
Status post blood transfusion 09/17; another unit 09/20
H/H later today per CRS
Elevated troponin, likely non-MS related to monitor
Cardiology following
Hypokalemia
improved
Hx of alcohol use
pt states 2 Vodkas per day. Denies withdrawal symptoms, but drank regularly. No tremor or evidence of withdrawal currently
cw MSAS
Hx of cig smoking
reviewed importance of cessation
nicotine patch
full code
General: Well Developed, Well Nourished and No Apparent Distress
HEENT: Normocephalic, Atraumatic and Moist Mucous Membranes
Respiratory: Clear to Auscultation, no wheezing
Cardiac: Regular Rhythm and S1/S2
GI: Soft and Distended
Genito-urinary: Ricci
Musculoskeletal: No Clubbing, No Cyanosis and No Edema
Neuro: Awake, Alert and Oriented
Anticipated Discharge: Within 24 hours
Subjective/Interval History
-
Date of Service: September 22, 2023
Denies pain
Objective Data
-
Labs:
Laboratory Results
09/22/23 09/22/23
04:11 18:00
WBC 10.6
Hgb 8.0 L Pending
Hct 23.3 L Pending
Plt Count 478 H
Sodium 134 L
Potassium 3.7
Chloride 100
Carbon Dioxide 29
BUN 10
Creatinine 0.5 L
Glucose 125 H
Calcium 8.0 L
Vital Signs:
Vital Signs
Temp Pulse Resp BP Pulse Ox
98.4 F 84 14 112/79 95
09/22/23 11:04 09/22/23 11:00 09/22/23 11:00 09/22/23 11:00 09/22/23 08:27
I&O
09/21/23 09/22/23 09/23/23
06:59 06:59 06:59
Intake Total 2039 1850 / 185 240 / 240
Output Total 4545 / 4545 715 / 715
Balance -2505 / -2505 1135 / 1135 240 / 240
[2023-09-22 18:18] LABS: Hemoglobin 8.5 g/dL (13.0-18.0)
[2023-09-22] MEDS: FLOMAX 0.400000000000000022 MG PO (19:58)
[2023-09-22] MEDS: ROXICODONE 10 MG PO (22:44)
[2023-09-23] MEDS: TYLENOL PO ×2 (00:30→09:05)
[2023-09-23 04:52] VITALS: BMI 27.0
[2023-09-23] MEDS: TYLENOL 650 MG PO (05:10)
[2023-09-23] MEDS: ROXICODONE 5 MG PO ×2 (05:10→09:28)
[2023-09-23 05:56] LABS: % Basophils 0.7 % (0-2); % Eosinophils 2.8 % (0-6); % Monocytes 8.2 % (1.7-9.3); % Neutrophils 77.3 % (42.2-75.2); Absolute Basophils 0.1 10^3/uL (0-0.2); Absolute Eosinophils 0.3 10^3/uL (0-0.7); Absolute Immature Granulocytes 0.1 10^3/uL (0-0.05); Absolute Lymphocytes 1.2 10^3/uL (1.2-3.4); Absolute Neutrophils 9.3 10^3/uL (1.4-6.5); Hematocrit 24.5 % (39.0-52.0); Hemoglobin 8.4 g/dL (13.0-18.0); Mean Corp Hgb Conc. 34.3 g/dL (33.0-37.0); Mean Corpuscular Hgb 32.4 pg (27.0-31.0); Mean Corpuscular Volume 94.6 fL (80.0-94.0); Mean Platelet Volume 8.7 fL (7.4-10.4); Nucleated Red Blood Cells % 0 % (-); Platelet Count 598 10^3/uL (130-400); Red Blood Cell Count 2.59 10^6/uL (4.70-6.10)
[2023-09-23 06:24] LABS: Blood Urea Nitrogen 14 mg/dl (9-20); Calcium 8.1 mg/dl (8.4-10.2); Carbon Dioxide 31 mmol/L (22-30); Chloride 100 mmol/L (98-107); Estimated Creatinine Clearance > 125 ml/min; Glucose 98 mg/dl (70-99); Potassium 3.9 mmol/L (3.5-5.1); Sodium 132 mmol/L (135-145); eGFR > 60.00
[2023-09-23 07:15] VITALS: BP 122/69
[2023-09-23] MEDS: NICODERM TRANSDERMAL 14 MG TRANSDERM (09:06)
[2023-09-23] MEDS: FOLVITE 1 MG PO (09:07)
[2023-09-23] MEDS: INVANZ IV (09:25)
--- NOTE | 2023-09-23 10:23 | W.PN.HOSP.TC ---
Today's Communication/Plan
-
Monitor vitals
See plan
cw fluid restriction
possible dc today by colorectal
monitor mild leukocytosis
Assessment / Plan
Assessment / Plan
Elective robotic sigmoidectomy with takedown of colovesicular fistula
Hemorrhagic shock
post op ileus slowly resolving, ricci continues to drain bloody urine;s/p stent conversion 09/21
09/17 Patient found by nursing slumped over the side of his bed unresponsive, he was hypotensive and diaphoretic.� Initially fluids was started.� Urgent bedside echo with preserved EF.� Patient initially responded to fluids however was hypotensive
again.� Later on patient had a black bowel movement.� was started on levophed; now off
monitor H/H; transfuse as necessary
CT scan consistent with moderate hemoperitoneum. s/p blood transfusion; monitor hgb
left ureteral catheter exchanged for internal JJ ureteral stent 09/21
now on LRD
cw PPI
Hyponatremia
Monitor
suspect SIADH; samsca 09/20; nephrology following
hx of alcohol use
Continue with fluid restriction
Anemia, suspect acute blood loss
CT scan with moderate hemoperitoneum
Colorectal surgery following
Monitor hemoglobin
Status post blood transfusion 09/17; another unit 09/20
H/H later today per CRS
Elevated troponin, likely non-MD related to monitor
Cardiology following
Hypokalemia
improved
Hx of alcohol use
pt states 2 Vodkas per day. Denies withdrawal symptoms, but drank regularly. No tremor or evidence of withdrawal currently
cw MSAS
Hx of cig smoking
reviewed importance of cessation
nicotine patch
full code
General: Well Developed, Well Nourished and No Apparent Distress
HEENT: Normocephalic, Atraumatic and Moist Mucous Membranes
Respiratory: Clear to Auscultation, no wheezing
Cardiac: Regular Rhythm and S1/S2
GI: Soft and Distended
Genito-urinary: Ricci
Musculoskeletal: No Clubbing, No Cyanosis and No Edema
Neuro: Awake, Alert and Oriented
Anticipated Discharge: Today
Subjective/Interval History
-
Date of Service: September 23, 2023
Denies pain
Objective Data
-
Labs:
Laboratory Results
09/23/23 09/23/23
05:23 18:00
WBC 12.0 H
Hgb 8.4 L Pending
Hct 24.5 L Pending
Plt Count 598 H D
Sodium 132 L
Potassium 3.9
Chloride 100
Carbon Dioxide 31 H
BUN 14
Creatinine 0.6 L
Glucose 98
Calcium 8.1 L
Vital Signs:
Vital Signs
Temp Pulse Resp BP Pulse Ox
98.9 F 82 18 122/69 98
09/23/23 07:15 09/23/23 07:15 09/23/23 07:15 09/23/23 07:15 09/23/23 07:15
I&O
09/22/23 09/23/23 09/24/23
06:59 06:59 06:59
Intake Total 1850 / 1850 920 / 920
Output Total 715 / 715
Balance 1135 / 1135 910 / 910
--- NOTE | 2023-09-23 11:56 | W.PN.CRS1 ---
Addendum entered and electronically signed by Arlyn Hernandez PA-C 09/24/23 13:58:
Of note, his hemoglobin was 12.6 on 09/13/2023 and had decreased on 8.4 on 09/17/2023. This was due to hemodilution and acute blood loss anemia.
Original Note:
Today's Communication / Plan
-
discharge
Assessment/Plan
-
POD #10�1) robotic sigmoidectomy 2) takedown colovesical fistula 3) takedown splenic flexure 4) partial small bowel resection 5) flexible sigmoidoscopy
Code called 09/17 for hypotension and tachycardia with unresponsiveness, transferred to ICU on Levophed (now off) s/p [address] shows moderate hemoperitoneum including an 8 cm intermediate density (53 Hounsfield units) fluid collection in the
pelvic mesentery and moderate intermediate density fluid throughout the pelvis and left subdiaphragmatic region.
Plan:
1.� Continue low residue with Ensure.
2.� Vitals normal.
3.� Stent to remain in place until mid October, patient will f/u with urology in the office for removal.
4.� OOB as tolerated. PT ordered.
5.� TEDs/SCDs for DVT prophylaxis.
6.� Hemoglobin remains stable at 8.4.
7.� MAYKEL drain removed at bedside.
9.� Pain control: Tylenol standing, oxycodone po and Dilaudid IV for breakthrough pain.
10. Outpatient course of antibiotics.
11. Okay for discharge today. Discharge instructions discussed with patient. Follow up with Dr. Ortiz in 2 weeks or sooner if needed.
12. ASA 81mg po on discharge.
Subjective Data
Procedure
09/14/2023- 1) robotic sigmoidectomy 2) takedown colovesical fistula 3) takedown splenic flexure 4) partial small bowel resection 5) flexible sigmoidoscopy
Subjective Data
Date of Service: September 23, 2023
Patient states he feels well. He has no complaints. He is tolerating a diet. He having bowel function. He has brown stools. He has no nausea or vomiting.
Objective Data
-
Vital Signs
Temp Pulse Resp BP Pulse Ox
98.9 F 82 18 122/69 98
09/23/23 07:15 09/23/23 07:15 09/23/23 07:15 09/23/23 07:15 09/23/23 07:15
Intake & Output
09/22/23 09/23/23 09/24/23
06:59 06:59 06:59
Intake Total 1850 / 1850 920 / 920
Output Total 715 / 715
Balance 1135 / 1135 910 / 910
Intake:
Oral fluids 1700 / 1700 920 / 920
IV fluids (Total) 100 / 100
normosol 100 / 100
IV piggybacks 50 / 50
Output:
Drain Output (Total) 40 / 40
Right Lower Abdomen Jose G- 40 / 40
Mcdaniel
Urine, Voided 675 / 675
Other:
Number of approximated SMALL 2
amounts of urine
Number of approximated MODERATE 2 1
amounts of urine
Lab Results
09/23/23 05:23
Physical Exam
-
General: No Acute Distress and AOx3
Abdomen: Soft, Non Distended, Non Tender and Other (maykel serosanguinous )
Skin: Warm and Dry
Incision: Clear, Dry, Intact
--- NOTE | 2023-09-23 12:07 | W.DS.TRANS ---
DC Summary - [employer]
-
Discharge Instructions:
Sleep Apnea Risk Intermediate
Discharge Diagnosis/Procedures Status post robotic sigmoidectomy, takedown
colovesical fistula, takedown splenic flexure,
partial small bowel resection, flexible
sigmoidoscopy
Diet Low Residue
Additional Diets Ensure supplements
Activity No strenuous activity
Additional Activity No lifting over 10lbs
Driving Restrictions Not until seen by your Dr
Bathing Restrictions OK to Shower
Blood Work CBC in 1 week
Wound Care Cover drain site with gauze and tape until heals
to protect clothing
Instructions: Low Fiber Diet
Stand-Alone Forms:
Changes to Home Medications: Yes
Discharge Medications:
DC Medications w/original date entered in [employer]
Balance Of Nature 2 cap PO DAILY Supplement 09/13/23
amoxicillin 875 mg-potassium clavulanate 125 mg tablet 1 tab PO Q12H 4 days #8 tabs 09/23/23
aspirin 81 mg capsule 81 mg PO DAILY #30 caps 09/23/23
oxycodone 5 mg tablet 5 mg PO Q6H PRN Pain #20 tabs 09/23/23
Home Medication Changes
amoxicillin 875 mg-potassium clavulanate 125 mg tablet 1 tab PO Q12H 4 days #8 tabs 09/23/23
aspirin 81 mg capsule 81 mg PO DAILY #30 caps 09/23/23
oxycodone 5 mg tablet 5 mg PO Q6H PRN Pain #20 tabs 09/23/23
Pending Results: No
--- NOTE | 2023-09-23 13:16 | CM ---
Chart reviewed home no needs.
Plan; Home no needs.
--- NOTE | 2023-10-24 13:22 | W.PN.UPDATE ---
Update Note
Progress Note Update
The correct date for the operation is 09/21/2023 [not 09/14/23].
== END 2023-09-23 13:21 | disposition home or self-care (01) | DRG 659 ==
LOC: 2 SOUTH 06:03
PROVIDERS: Internal Medicine Cardiovascular Disease; Nurse Practitioner Primary Care; Physician Assistant; Specialist; Surgery; Urology; ADMITTING PHYSICIAN Surgery; CONSULT PHYSICIAN Internal Medicine; CONSULT PHYSICIAN Internal Medicine Interventional Cardiology; FAMILY PHYSICIAN Family Medicine; OTHER PHYSICIAN Internal Medicine Pulmonary Disease
PROC: 0DNN4ZZ Release Sigmoid Colon, Percutaneous Endoscopic Approach (ICD-10-PCS; 2023-09-13)
PROC: 8E0W4CZ Robotic Assisted Procedure of Trunk Region, Percutaneous Endoscopic Approach (ICD-10-PCS; 2023-09-13)
PROC: 0DJD8ZZ Inspection of Lower Intestinal Tract, Via Natural or Artificial Opening Endoscopic (ICD-10-PCS; 2023-09-13)
PROC: 0TH983Z Insertion of Infusion Device into Ureter, Via Natural or Artificial Opening Endoscopic (ICD-10-PCS; 2023-09-13)
PROC: 0DBP4ZZ Excision of Rectum, Percutaneous Endoscopic Approach (ICD-10-PCS; 2023-09-13)
PROC: 0DTN4ZZ Resection of Sigmoid Colon, Percutaneous Endoscopic Approach (ICD-10-PCS; 2023-09-13)
PROC: 0DB84ZZ Excision of Small Intestine, Percutaneous Endoscopic Approach (ICD-10-PCS; 2023-09-13)
PROC: 0TQ74ZZ Repair Left Ureter, Percutaneous Endoscopic Approach (ICD-10-PCS; 2023-09-13)
PROC: 3E0K8KZ Introduction of Other Diagnostic Substance into Genitourinary Tract, Via Natural or Artificial Opening Endoscopic (ICD-10-PCS; 2023-09-13)
PROC: 0TP980Z Removal of Drainage Device from Ureter, Via Natural or Artificial Opening Endoscopic (ICD-10-PCS; 2023-09-14)
PROC: 0T9780Z Drainage of Left Ureter with Drainage Device, Via Natural or Artificial Opening Endoscopic (ICD-10-PCS; 2023-09-14)
PROC: 30233N1 Transfusion of Nonautologous Red Blood Cells into Peripheral Vein, Percutaneous Approach (ICD-10-PCS; 2023-09-17)
DX: N32.1 Vesicointestinal fistula (principal); K66.1 Hemoperitoneum; R57.8 Other shock; N99.72 Accidental puncture and laceration of a genitourinary system organ or structure during other procedure; S37.13XA Laceration of ureter, initial encounter; K56.7 Ileus, unspecified; K92.1 Melena; I5A Non-ischemic myocardial injury (non-traumatic); D62 Acute posthemorrhagic anemia; K57.32 Diverticulitis of large intestine without perforation or abscess without bleeding; E22.2 Syndrome of inappropriate secretion of antidiuretic hormone; I10 Essential (primary) hypertension; F17.200 Nicotine dependence, unspecified, uncomplicated; G89.29 Other chronic pain; M54.50 Low back pain, unspecified; K66.0 Peritoneal adhesions (postprocedural) (postinfection); Y65.8 Other specified misadventures during surgical and medical care; Y92.234 Operating room of hospital as the place of occurrence of the external cause; I95.81 Postprocedural hypotension; R61 Generalized hyperhidrosis; F10.90 Alcohol use, unspecified, uncomplicated; E87.6 Hypokalemia; R40.4 Transient alteration of awareness; Z96.641 Presence of right artificial hip joint; Z79.891 Long term (current) use of opiate analgesic; Z88.8 Allergy status to other drugs, medicaments and biological substances
CPT/HCPCS: 88307; 93308; 36415; 74018; 74174; 74177; 76000; 80048; 80053; 82570; 82962; 83036; 83605; 83735; 83930; 83935; 84300; 84443; 84484; 85014; 85018; 85025; 85027; 85610; 85730; 86850; 86900; 86901; 86920; 93005; 93970; 97163; C2617; J1335; P9016; P9058; Q9967

== ENCOUNTER → 2023-11-14 08:20 | Outpatient (REF) | payer MEDICARE, SELFPAY | LOC: RAD 08:20 | PROVIDERS: ATTENDING PHYSICIAN Specialist; FAMILY PHYSICIAN Family Medicine; REFERRING PHYSICIAN Surgery | DX: N13.5 Crossing vessel and stricture of ureter without hydronephrosis (principal); R60.9 Edema, unspecified | CPT/HCPCS: 76775; 93970 ==

== ENCOUNTER → 2024-01-24 15:47 | Outpatient (REF) | payer MEDICARE, OTHER, SELFPAY | LOC: RCS 15:47 | PROVIDERS: ATTENDING PHYSICIAN Nuclear Medicine Nuclear Cardiology; FAMILY PHYSICIAN Family Medicine | DX: I10 Essential (primary) hypertension (principal); R60.9 Edema, unspecified | CPT/HCPCS: 93306 ==

== ENCOUNTER → 2024-09-19 07:25 | Outpatient (REF) | payer MEDICARE, OTHER, SELFPAY | LOC: RAD 07:25 | PROVIDERS: ATTENDING PHYSICIAN Student in an Organized Health Care Education/Training Program; FAMILY PHYSICIAN Family Medicine | DX: R19.4 Change in bowel habit (principal); K59.00 Constipation, unspecified | CPT/HCPCS: 74019 ==

== ENCOUNTER 2024-10-06 06:25 | Day surgery (SDC) | payer MEDICARE, SELFPAY | END 2024-10-06 14:45 | disposition home or self-care (01) | LOC: GI 06:25 | PROVIDERS: ATTENDING PHYSICIAN Student in an Organized Health Care Education/Training Program | DX: D12.3 Benign neoplasm of transverse colon (principal); D17.5 Benign lipomatous neoplasm of intra-abdominal organs; K57.30 Diverticulosis of large intestine without perforation or abscess without bleeding; R19.4 Change in bowel habit; K59.00 Constipation, unspecified; Z98.0 Intestinal bypass and anastomosis status | CPT/HCPCS: 45385; 45380; 88305 ==

== ENCOUNTER 2024-12-19 20:24 | Emergency (ER) | payer MEDICARE, OTHER, SELFPAY ==
[2024-12-19] VITALS (14 sets, daily range): BP systolic 71–132; BP diastolic 46–87
[2024-12-19] MEDS: NSS 1000 IV (21:12)
[2024-12-19 21:25] LABS: % Basophils 0.8 % (0-2); % Eosinophils 1.7 % (0-6); % Immature Granulocytes 0.6 % (0-0.5); % Lymphocytes 17.8 % (20.5-51.1); % Monocytes 10.8 % (1.7-9.3); % Neutrophils 68.3 % (42.2-75.2); Absolute Basophils 0.1 10^3/uL (0-0.2); Absolute Eosinophils 0.1 10^3/uL (0-0.7); Absolute Lymphocytes 1.1 10^3/uL (1.2-3.4); Absolute Monocytes 0.7 10^3/uL (0.1-0.6); Absolute Neutrophils 4.4 10^3/uL (1.4-6.5); Hematocrit 37.6 % (39.0-52.0); Mean Corp Hgb Conc. 34.6 g/dL (33.0-37.0); Mean Corpuscular Hgb 33.5 pg (27.0-31.0); Mean Corpuscular Volume 96.9 fL (80.0-94.0); Mean Platelet Volume 10.2 fL (7.4-10.4); Nucleated Red Blood Cells % 0 % (-); Platelet Count 217 10^3/uL (130-400); Red Blood Cell Count 3.88 10^6/uL (4.70-6.10); Red Cell Dist. Width 14.6 % (11.5-14.5); White Blood Cell Count 6.4 10^3/uL (4.8-10.8)
[2024-12-19 21:44] LABS: ALT (SGPT) 57 U/L (0-50); AST (SGOT) 55 U/L (17-59); Alcohol 167 mg/dl; Alkaline Phosphatase 56 U/L (38-126); Blood Urea Nitrogen 16 mg/dl (9-20); Calcium 9.4 mg/dl (8.4-10.2); Carbon Dioxide 17 mmol/L (22-30); Chloride 108 mmol/L (98-107); Estimated Creatinine Clearance 70 ml/min; Glucose 90 mg/dl (70-99); Potassium 3.7 mmol/L (3.5-5.1); Sodium 142 mmol/L (135-145); Total Bilirubin 0.9 mg/dl (0.2-1.3); Total Protein 6.1 g/dl (6.3-8.2); eGFR > 60.00
--- NOTE | 2024-12-19 23:03 | ED.GENMED ---
History of Present Illness
General
Chief Complaint: Fall
Source: patient and other (Ambulance)
Exam Limitations: other (Intoxicated)
Time Seen by Provider: 12/19/24 21:06
History of Present Illness
History of Present Illness:
64-year-old male apparently had wandered and fallen out of his truck at his house. Bystander called for ambulance. Patient is unsure who called. No specific complaints via the patient
Past History
Past History
ED Past Medical History: HTN and Other (Sciatica, neck pain, back pain, hernia)
ED Past Surgical History: Orthopedic (Lumbar laminectomy, hip replacement) and Other (Hernia repair �2)
Patient has exhibited threatening behavior?: No
PSI?: No
Social History
Tobacco: Smoker
Alcohol: Chronic alcoholic
Drug: None
Living: with family
Review of Systems
Review of Systems
All Other Systems: Not applicable
Respiratory: Reports no symptoms
Cardiac: Reports no symptoms
ABD/GI: Reports no symptoms
Phy Exam
Physical Exam
Physical Exam:
TRAUMA EXAM:
VITAL SIGNS: Vital signs reviewed, cooperative. Moderately intoxicated
DISTRESS: No active disease
EYES: Pupils reactive, no orbital trauma
NOSE: No deformity or epistaxis
FACE AND SCALP: No scalp or facial trauma, external canals no blood
NECK: Supple nontender
BACK: Back nontender, pelvis stable to compression
RESPIRATORY: No distress, breath sounds normal, no tender chest wall
CARDIAC: No murmur, pulses equal and strong
ABDOMEN: Soft nontender bowel sounds normal
SKIN: Multiple abrasions to all extremities
EXTREMITIES: Nontender
NEUROLOGICAL: Alert, oriented, no motor deficits
PSYCH: Mood affect normal
Course
Orders/Labs/Results
Orders:
Orders
12/19/24 21:07
Cardiac Monitoring- Treatment ONCE
IV Insert/Care/Rem.- Treatment PRN
IV Insert/Care/Rem.- Treatment PRN
0.9% Sodium Chloride 1000 ml [Nss] 1,000 ml IV BOLUS
Pulse Ox/cont/shift [RESP] Stat
Quantity: 1
12/19/24 21:13
CT Abd/pel W Iv Cont (trauma) Urgent
Comment:
Reason For Exam: Fall/intoxicated/hypotension
CT Cervical Spine W/o Iv Contr Urgent
Comment:
Reason For Exam: Fall/intoxicated/hypotension
CT Head W/o Iv Contrast Urgent
Comment:
Reason For Exam: Fall/intoxicated/hypertension
Cardiac Monitoring- Treatment ONCE
12/19/24 21:14
Type+Screen Urgent
Alcohol Urgent
Complete Blood Count/With Diff Urgent
Comprehensive Metabolic Panel Urgent
12/20/24 00:15
0.9% Sodium Chloride 1000 ml [Nss] 1,000 ml Mvi, Adult [Multivitamin] 10 ml Thiamine Injection 100 mg IV 500 mls/hr
Abnormal Lab Results
12/19/24
21:14
RBC 3.88 L 10^6/uL
(4.70-6.10)
Hct 37.6 L %
(39.0-52.0)
MCV 96.9 H fL
(80.0-94.0)
MCH 33.5 H pg
(27.0-31.0)
RDW 14.6 H %
(11.5-14.5)
Absolute Lymphs (auto) 1.1 L 10^3/uL
(1.2-3.4)
Absolute Monos (auto) 0.7 H 10^3/uL
(0.1-0.6)
Immature Gran % 0.6 H %
(0-0.5)
Lymphocytes % 17.8 L %
(20.5-51.1)
Monocytes % 10.8 H %
(1.7-9.3)
Chloride 108 H mmol/L
(98-107)
Carbon Dioxide 17 L mmol/L
(22-30)
ALT 57 H U/L
(0-50)
Total Protein 6.1 L g/dl
(6.3-8.2)
Antibody Screen Positive A
(Negative)
12/19/24 21:14
12/19/24 21:14
Vital Signs
Initial and Last Documented VS:
Initial Vital Signs
Temp Pulse Resp BP Pulse Ox
98.5 F 104 18 98/71 93
12/19/24 20:27 12/19/24 20:27 12/19/24 20:27 12/19/24 20:27 12/19/24 20:27
Last Documented Vital Signs
Temp Pulse Resp BP Pulse Ox
98.5 F 70 15 132/85 97
12/19/24 20:27 12/20/24 02:30 12/20/24 02:30 12/20/24 02:30 12/20/24 01:30
MDM/Problems Addressed
Differential Diagnosis Includes:
Yeah patient presented in no distress and clinically low suspicion for significant injury related to his fall. However significant hypotension early in his arrival. Because of this CT of the abdomen and pelvis were ordered. These are
unremarkable. His blood pressure is improved. Nothing to support a head or neck issue. Will continue observation fluids and B cares involvement.
*Radiology
Radiology exam reviewed: radiology read reviewed (No acute findings)
*Pulse Oximetry
Patient hypoxic: no
*Critical Care Note
Total Time (30-74mins, 75-104mins- exclusive of procedures): Not Applicable
ED Attending Note
-
Portions of this chart may have been created with voice recognition software.� Occasional wrong word or��sound alike� substitutions may have occurred due to the inherent limitations of voice recognition software.
Discharge Plan
Departure
Patient Disposition: Home (Routine Discharge)
Date of Disposition: 12/20/24
Time of Disposition: 02:39
Patient with high blood pressure during this ER visit?: Yes
Discharge Problem:
Acute intoxication, History of alcohol use disorder, Multiple abrasions
Instructions: Skin Abrasions (DC), Alcohol use disorder - Discharge instructions
Prescriptions:
No Action
Balance Of Nature
2 cap PO DAILY
aspirin 81 mg capsule
81 mg PO DAILY Qty: 30 0RF
amoxicillin-pot clavulanate 875-125 mg tablet
1 tab PO Q12H 4 Days Qty: 8 0RF
oxycodone 5 mg tablet
5 mg PO Q6H PRN (Reason: Pain) Qty: 20 0RF
Referrals:
Nima Finch MD [Family Provider] - Follow up in 2-3 days
Activity Restrictions/Additional Instructions:
Follow-up as recommended by [facility]. Return here if worse or other concerns. Follow with your primary care doctor as well.
Interventions
Interventions:
*Risk Screen - Suicide Last Done: 12/19/24 20:27
*General Assessment Last Done: 12/19/24 20:27
*Neglect/Abuse Screening Last Done: 12/19/24 20:27
*ED COVID-19 Vaccine History Last Done: 12/19/24 20:27
*Nursing Disposition Last Done: 12/20/24 03:04
ED-Musculoskeletal Assessment Last Done: 12/19/24 20:41
ED- Neurological Assessment Last Done: 12/19/24 20:41
ED-Skin Assessment Last Done: 12/19/24 20:41
Discharge Date and Time
Discharge Date/Time: 12/20/24 03:04
Print Language: GUINEAN
[2024-12-20] VITALS (11 sets, daily range): BP systolic 104–141; BP diastolic 67–89
[2024-12-20] MEDS: MULTIVITAMIN 1011 ML IV (00:18)
[2024-12-20] MEDS: MULTIVITAMIN 1011 MG IV (00:18)
== END 2024-12-20 03:04 | disposition home or self-care (01) ==
LOC: EMR 20:24
PROVIDERS: EMERGENCY PHYSICIAN Emergency Medicine; FAMILY PHYSICIAN Radiology Radiation Oncology
DX: F10.129 Alcohol abuse with intoxication, unspecified (principal); S80.812A Abrasion, left lower leg, initial encounter; S80.811A Abrasion, right lower leg, initial encounter; S40.812A Abrasion of left upper arm, initial encounter; S40.811A Abrasion of right upper arm, initial encounter; W17.89XA Other fall from one level to another, initial encounter; I10 Essential (primary) hypertension; F17.200 Nicotine dependence, unspecified, uncomplicated
CPT/HCPCS: 99284; 96365; 96366; 70450; 72125; 74177; 80053; 82077; 85025; 86850; 86870; 86900; 86901; Q9967